=== PATIENT | female | born 1960 | race Caucasian/White ===

== ENCOUNTER 2022-06-18 09:56 | Outpatient (CLI) | payer MEDICAID, SELFPAY ==
[2022-06-18 10:44] LABS: Albumin* 4.2 g/dL (3.3-5.0); Chloride* 106 mmol/L (96-114); Sodium* 140 mmol/L (135-149)
[2022-06-18 10:45] LABS: Potassium* 4.1 mmol/L (3.6-5.1)
[2022-06-18 10:47] LABS: Alanine Aminotransferase* 19 U/L (4-35); Alkaline Phosphatase* 75 U/L (40-150); Aspartate Amino Transferase* 26 U/L (12-35); Bilirubin Total* 0.8 mg/dL (0.1-1.5); Blood Urea Nitrogen* 19 mg/dL (7-30); Calcium* 9.4 mg/dL (8.4-10.6); Carbon Dioxide* 29 mmol/L (20-32); Cholesterol* 215 mg/dL (90-199); Creatinine* 0.6 mg/dL (0.5-1.5); Estimated Glomerular Filt Rate 102 ml/min; Glucose* 84 mg/dL (60-115); Total Protein* 6.8 g/dL (6.0-8.3); Triglycerides* 150 mg/dL (40-149)
[2022-06-18 10:48] LABS: HDL Cholesterol* 58 mg/dL (>=50); LDL Cholesterol Calculated 127 mg/dL (<100)
[2022-06-18 15:02] LABS: Vitamin D 25 Hydroxy* 33 ng/mL (30-80)
== END 2022-06-18 09:57 | disposition home or self-care (01) ==
PROVIDERS: PCP Family Medicine; Visit Provider Family Medicine
DX: E78.5 Hyperlipidemia, unspecified (principal); R79.89 Other specified abnormal findings of blood chemistry
CPT/HCPCS: 80053; 80061; 82306

== ENCOUNTER 2023-07-25 08:23 | Outpatient (CLI) | payer MEDICAID, SELFPAY ==
--- OUTSIDE RECORDS SUMMARY | 2023-07-26 06:49 | XMS_ITS | Clinical Summary ---
Author Name Unknown Organization [facility] Address [address] [place] [address] Care Team Providers Care Dispatch Lead Name Role Phone Unavailable Primary Care Provider Unavailabl e Source Comments Patient records contain information from all sites at [facility]. For routine questions regarding patient records, call [phone] during business hours, M-F 8:00 AM - 5:00 PM Central Time. Record requests for emergency care only can be directed to [phone] at any time.[facility] Allergies No known active allergies Medications Medication Sig Dispensed Refills Start Date End Date Status lisinopriL (PRINIVIL,ZESTRIL) 10 mg tablet Take 1 tablet by mouth daily. 0 11/09/2016 Active multivitamin tablet Take 1 tablet by mouth daily. 0 08/09/2011 Active vit C/vit E/lutein/min/omega-3 (OCUVITE ORAL) Take 1 tablet by mouth daily. 0 Active calcium carb/vit D3/minerals (CALCIUM-VITAMIN D ORAL) Take 1 tablet by mouth daily. 600 mg with D3 0 Active omega 6-vpb-wdq-fish oil 1,000 mg (120 mg-180 mg) capsule Take 1 capsule by mouth daily. 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 Cancer Staging:Pathologic stage from 08/04/2021:Stage 0(pTis (DCIS), cN0, cM0, G3, ER+, OR+) - Unsigned Migraine Headache 06/15/2021 Deficiency Vitamin D 06/15/2021 Hypertension Essential Primary 06/15/2021 Encounters Date Type Department Care Team Description 07/24/2023 8:45 AM DIESEL RETROFIT INSTALLER Office Visit [facility] in [place], [place] [address] [place] [phone] Merlyn Sauceda, GENEVA, REWEAVER Cancer Breast Ductal In Situ Left (Primary Dx); Radiation Therapy Personal History; Cancer Breast Family History; Body Mass Index 39.0 To 39.9 Adult 07/11/2023 9:00 AM DIESEL RETROFIT INSTALLER Clinical Communication Virtual Review in [place], [place] [address] [place] [address] Pre-visit Intake 06/17/2023 1:46 PM DIESEL RETROFIT INSTALLER - 06/17/2023 11:59 PM DIESEL RETROFIT INSTALLER Hospital Encounter Department of Radiology in [place], [place] [address] [place] [phone] Laura Santacruz APRN, C.N.P., M.S.N. Cancer Breast Personal History; Screening Mammogram Breast Cancer Discharge Disposition: Home or Self Care 06/17/2023 7:37 AM DIESEL RETROFIT INSTALLER - 06/17/2023 1:45 PM DIESEL RETROFIT INSTALLER Hospital Encounter Department of Radiology in [place], [place] [address] [place] [phone] Laura Santacruz APRN, C.N.P., M.S.N. Dense Breasts, Unspecified Discharge Disposition: Home or Self Care from Last 3 Months Immunizations Name Administration Dates Next Due HepB Adult 04/07/2019,01/22/2003 HepB, Unspecified 07/11/2023(Deferred: Other - up to date) Influenza, Injectable, Mdck, Preservative Free, Quadrivalent 03/21/2023 Influenza, Seasonal, Injectable 04/11/2011 PCV20 07/11/2023(Deferred: Other - not up to date. would like information) PPSV23 12/24/2017 RZV (SHINGRIX) 09/26/2018,12/24/2017 SARS-COV-2 (COVID-19) - PFIZ ER (12 YEARS OR OLDER) [id number] 03/21/2023 Tdap 12/24/2017,11/20/2006 influenza vaccine QV(FLUBLOK ) (18 years or older) (PF) 04/07/2019 influenza vaccine quad (FLUZONE/FLUARIX) (6 months and older)(PF) 04/23/2022,04/06/2021,04/30/2018 Family History Medical History Relation Name Comments ADD Daughter 1 Cheryl Raza Anxiety disorder Daughter 1 Cheryl Raza Depression Daughter 1 Cheryl Raza ADD Daughter 2 Renzo Raza Heart attack Father Angel Luis Renee in his 90' s Hyperlipidemia Father Angel Luis Renee Hypertension Father Angel Luis Renee Breast cancer Mother Renzo Renee in 1989 a t age 54 Obesity Mother Renzo Renee Diabetes Paternal Grandmother Maida Frankie Sleep apnea Sister 1 Neetu Oswald Relation Name Status Comments Daughter 1 Cheryl Raza Daughter 2 Renzo Raza Father Angel Luis Renee Maternal Grandfather Maternal Grandmother Mother Renzo Renee Paternal Grandfather Paternal Grandmother Maida Frankie Sister 1 Neetu Oswald Alive Sister 2 Rowbanner Alive Social History Tobacco Use Types Packs/Day Years Used Date Smoking Tobacco: Never Passive Smoke Exposure: Never Smokeless Tobacco: Never Tobacco Cessation:Counseling Given: Not Answered Alcohol Use Standard Drinks/Week Comments Yes 0 (1 standard drink = 0.6 oz pure alcohol) maybe one glass of wine or mixed drink a month [facility] Gazoob Answer Date Recorded In the past 12 months has [facility] [employer], [employer], or water [employer] threatened to shut off services in your home? No 07/05/2023 Humiliation, Afraid, Rape, and Kick questionnair e Answer Date Recorded Within the last year, have y ou been afraid of your partner or ex-partner? No 02/14/2022 Within the last year, have y ou been humiliated or emotionally abused in other ways by your partner or ex-partner? No Within the last year, have y ou been kicked, hit, slapped, or otherwise physically hurt by your partner or ex-partner? No 02/14/2022 Within the last year, have y ou been raped or forced to have any kind of sexual activity by your partner or ex-partner? No 02/14/2022 Social Connection and Isolat ion Panel [NHANES] Answer Date Recorded In a typical week, how many times do you talk on the phone with family, friends, or neighbors? More than three times a week 02/14/2022 How often do you get togethe r with friends or relatives? Patient declined 02/14/2022 How often do you attend chur ch or amish services? Never 02/14/2022 Do you belong to any clubs o r organizations such as sikh groups, unions, fraternal or athletic groups, or school groups? No 02/14/2022 How often do you attend meet ings of the clubs or organizations you belong to? Patient declined 02/14/2022 Are you , , di vorced, , never , or living with a partner? 02/14/2022 AUDIT-C Answer Date Recorded Q1: How often do you have a drink containing alc ohol? Monthly or less 02/14/2022 Q2: How many drinks containi ng alcohol do you have on a typical day when you are drinking? Patient declined 02/14/2022 Q3: How often do you have si x or more drinks on one occasion? Never 02/14/2022 Overall Financial Resource Strain (CARDIA) Answe r Date Recorded How hard is it for you to pa y for the very basics like food, housing, medical care, and heating? Patient declined 02/14/2022 [facility] Occup[facility] ional [facility] - Occupational Stress Questionnaire Answer Date Recorded Do you feel stress - tense, restless, nervous, or anxious, or unable to sleep at night because your mind is troubled all the time - these days? Only a little 02/14/2022 Exercise Vital Sign Answer Date Recorde d On average, how many days pe r week do you engage in moderate to strenuous exercise (like a brisk walk)? 4 days 07/05/2023 On average, how many minutes do you engage in exercise at this level? 20 min 07/05/2023 Hunger Vital Sign Answer Date Recorded Within the past 12 months, y ou worried that your food would run out before you got the money to buy more. Never true 07/05/19 24 Within the past 12 months, t he food you bought just didn't last and you didn't have money to get more. Never true 07/05/2023 PRAPARE - Transportation Answer Date Re corded In the past 12 months, has l ack of transportation kept you from medical appointments or from getting medications? No 10/2023 In the past 12 months, has l ack of transportation kept you from meetings, work, or from getting things needed for daily living? No 07/05/2023 Nutrition Answer Date Recorded Nutrition: EVOO Fat Source Yes 07/05 On average, how many serving s of fruits and vegetables do you eat per day (serving size is equal to 1 cup or approximately the size of a tennis ball)? 3-5 07/05/2023 Dental Answer Date Recorded Dental: Regular Dentist Yes 06/20/20 Employment Answer Date Recorded Employment status Employed and actively working without restrictions 02/14/2022 Housing Stability Answer Date Recorded What is your living situation today? I have a [facility] place to live 07/05/2023 Education Answer Date Recorded What is the highest level of school you have completed or the highest degree you have received? Bachelor's degree (e.g., BA, AB, BS) 06/20/2021 Sex and Gender Information Value Date Recorded Sex Assigned at Female 06/20/2021 7:53 PM DIESEL RETROFIT INSTALLER Gender Identity Female 06/20/2021 7:53 PM DIESEL RETROFIT INSTALLER Sexual Orientation Straight 06/20/2021 7: 53 PM DIESEL RETROFIT INSTALLER Last Filed Vital Signs Vital Sign Reading Time Taken Comments Blood Pressure 126/81 07/24/2023 8:35 AM DIESEL RETROFIT INSTALLER Pulse 60 07/24/2023 8:35 AM DIESEL RETROFIT INSTALLER Temperature 36.4 ??C (97.5 ??F) 09/27/2021 3:19 PM CD T Respiratory Rate 14 08/04/2021 3:36 PM DIESEL RETROFIT INSTALLER Oxygen Saturation 99% 08/04/2021 3:36 PM DIESEL RETROFIT INSTALLER Inhaled Oxygen Concentration - - Weight 104 kg (228 lb 8.1 oz) 07/24/2023 8:35 AM DIESEL RETROFIT INSTALLER Height 162.3 cm (5' 3.9) 07/24/2023 8:35 AM DIESEL RETROFIT INSTALLER Body Mass Index 39.35 07/24/2023 8:35 AM DIESEL RETROFIT INSTALLER Plan of Treatment Health Maintenance Due Date Last Done Comments CT Colonography 1960 Cologuard 1960 Creatinine Level (Kidney Function Test) 1960 FIT 1960 Fasting Glucose for Diabetes Screening 1960 HIV Screening 1960 Hepatitis C Screening 1960 Lipid (Cholesterol) Screening 1960 Potassium Level 1960 Sodium Level 1960 Pneumococcal vaccine (0-64 years) (2 of 2 - PCV) 12/24/2018 12/24/2017 Hepatitis B Vaccines (3 of 3 - 19+ 3-dose series) 06/02/2019 04/07/2019, 01/22/2003 Depression Screening (Annual PHQ-2) 07/01/2023 Cervical Cancer Screening 06/07/20242020 (Performed elsewhere), 04/07/2019 Mammogram 06/17/2024 06/17/2023, 05/31, 06/22/2021, Additional history exists Office Visit for Blood Pressure Check / Re-check 07/24/2024 07/24/2023 DTaP,Tdap,and Td Vaccines (3 - Td or Tdap) 12/25/2027 12/24/2017, 11/20/2006 Colonoscopy 10/04/2031 10/03/2021 (Perf ormed elsewhere) Colorectal Cancer Screening 10/04/2031 Zoster Vaccines Completed 09/26/2018, 12/24/2017 COVID-19 Vaccine Completed 03/21/2023, 01/2023, 03/25/2022, Additional history exists Influenza Vaccine Completed 03/21/2023, , 04/06/2021, Additional history exists HPV Vaccines Aged Out No longer eligi ble based on patient's age to complete this topic Medical Devices Implanted Type Area Phytopathology Teacher Device Identifier Shelf Expiration Date Model / Serial / Lot Clp Hrzn Ti 6 Clp Sm Red - [id number] Implanted:Qty: 1 on 08/04/2021 by Shashi Cheema M.D. at [facility] Hardware e.g. pins/screws/r ods Loot! [id number] / / Procedures Procedure Name Priority Date/Time Associated Diagnosis Comments BI BREAST DIAGNOSTIC BILATERAL WITH TOMOSYNTHESIS RAD - Routine (most inpatients and all outpatients) 06/17/2023 2:19 PM DIESEL RETROFIT INSTALLER Cancer Breast Personal History Screening Mammogram Breast Cancer NM MBI BREAST STUDY RAD - Routine (most inpatients and all outpatients) 06/17/2023 9:07 AM DIESEL RETROFIT INSTALLER Dense Breasts, Unspecified from Last 3 Months Results * BI Breast Diagnostic Bilateral with Tomosynthesis (06/17/2023 2:19 PM DIESEL RETROFIT INSTALLER) Anatomical Region Laterality Modality Breast, Breast Imaging RST L OS, Breast Imaging ARZ LOS, Breast Imaging FLA LOS Bilateral Mammography 06/17/2023 2:35 PM DIESEL RETROFIT INSTALLER Impressions 06/17/2023 2:51 PM DIESEL RETROFIT INSTALLER No mammographic findings of malignancy. RECOMMENDATION: ??Resume Routine Mammogram Annual diagnostic mammography is recommended for the 1st 5 years following breast conservation therapy. ASSESSMENT: ??BI-RADS: 1: Negative. Narrative 06/17/2023 2:51 PM DIESEL RETROFIT INSTALLER EXAM: ??BI BREAST DIAGNOSTIC BILATERAL WITH TOMOSYNTHESIS INDICATION: ??History of left breast cancer status post lumpectomy and radiation in 2021. COMPARISON: ??Prior exam(s) were available and reviewed for comparison. DENSITY: ??c. The breast(s) are heterogeneously dense, which may obscure small masses. FINDINGS: ??Postoperative and post radiation change in the left breast. No change since prior exam. Procedure Note Melly Gatica M.D. - 06/17/2023 EXAM: BI BREAST DIAGNOSTIC BILATERAL WITH TOMOSYNTHESIS INDICATION: History of left breast cancer status post lumpectomy andradiation in 2021. COMPARISON: Prior exam(s) were available and reviewed for comparison. DENSITY: c. The breast(s) are heterogeneously dense, which may obscuresmall masses. FINDINGS: Postoperative and post radiation change in the left breast. Nochange since prior exam. IMPRESSION: No mammographic findings of malignancy. RECOMMENDATION: Resume Routine Mammogram Annual diagnostic mammography is recommended for the 1st 5 years followingbreast conservation therapy. ASSESSMENT: BI-RADS: 1: Negative. Laura Santacruz APRN, C.N.P., M.S.N. IMG B I PROCEDURES * (ABNORMAL) WI Molecular Breast Imaging (06/17/2023 9:07 AM DIESEL RETROFIT INSTALLER) Anatomical Region Laterality Modality Breast, Nuclear Medicine RST LOS, Breast Imaging ARZ LOS, Breast Imaging FLA LOS, Nuclear Medicine N/A Nuclear Medic ine 06/17/2023 9:54 AM DIESEL RETROFIT INSTALLER Impressions 06/17/2023 9:58 AM DIESEL RETROFIT INSTALLER Stable probably benign uptake in the left breast. RECOMMENDATION: ??Short-Term Follow-Up 12 Month MBI in 12 months. Annual post lumpectomy diagnostic mammogram which will be due May 2023. ASSESSMENT: ??BI-RADS: 3: Probably Benign. Narrative 06/17/2023 9:58 AM DIESEL RETROFIT INSTALLER EXAM: ??NM MOLECULAR BREAST IMAGING INDICATION: ??MBI follow-up HORMONAL STATUS: ??Postmenopausal. COMPARISON: ??No prior exams were available for comparison. TECHNIQUE: ??Bilateral CC and MLO views obtained on a dual-head CZT gamma camera after radiotracer injection. ?? RADIOISOTOPE DOSE: ?? Route: intravenous technetium Tc 99m sestamibi injection (MBI) (Tc-99m SESTAMIBI),8.8 millicurie BACKGROUND UPTAKE INTENSITY: ??b. Minimal/Mild FINDINGS: ?? RIGHT BREAST: ??No abnormal radiotracer uptake in the right breast. LEFT BREAST: ??Stable mild intensity radiotracer uptake in the upper outer left breast posterior depth corresponding to the lumpectomy site. Procedure Note Shahana Ocasio M.D. - 06/17/2023 EXAM: NM MOLECULAR BREAST IMAGING INDICATION: MBI follow-up HORMONAL STATUS: Postmenopausal. COMPARISON: No prior exams were available for comparison. TECHNIQUE: Bilateral CC and MLO views obtained on a dual-head CZT gammacamera after radiotracer injection. RADIOISOTOPE DOSE: Route: intravenous technetium Tc 99m sestamibi injection (MBI) (Tc-99m SESTAMIBI),8.8millicurie BACKGROUND UPTAKE INTENSITY: b. Minimal/Mild FINDINGS: RIGHT BREAST: No abnormal radiotracer uptake in the right breast. LEFT BREAST: Stable mild intensity radiotracer uptake in the upper outerleft breast posterior depth corresponding to the lumpectomy site. IMPRESSION: Stable probably benign uptake in the left breast. RECOMMENDATION: Short-Term Follow-Up 12 Month MBI in 12 months. Annual post lumpectomy diagnostic mammogram which willbe due May 2023. ASSESSMENT: BI-RADS: 3: Probably Benign. Laura Santacruz APRN, C.N.P., M.S.N. IMG N M PROCEDURES from Last 3 Months Advance Directives For more information, please contact: [phone] Latest Code Status on File Code Status Date Activated Date Inactivated Comments Full Code 08/04/2021 8:10 AM 08/04/2021 7:57 PM Question Answer Comments Full Code: Not Discussed Due to: Not medically appropriate
--- OUTSIDE RECORDS SUMMARY | 2023-07-26 06:50 | XMS_ITS | Encounter Summary ---
Author Name Unknown Organization [facility] Address [address] [place] [address] Care Team Providers Care Documentation Analyst Name Role Phone Unavailable Primary Care Provider Unavailabl e Reason for Visit * Reason Onset Date Comments imaging 04/15/2023 Encounter Details Date Type Department Care Team (Late st Contact Info) Description 04/15/2023 Clinical Communication Breast Diagnostic Clinic in [place], [place] [address] [place] [phone] Laura Santacruz, GENEVA, C.N.P., M.S.N. [address] [place] [phone] imaging Social History Tobacco Use Types Packs/Day Years Used Date Smoking Tobacco: Never Smokeless Tobacco: Never Alcohol Use Standard Drinks/Week Comments Yes 0 (1 standard drink = 0.6 oz pure alcohol) maybe one glass of wine or mixed drink a month Humiliation, Afraid, Rape, and Kick questionnair e [...] often do you attend chur ch or catholic services? Never 02/14/2022 Do you belong to any clubs o r organizations such as baptism groups, unions, fraternal or athletic groups, or [...] medical care, and heating? Patient declined 02/14/2022 [facility] - Occupational Stress Questionnaire Answer Date Recorded [...] exercise (like a brisk walk)? 4 days 02/14/2022 On average, how many minutes do you engage in exercise at this level? 20 min 02/14/2022 Hunger Vital Sign Answer Date Recorded Within the past 12 months, y ou worried that your food would run out before you got the money to buy more. Never true 08/17/20 22 Within the past 12 months, t he food you bought just didn't last and you didn't have money to get more. Never true 02/14/2022 PRAPARE - Transportation Answer Date Re corded In the past 12 months, has l ack of transportation kept you from medical appointments or from getting medications? No 01/29 In the past 12 months, has l ack of transportation kept you from meetings, work, or from getting things needed for daily living? No 02/14/2022 Housing Stability Vital Sign Answer Dewayne e Recorded In the last 12 months, was t here a time when you were not able to pay the mortgage or rent on time? Patient refused 02/15/20 In the last 12 months, how many places have you lived? 1 02/14/2022 In the last 12 months, was t here a time when you did not have a steady place to sleep or slept in a long term (including now)? No 02/14/2022 Nutrition Answer Date Recorded Nutrition: EVOO Fat Source Yes 02/14 On average, how many serving s of fruits and vegetables do you eat per day (serving size is equal to 1 cup or approximately the size of a tennis ball)? 2-3 02/14/2022 Dental Answer Date Recorded Dental: Regular Dentist Yes 06/20/20 Employment Answer Date Recorded Employment status Employed and actively working without restrictions 02/14/2022 Education Answer Date Recorded What is the highest level of school you have completed or the highest degree you have received? Bachelor's degree (e.g., BA, AB, BS) 06/20/2021 Sex and Gender Information Value Date Recorded Sex Assigned at Female 06/20/2021 7:53 PM SURGERY AID Gender Identity Female 06/20/2021 7:53 PM SURGERY AID Sexual Orientation Straight 06/20/2021 7: 53 PM SURGERY AID documented as of this encounter Miscellaneous Notes * Telephone Encounter - Mya Olguin - 04/22/2023 12:20 PM CDT Srinivas Vick is now open for this week. Please advise. * Telephone Encounter - Mya Olguin - 04/15/2023 9:08 AM CDT Nicanor, Patient called in today stating that her insurance reached out and that it is going to change come July and will no longer cover her MBI. She is currently scheduled to see you in Jul but would like to get her imaging done in May while ins still covers. Checking to see if this is fine with you? Thank you. documented in this encounter Plan of Treatment Not on file documented as of this encounter Visit Diagnoses Not on filedocumented in this encounter
--- OUTSIDE RECORDS SUMMARY | 2023-07-26 06:50 | XMS_ITS | Encounter Summary ---
Author Name Unknown Organization [facility] Address [address] [place] [address] Care Team Providers Care Malt Roaster Name Role Phone Unavailable Primary Care Provider Unavailabl e Reason for Visit * Reason Onset Date Comments Pre-visit Intake 12/24/2022 Encounter Details Date Type Department Care Team (Latest Contact Info) Description 12/24/2022 9:30 AM CDT Clinical Communication Virtual Review in [place], [place] 200 [place] [address] Pre-visit Intake Social History Tobacco Use Types Packs/Day Years Used Date Smoking Tobacco: Never Smokeless Tobacco: Never Tobacco Cessation:Counseling Given: [...] often do you attend chur ch or cheondoism services? Never 02/14/2022 Do you belong to any clubs o r organizations such as rastafarian groups, unions, fraternal or athletic groups, or [...] medical care, and heating? Patient declined 02/14/2022 [facility] Occupat ional Health - Occupational Stress Questionnaire [...] the money to buy more. Never true 02/15/20 22 Within the past 12 months, t [...] place to sleep or slept in a fdc (including now)? No 02/14/2022 Nutrition Answer Date [...] Sex Assigned at Female 06/20/2021 7:53 PM CALCULUS PROFESSOR Gender Identity Female 06/20/2021 7:53 PM CALCULUS PROFESSOR Sexual Orientation Straight 06/20/2021 7: 53 PM CALCULUS PROFESSOR documented as of this encounter Plan of Treatment Not on file documented as of this encounter Visit Diagnoses Not on filedocumented in this encounter
--- OUTSIDE RECORDS SUMMARY | 2023-07-26 06:50 | XMS_ITS | Encounter Summary ---
Author Name Unknown Organization [facility] Address [address] [place] [id number] Care Team Providers Care Dredge Master Name Role Phone Unavailable Primary Care Provider Unavailabl e Reason for Referral * Outpatient (Routine) - Authorized Specialty Diagnoses / Procedures Referred By Contac t Referred To Contact Diagnoses Dense Breasts, Unspecified Procedures NM Molecular Breast Imaging Laura Santacruz APRN, C.ND[place], M.S.N. [address] [place] [phone] [facility] Referral ID Status Reason Start Date Expiration Date V isits Requested Visits Authorized [id number] Authorized 12/25/2022 12/25/2023 6 6 ING SPECIALIST Reason for Visit * Outpatient (Routine) - Authorized Specialty Diagnoses / Procedures Referred By Contac t Referred To Contact Diagnoses Dense Breasts, Unspecified Procedures NM Molecular Breast Imaging Laura Santacruz APRN, C.ND[place], M.S.N. [address] [place] [phone] [facility] Referral ID Status Reason Start Date Expiration Date V isits Requested Visits Authorized [id number] Authorized 12/25/2022 12/25/2023 6 6 Encounter Details Date Type Department Care Team (Latest Contact Info) Description 06/17/2023 7:37 AM SELLING SPECIALIST - 06/17/2023 1:45 PM SELLING SPECIALIST Hospital Encounter Department of Radiology in [place], [place] [address] [place] [address] Laura Satnacruz APRN, C.N.P., M.S.N. [address] [place] [address] Dense Breasts, Unspecified Discharge Disposition: Home or Self Care Social History Tobacco Use Types Packs/Day Years [...] often do you attend chur ch or rastafarian services? Never 02/14/2022 Do you belong to any clubs o r organizations such as alevism groups, unions, fraternal or athletic groups, or [...] medical care, and heating? Patient declined 02/14/2022 [facility] - Occupational Stress [...] money to buy more. Never true 02/15/20 Within the past 12 months, t he [...] place to sleep or slept in a mcc (including now)? No 02/14/2022 Nutrition Answer Date [...] Sex Assigned at Female 06/20/2021 7:53 PM SELLING SPECIALIST Gender Identity Female 06/20/2021 7:53 PM SELLING SPECIALIST Sexual Orientation Straight 06/20/2021 7: 53 PM SELLING SPECIALIST documented as of this encounter Medications at Time of Discharge Medication Sig Dispensed Refills Start Date End Date calcium carb/vit D3/minerals (CALCIUM-VITAMIN D ORAL) Take 1 tablet by mouth daily. 600 mg with D3 0 lisinopriL (PRINIVIL,ZESTRIL) 10 mg tablet Take 1 tablet by mouth daily. 0 11/09/2016 multivitamin tablet Take 1 tablet by mouth daily. 0 08/09/2011 omega 0-obc-bev-fish oil 1,000 mg (120 mg-180 mg) capsule Take 1 capsule by mouth daily. 0 07/01/2019 vit C/vit E/lutein/min/omega-3 (OCUVITE ORAL) Take 1 tablet by mouth daily. 0 documented as of this encounter Plan of Treatment Not on file documented as of this encounter Procedures Procedure Name Priority Date/Time Associated Diagnosis Comments NM MBI BREAST STUDY RAD - Routine (most inpatients and all outpatients) 06/17/2023 9:07 AM SELLING SPECIALIST Dense Breasts, Unspecified documented in this encounter Results * (ABNORMAL) NM Molecular Breast Imaging (06/17/2023 9:07 AM SELLING SPECIALIST) Anatomical Region Laterality Modality Breast, Nuclear Medicine RST LOS, Breast Imaging ARZ LOS, Breast Imaging FLA LOS, Nuclear Medicine N/A Nuclear Medic ine 06/17/2023 9:54 AM SELLING SPECIALIST Impressions 06/17/2023 9:58 AM SELLING SPECIALIST Stable probably benign uptake in the left breast. RECOMMENDATION: ??Short-Term Follow-Up 12 Month MBI in 12 months. Annual post lumpectomy diagnostic mammogram which will be due May 2023. ASSESSMENT: ??BI-RADS: 3: Probably Benign. Narrative 06/17/2023 9:58 AM SELLING SPECIALIST EXAM: ??NM MOLECULAR BREAST IMAGING INDICATION: ??MBI [...] 2023. ASSESSMENT: BI-RADS: 3: Probably Benign. Laura Dorie Santacruz APRN, C.N.P., M.S.N. IMG N M PROCEDURES documented in this encounter Visit Diagnoses Diagnosis Dense Breasts, Unspecified documented in this encounter Administered Medications Inactive Administered Medications - up to 3 most recent administrations Medication Order MAR Action Action Date Dose Rate Site technetium Tc 99m sestamibi injection (MBI) (Tc-99m SESTAMIBI) 8.8 millicurie, intravenous, Once, On Sat06/17/23 at 0845, For 1 dose Given 06/17/2023 7:58 AM SELLING SPECIALIST 8.8 millicuries Left Antecubital documented in this encounter
--- OUTSIDE RECORDS SUMMARY | 2023-07-26 06:50 | XMS_ITS ---
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 Past Plans No past plan information found. Radiation Treatments * Plan Last Treated On Elapsed Days Fractions Treated Prescribed Fraction Dose Prescribed Total Dose [id number] 10/03/2021 13 4 of 4 250 cGy 1,000 cGy [id number] 09/26/2021 6 5 of 5 520 cGy 2,600 cGy Reference Point Last Treated On Elapsed Days Session Dose Total Dose [id number] 10/03/2021 13 250 cGy 3,600 cGy [id number] 09/26/2021 6 520 cGy 2,600 cGy Treatment Summaries Cancer Breast Ductal In Situ Left* Images from the original note were not included. Your Survivorship Care Plan Provided on 02/15/2022 General Information Patient name Joleen Raza (home) Date of 1960 Introduction This is your personal survivorship care plan. It is both a summary of your treatment history as well as a follow-up plan to guide you through the management of your continued medical care. The plan was developed by a multidisciplinary team of [place] cancer providers to help you understand, discuss, and plan post-treatment needs with your healthcare providers, including your primary care team. It includes detailed medical information regarding your treatment as well as information relating to potential shorter and long-term side-effects post-treatment. What is Survivorship? The most widely used definition of survivorship care involves the following elements: 1. Prevention of recurrent and new cancers, and of other late effects; 2. Surveillance for cancer spread, recurrence, or second cancers; assessment of medical and psychosocial late effects; 3. Intervention for consequences of cancer and its treatment, for example: medical problems such aslymphedema and sexual dysfunction; symptoms, including pain and fatigue; psychological distress experienced by cancer survivors and their caregivers; and concerns related to employment, insurance, and disability; and 4. Coordination between specialists and primary care providers to ensure that all of the survivors health needs are met. Care Team Patient Care Team: Rhiannon Dawn M.D. as External Primary Care Physician (Family Medicine) Domi Alvarado M.D. (Breast Clinic) Ntetie Templeton APRN C.N.PSukhjinder (Breast Survivorship Clinic) Delisa Mcarthur M.[place]., [facility]) Shashi Cheema M.D. (Breast Surgery) Al Biswas M.D. (Radiation Oncology) Cancer Diagnosis and Staging Information Diagnosis Cancer Breast Ductal In Situ Left Diagnosis date 07/18/2021 Staging information Cancer Staging Cancer Breast Ductal In Situ Left Staging form: Breast, AJCC 8th Edition - Pathologic stage from 08/04/2021: Stage 0 (pTis (DCIS), cN0, cM0, G3, ER+, HI+) Genetic Testing Performed Ms. Raza was originally seen in the Department of Clinical Genomics on 06/28/2021 due to her personal history of breast cancer and family history of cancer. At this visit, the patient elected to pursue the STAT Breast Cancer Panel, the Colorectal Cancer Panel and the Breast Cancer Panel through [facility]. Genetic testing included sequence analysis and gross deletion/duplication analysis of 51 genes associated with hereditary cancer. For a full list of genes included in the analysis, please refer to the genetic test report scanned into the patient's chart (Media tab). 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 The MUTYH gene associated with an autosomal recessive condition called MUTYH- associated polyposis, or MAP, in which individuals have a high risk of developing colorectal polyps and colorectal cancer.This condition occurs when an individual has biallelic (two) MUTYH mutations, meaning an individualhas mutations in both copies of their MUTYH gene, one inherited from their mother and one inheritedfrom their father. 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 Background Information Family history Cancer-related family history includes Breast cancer in her mother. Social History Alcohol use reports current alcohol use. Tobacco use reports that she has never smoked. She has never used smokeless tobacco. Treatment Summary Breast Cancer Oncology History Oncology History Cancer Breast Ductal In Situ Left 05/17/2021 Imaging May 17, 2021: Bilateral screening mammogram demonstrated diffuse punctate calcifications throughout both breasts, unchanged since 2016, favored to be benign given the bilaterality and stability.No mammographic findings of malignancy in the right breast. Calcifications in the outer central left breast posterior depth. May 23, 2021: Left breast diagnostic mammogram demonstrated fine pleomorphic and fine linear branching microcalcifications in a segmental distribution spanning 3.9 cm in the outer central left breast, posterior depth. 06/19/2021 Biopsy/Pathology Stereotactic core biopsy of the outer left breast was performed. Pathology demonstrated ductal carcinoma in-situ (DCIS), intermediate nuclear grade, cribriform type with calcifications, necrosis, andabundant intraductal mucin production. Estrogen receptor positive (51-60%). Progesterone receptor positive (51-60%). 06/22/2021 Imaging MRI of the bilateral breasts demonstrated no findings of malignancy in the right breast. No right axillary lymphadenopathy. Post biopsy changes in the lower outer left breast middle depth with susceptibility artifact from a biopsy clip was within the biopsy cavity. There was non-mass enhancement surrounding the biopsy cavity, corresponding to the distribution of calcifications on prior mammogram.The entire area of enhancement about the biopsy site was approximately 4.3 x 4.2 x 1.6 cm; while some of this may be secondary to post biopsy change, the enhancement was clumped and somewhat nodular and concerning for residual DCIS. No other suspicious enhancement or mass in the left breast. Benign intramammary lymph node in the upper outer quadrant. No left axillary lymphadenopathy. No internal mammary lymphadenopathy. BI-RADS 6. 07/25/2021 Genetic Testing and Tumor Genotyping Germline genetic testing; STAT Breast Cancer Panel with reflex testing to the full Breast Cancer panel and the Colorectal Cancer panel through [facility]. 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 08/04/2021 Surgery and Procedures Left breast seed localized lumpectomy was performed by Dr. Shashi Cheema. PATHOLOGY: A. Breast, left, lumpectomy: Ductal carcinoma in situ (DCIS), high nuclear grade, involving an area 12 x 9 x 8 mm. All margins, [id number] of the anterior and superior margins (parts B and C below), are negative for DCIS. See synoptic report. B. Breast, left, new anterior margin at 4 o'clock, re-excision: Negative for tumor. C. Breast, left, new superior margin at 4 o'clock, re-excision: Negative for tumor. SYNOPTIC REPORT: Breast - Ductal Carcinoma In Situ Procedure: Excision Specimen Laterality: Left Tumor Site: Not specified Histologic Type: Ductal carcinoma in situ Size (Extent) of DCIS: Estimated size (extent) of DCIS is at least 12 mm Additional dimensions: 9 x 8 mm Architectural Pattern: Cribriform, solid Nuclear Grade: Grade III Necrosis: Present, central Microcalcifications: Present in DCIS and nonneoplastic tissue Margin Status: All margins negative for DCIS Distance from DCIS to closest margin: 5 mm Closest margin to DCIS: Anterior Regional Lymph Node Status: Not applicable (no regional lymph nodes submitted or found) Distant Metastasis. Distant Site(s) Involved: Not applicable Pathologic Stage Classification (AJCC, 8th edition) TNM Descriptors: Not applicable pT Category: pTis (DCIS) Regional Lymph Nodes Modifier: Not applicable pN Category: pN not assigned (no nodes submitted or found) pM Category: Not applicable Additional Pathologic Findings: Not applicable Special Studies: Previously reported 08/16/2021 Other Radiation Oncology video consultation with Dr. Camilo Mantilla who recommended adjuvant radiation therapy. He recommended whole breast radiation with a boost to the surgical cavity with a margin delivered over 1-2 weeks. Referral to Radiation Oncology in [place] to be scheduled in mid August after the patient returns from her planned trip to [facility]. 08/17/2021 Other Breast Clinic appointment with Dr. Domi Alvarado who discussed the role for adjuvant endocrine therapy in ER positive DCIS. Plan to begin exemestane after radiation therapy. 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 -Physical examinations should be performed every 3 to 6 months for the first 3 years, every 6 to 12months for years 4 and 5, and annually thereafter. -Monthly breast and/or chest wall self examinations. -Women who have undergone breast conserving surgery should have a post treatment mammogram 1 year after the initial mammogram and at least 6 months after completion of radiation therapy. Thereafter, unless otherwise indicated, a yearly mammographic evaluation should be performed. Surveillance visits How often: Every 6 months for 3-5 years, then annually With Who: Breast Clinic Additional information: Imaging (mammograms) How often: Yearly Where: Additional information: Due May or May 2022 Follow-up care with your Primary Care Physician (PCP) Follow-up care with your primary care physician is recommended for age- appropriate cancer screenings, for monitoring blood pressure, cholesterol, blood sugar, weight, and for other medical conditions. Long- term Side effects Possible late and long-term effects of cancer treatment can include bone thinning, menopausal symptoms, and nerve damage. Please talk to your care team about ways to manage these side effects. Side Effects from Radiation Therapy Side effects from radiation therapy tend to build up; they may affect you more toward the end of your radiation treatment. Side effects usually lessen over time after radiation treatment ends. Common side effects include the following: Fatigue is the most common side effect of radiation therapy. Try to plan for this possibility by limiting your extra activities so that you can rest whenever you feel the need. Sometimes putting yourfeet up for 15 to 20 minutes can help you feel rested. Your skin near the radiation site may feel as if it were sunburned. It may be itchy, red, shiny, sore or swollen and may peel or blister. For some women, sensation at the radiation site may increase or it may decrease. -You may have swelling, pain, or tenderness in the breast. -Your breast may become tender, darker, firmer or smaller from radiation therapy. -You also may have a feeling of heaviness in the breast. These changes may be permanent. More serious, long-term complications are rare but they can occur. These include rib fractures, lung inflammation, nerve damage and injury to the heart. In extremely rare cases, a new tumor may result from radiation therapy. If you receive radiation after a mastectomy with immediate reconstruction,you may be at higher risk for healing problems and for the reconstruction to fail, and you may needmore surgery. How your breast looks may not be as good as it would have been had you not received radiation. If you experience or have concerns about the side effects of radiation therapy, talk with your health care provider. Side Effects from Endocrine Therapy Endocrine therapy uses medication that travels through your body to either reduce the amount of hormones that reach hormone-sensitive cancer cells or block the action of estrogen so cancer cells stopgrowing and . Women whose tumors are hormone receptor positive generally have a lower rate of cancer returning inthat location and have a longer overall survival rate. Hormonal therapy appears to lessen the chance of recurrence and improve survival rates. Tamoxifen (Nolvadex???) blocks a tumor???s ability to use hormones. It typically is taken daily in pill form for five years after cancer surgery. Tamoxifen is available for women who are premenopausal or postmenopausal. Common side effects of tamoxifen include: -Hot flashes or night sweats. -Nausea. -Irregular periods in women prior to menopause. -Vaginal discharge. -Vaginal itching, dryness or irritation. Less frequent symptoms include depression, loss of appetite, eye problems such as cataracts, headache, and weight gain. There also can be an increased risk of blood clots, strokes and uterine cancerssuch as endometrial cancer. Another group of hormonal medications called aromatase inhibitors are available for post-menopausalwomen who have hormone receptor positive breast cancer. Rather than blocking a tumor???s ability touse estrogen, aromatase inhibitors prevent tumor growth by reducing the amount of estrogen the bodyproduces. The three aromatase inhibitors currently approved for use in breast cancer treatment are anastrozole (Arimidex???), exemestane (Aromasin???) and letrozole (Femara???). Aromatase inhibitors come in pill form and typically are taken daily for five years. They appear to be as effective as tamoxifen, with fewer side effects and less risk of blood clots and uterine cancer. However, aromatase inhibitors are associated with a small increased risk for osteoporosis. Common side effects of aromatase inhibitors include: -Joint/ muscle pain -Muscle pain. -Hot flashes. -Vaginal dryness. -Fatigue Symptoms of Recurrence In addition, please contact your healthcare provider with any new symptoms that may signify a breast cancer recurrence including lumps or skin changes on your breast or chest wall, pain that lasts more than a few weeks, difficulty breathing, or unintentional weight loss. Understand the Emotional Impact After cancer treatment, you may feel your life has changed in some ways that are hard to explain. It may seem hard to get back to ???normal.?? It is common for people who have had cancer to feel many emotions, including anxiety, depression, anger, grief or guilt. These are reasonable responses to a big health change. To help handle these emotions, you may need to decide what ???normal?? means to you after all the changes you have gone through. Doing this may help you find a new way to live that brings you more mick and meaning. If you feel emotionally overwhelmed after your cancer treatment, tell your health care provider. She or he may be able to connect you with a support group or other support services. Your health care provider may also offer you treatment choices for specific concerns or refer to you a mental health p rofessional. * Anxiety Anxiety is a common emotion among people who have had cancer. Fear of cancer coming back often causes anxiety. Because of this, follow-up testing can be stressful. Other common sources of anxiety include job issues, concerns about money or relationships, and worries about the physical effect of cancer treatment. What you can do -Talk about your worries with someone you trust. -Try stress management tools, such as meditation, prayer and regular exercise. -Learn the signs that may tell you your cancer has returned. Learn what you can do to lower your cancer risk. -Focus on the healthy choices you can make in areas of your life that you can control. If anxiety makes your daily life difficult, see your health care provider. * Depression After cancer treatment, you may have many different feelings as you think about what you have been through. Some of these feelings may not be positive. That is normal. However, negative feelings thatstay with you for more than two weeks or get in the way of your daily life can be signs of depression. If this happens to you, talk to your health care provider. Symptoms of depression include: -Sadness -Hopelessness -Loss of interest in activities -Irritability -Difficulty Sleeping -Change in appetite -Difficulty concentrating -Problems thinking clearly * Anger Many cancer survivors feel a sense of anger. Cancer may change many parts of your life, including relationships, school, work, and snf plans. Anger is a normal response to those changes. What you can do? It is important to express your anger in a healthy way. Talk about the way you are feeling with someone you trust. Think about whether you can talk with: -Friends -Family members -Other people who have been through cancer -A professional counselor -Your health care provider Fatigue Some cancer survivors report that they still feel tired or worn out. In fact, fatigue is one of themost common complaints during the first year of recovery. Rest or sleep does not cure the type of fatigue that you may have. Doctors do not know its exact causes. The causes of fatigue are different for people who are receiving treatment than they are for those who have finished. Fatigue during treatment can be caused by cancer therapy. Other problems can also play a part in fatigue, like anemia (having too few red blood cells) or having a weak immune system. Poor nutrition, not drinking enoughliquids, and depression can also be causes. Pain can make fatigue worse. Researchers are still learning about what may cause fatigue after treatment. How long will fatigue last? There is no normal pattern. For some, fatigue gets better over time. Some people may still feel energy loss years later. Some people feel very frustrated when fatigue lasts longer than they think it should and when it gets in the way of their normal routine. They may also worry that their friends, family, and coworkers will get upset with them if they continue to show signs of fatigue. Getting Help Talk with your doctor or nurse about what may be causing your fatigue and what can be done about it. Ask about: -How many medicines you are taking or other medical problems you have might affect your energy level -How you can control your pain, if pain is a problem for you -Exercise programs that might help, such as walking -Relaxation exercises -Changing your diet or drinking more fluids -Medicines or nutritional supplements that can help -Specialists who might help you, such as physical therapists, occupational therapists, supply chain specialist, or mental health care providers Coping With Fatigue Here are some ideas: -Plan your day. Be active at the time of day when you feel most alert and energetic. -Save your energy by changing how you do things. For example, sit on a stool while you cook or washdishes. -Take short naps or rest breaks between activities. -Try to go to sleep and wake up at the same time every day. -Do what you enjoy, but do less of it. Focus on old or new interests that don???t tire you out. Forexample, try to read something brief or listen to music. -Let others help you. They might cook a meal, run errands, or do the laundry. If no one offers, askfor what you need. Friends and family might be willing to help but may not know what to do. -Choose how to spend your energy. Try to let go of things that don???t matter as much now. -Think about joining a support group. Talking about your fatigue with others who have had the same problem may help you find new ways to cope. Sexual Changes Sexuality is part of being human. Love, affection and intimacy all play a role in healthy relationships. Cancer and its treatments may change the way you view your body and your ability to be intimate with your partner. What you can do: -After treatment, ask your health care provider about sexual changes you can expect. -Be open and communicate with your partner about your feelings, concern and needs. You may need to find new ways to be intimate and to express your love. -Talk with your health care provider about any concerns you may have. You also may find it helpful to speak with a provider who specializes in sexuality. Spiritual issues A cancer diagnosis may change your spirituality. You may find it to be stronger and deeper and fromthe challenges you have overcome, or you may feel abandoned and struggle with the question Why me? What you can do - Take time to think about your spirituality. Try to find a sense of peace within your own spiritual framework. -Talk with your spiritual or production team leader to help guide you through some of the questions raised by your illness. -Consider using the [facility] Operator staff at [facility] to help you with your spiritual questions. Changes in Weight and Eating Habits Some survivors who have had certain kinds of chemotherapy or medicines have problems with weight gain. Sometimes the added pounds stay on even when treatment ends. Breast cancer survivors who have had certain types of chemotherapy gain weight in a different way--they may lose muscle and gain fat tissue. Unfortunately, the usual ways people try to lose weight may not work for them. Try to be patient with yourself. Look for the positive things that you can control, such as eating a healthy diet. Try to focus on the fact that treatment is over, and you are trying to get stronger with time. Some cancer survivors have the opposite problem: they have no desire to eat, and they lose weight. Some men say that weight loss or loss of muscle tone is a bigger concern for them than weight gain. It makes them feel less strong and like less of a man. Managing a Healthy Weight For weight issues, ask your doctor or nurse about: -Doing strength-building exercises, if you have lost muscle or gained fat tissue -Talking to a dietitian or laundry tub maker who can help you plan a healthy diet that won???t add extrapounds Regaining a Lost Appetite Here are some tips that have helped others improve their appetites: -Start with small meals. Five small meals a day may be easier to manage than three larger ones. -Focus on your favorite foods. If the thought of eating still lacks appeal, try the foods you really liked before treatment to jump-start your appetite. Try adding some fresh fruit, juice, or other flavoring to improve the taste. -Stay active. A short walk before a meal can help you feel hungry. Back to Work Going back to work can be a challenging transition after cancer treatment. If you have questions about employment, ask your health care provider to refer you to a [facility] social security specialist. He or shecan give you workplace information. Americans with Disabilities Act If you believe that your physical function is temporarily or permanently affected by cancer or its treatment, you should know about the Americans with Disabilities Act, or ADA. ADA bans discrimination against qualified employees with disabilities who can perform the essential functions of their job, with or without reasonable accommodations. Cancer survivors who return to work are due any reasonable change or adjustment in their work environment that allows a person with a disability to have equal opportunities. A social security specialist can help you look at your situation and the Americans with Disabilities Act Genetic testing and employment Sometimes cancer diagnosis and treatment involves genetic testing. This information becomes a part of your medical record. It is against the law for an employer to discriminate against a job applicant or a current or former employee because of genetic information. Wellness Recommendations: Healthy food choices include a wide variety of fruits, vegetables, whole grains, poultry, and fish while minimizing refined grains, processed and red meats, desserts, and high?fat dairy products. Exercise after cancer treatment improves quality of life, fatigue, mood, muscle strength, and physical functioning. It also decreases the risk of cancer recurrence and the risk of cardiovascular disease. Work up to exercising 30 minutes/day at least 5 days/week, and strive to achieve a healthy weight (BMI 18.5?25). Alcohol use is linked to the risk of breast cancer recurrence. Minimize alcohol, and if you drink, do not drink more than 1 alcoholic beverage per day (5 oz of wine, 12 oz of beer, or 1 ounce of liquor). For some specific cancer types, alcohol use may increase the risk of recurrence; please talk with your provider. Tobacco use may also increase risk of breast cancer recurrence. If you smoke, talk to your doctor to help you quit. The [facility] can help. Stress management tools such as meditation, prayer, and breathing exercises may be helpful. If you develop feelings of worry, anxiety, sadness, or hopelessness that persist for > 2 weeks, talk to a health care provider. Sleep is important for healing and well-being. Most adults require 7?9 hours of sleep/night. If youare having difficulty sleeping, talk to your provider.
--- OUTSIDE RECORDS SUMMARY | 2023-07-26 06:50 | XMS_ITS | Encounter Summary ---
Author Name Unknown Organization [facility] Address [address] [place] [id number] Care Team Providers Care Machine Trimmer Name Role Phone Unavailable Primary Care Provider Unavailabl e Reason for Referral * Outpatient (Routine) - Closed Specialty Diagnoses / Procedures Referred By Pamella t Referred To Contact Diagnoses Dense Breasts, Unspecified Procedures NM Molecular Breast Imaging Laura Santacruz APRN, C.ND[place], M.S.N. [address] [place] [phone] [facility] Referral ID Status Reason Start Date Expiration Date Visits Re quested Visits Authorized [id number] Closed 06/11/2022 06/11/2023 6 6 Reason for Visit * Outpatient (Routine) - Closed Specialty Diagnoses / Procedures Referred By Pamella ann Referred To Contact Diagnoses Dense Breasts, Unspecified Procedures NM Molecular Breast Imaging Laura Santacruz APRN, C.ND[place], M.S.N. [address] [place] [phone] [facility] Referral ID Status Reason Start Date Expiration Date Visits Re quested Visits Authorized [id number] Closed 06/11/2022 06/11/2023 6 6 Encounter Details Date Type Department Care Team (Latest Contact Info) Description 12/25/2022 9:27 AM CDT - 12/25/2022 11:59 PM CDT Hospital Encounter Department of Radiology in [place], [place] 200 [place] [address] Laura Santacruz APRN C.N.P., M.S.N. 200 [place] [address] Density Breast Discharge Disposition: Home or Self Care Social [...] often do you attend chur ch or anabaptist services? Never 02/14/2022 Do you belong to any clubs o r organizations such as rastafari groups, unions, fraternal or athletic groups, or [...] medical care, and heating? Patient declined 02/14/2022 [facility] - Occupational Stress [...] place to sleep or slept in a residential (including now)? No 02/14/2022 Nutrition Answer Date [...] Sex Assigned at Female 06/20/2021 7:53 PM RADIO INSTALLER Gender Identity Female 06/20/2021 7:53 PM RADIO INSTALLER Sexual Orientation Straight 06/20/2021 7: 53 PM RADIO INSTALLER documented as of this encounter Medications at Time of Discharge Medication Sig Dispensed Refills Start Date End Date calcium carb/vit D3/minerals (CALCIUM-VITAMIN D ORAL) Take 1 tablet by mouth daily. 600 mg with D3 0 lisinopriL (PRINIVIL,ZESTRIL) 10 mg tablet Take 1 tablet by mouth daily. 0 11/09/2016 multivitamin tablet Take 1 tablet by mouth daily. 0 08/09/2011 omega 8-bbr-phs-fish oil 1,000 mg (120 mg-180 mg) capsule Take 1 capsule by mouth daily. 0 07/01/2019 vit C/vit E/lutein/min/omega-3 (OCUVITE ORAL) Take 1 tablet by mouth daily. 0 documented as of this encounter Plan of Treatment Not on file documented as of this encounter Procedures Procedure Name Priority Date/Time Associated Diagnosis Comments NM MBI BREAST STUDY RAD - Routine (most inpatients and all outpatients) 12/25/2022 10:58 AM CDT Density Breast documented in this encounter Results * (ABNORMAL) NM Molecular Breast Imaging (12/25/2022 10:58 AM CDT) Anatomical Region Laterality Modality Breast, Nuclear Medicine RST LOS, Breast Imaging ARZ LOS, Breast Imaging FLA LOS, Nuclear Medicine N/A Nuclear Medic ine 12/25/2022 11:1 4 AM CDT Impressions 12/25/2022 11:17 AM CDT Stable probably benign uptake in the left breast. RECOMMENDATION: ??Short-Term Follow-Up 6 Month Recommend follow-up MBI in six months. ASSESSMENT: ??BI-RADS: 3: Probably Benign. Narrative 12/25/2022 11:17 AM CDT EXAM: ??NM MOLECULAR BREAST IMAGING INDICATION: ??MBI follow-up HORMONAL STATUS: ??Post-menopausal, no hormones. COMPARISON: ??Prior exam(s) were available and reviewed for comparison including MBI of 06/08/22. TECHNIQUE: ??Bilateral CC and MLO views obtained on a dual-head CZT gamma camera after radiotracer injection. ?? RADIOISOTOPE DOSE: ??Route: intravenous technetium Tc 99m sestamibi injection (MBI) (Tc-99m SESTAMIBI), 8.6 millicurie. BACKGROUND UPTAKE INTENSITY: ??b. Minimal/Mild FINDINGS: ??Mild intensity uptake in the lateral left breast posterior depth is stable, likely representing post-operative healing. No suspicious radiotracer uptake is present in the right breast. Procedure Note Layne Rushing M.D. - 12/25/2022 EXAM: NM MOLECULAR BREAST IMAGING INDICATION: MBI follow-up HORMONAL STATUS: Post-menopausal, no hormones. COMPARISON: Prior exam(s) were available and reviewed for comparisonincluding MBI of 06/08/22. TECHNIQUE: Bilateral CC and MLO views obtained on a dual-head CZT gammacamera after radiotracer injection. RADIOISOTOPE DOSE: Route: intravenous technetium Tc 99m sestamibiinjection (MBI) (Tc-99m SESTAMIBI), 8.6 millicurie. BACKGROUND UPTAKE INTENSITY: b. Minimal/Mild FINDINGS: Mild intensity uptake in the lateral left breast posteriordepth is stable, likely representing post-operative healing. No suspicious radiotracer uptake ispresent in the right breast. IMPRESSION: Stable probably benign uptake in the left breast. RECOMMENDATION: Short-Term Follow-Up 6 Month Recommend follow-up MBI in six months. ASSESSMENT: BI-RADS: 3: Probably Benign. Laura Santacruz APRN, C.N.P., M.S.N. IMG N M PROCEDURES documented in this encounter Visit Diagnoses Diagnosis Dense Breasts, Unspecified documented in this encounter Administered Medications Inactive Administered Medications - up to 3 most recent administrations Medication Order MAR Action Action Date Dose Rate Site technetium Tc 99m sestamibi injection (MBI) (Tc-99m SESTAMIBI) 8.6 millicurie, intravenous, Once, On Tu12/25/22 at 1015, For 1 dose Given 12/25/2022 9:54 AM CDT 8.6 millicuries Right Antecubital documented in this encounter
--- OUTSIDE RECORDS SUMMARY | 2023-07-26 06:50 | XMS_ITS | Referral Summary ---
Author Name Unknown Organization [facility] Address [address] [place] [address] Care Team Providers Care Patcher Name Role Phone Unavailable Primary Care Provider Unavailabl e Source Comments Patient records contain information from all sites at [facility]. For routine questions regarding patient records, call [phone] during business hours, M-F 8:00 AM - 5:00 PM Central Time. 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 Cancer Breast Personal History; Screening Mammogram Breast Cancer Discharge Disposition: Home or Self Care 06/17/2023 7:37 AM POLYGRAPH TECHNICIAN - 06/17/2023 1:45 PM POLYGRAPH TECHNICIAN Hospital Encounter Department of Radiology in [place], [place] [address] [place] [address] Laura Santacruz APRN, C.N.P., M.S.N. Dense Breasts, Unspecified Discharge Disposition: Home or Self Care from Last 3 Months Allergies No known active allergies Medications Medication [...] 600 mg with D3 0 Active omega 4-qej-icm-fish oil 1,000 mg (120 mg-180 mg) capsule Take 1 capsule by mouth daily. 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 would like information) PPSV23 12/24/2017 RZV (SHINGRIX) 09/26/2018,12/24/2017 SARS-COV-2 (COVID-19) - PFIZ ER (12 YEARS OR OLDER) [id number] 03/21/2023 Tdap 12/24/2017,11/20/2006 influenza vaccine QV(FLUBLOK ) (18 years or older) (PF) 04/07/2019 influenza vaccine quad (FLUZONE/FLUARIX) (6 months and older)(PF) 04/23/2022,04/06/2021,04/30/2018 Social History Tobacco Use Types Packs/Day Years Used Date Smoking Tobacco: Never Passive Smoke Exposure: Never Smokeless Tobacco: Never Tobacco Cessation:Counseling Given: Not Answered Alcohol Use Standard Drinks/Week Comments Yes 0 (1 standard drink = 0.6 oz pure alcohol) maybe one glass of wine or mixed drink a month [facility] [employer] Answer Date Recorded In the past 12 months has e [employer]!, oil, or water [employer] threatened to shut off services in your [...] often do you attend chur ch or zoroastrian services? Never 02/14/2022 Do you belong to any clubs o r organizations such as scientologist groups, unions, fraternal or athletic groups, or [...] medical care, and heating? Patient declined 02/14/2022 [facility] - Occupational [...] your living situation today? I have a [facility] place to live 07/05/2023 Education Answer Date Recorded What is the highest level of school you have completed or the highest degree you have received? Bachelor's degree (e.g., BA, AB, BS) 06/20/2021 Sex and Gender Information Value Date Recorded Sex Assigned at Female 06/20/2021 7:53 PM POLYGRAPH TECHNICIAN Gender Identity Female 06/20/2021 7:53 PM POLYGRAPH TECHNICIAN Sexual Orientation Straight 06/20/2021 7: 53 PM POLYGRAPH TECHNICIAN Last Filed Vital Signs Vital Sign Reading Time Taken Comments Blood Pressure 126/81 07/24/2023 8:35 AM POLYGRAPH TECHNICIAN Pulse 60 07/24/2023 8:35 AM POLYGRAPH TECHNICIAN Temperature 36.4 ??C (97.5 ??F) 09/27/2021 3:19 PM CD T Respiratory Rate 14 08/04/2021 3:36 PM POLYGRAPH TECHNICIAN Oxygen Saturation 99% 08/04/2021 3:36 PM POLYGRAPH TECHNICIAN Inhaled Oxygen Concentration - - Weight 104 kg (228 lb 8.1 oz) 07/24/2023 8:35 AM POLYGRAPH TECHNICIAN Height 162.3 cm (5' 3.9) 07/24/2023 8:35 AM POLYGRAPH TECHNICIAN Body Mass Index 39.35 07/24/2023 8:35 AM POLYGRAPH TECHNICIAN Plan of Treatment Not on file Medical Devices Implanted Type Area Corporate Development Officer Device Identifier Shelf Expiration Date Model / Serial / Lot Clp Hrzn Ti 6 Clp Red - [id number] Implanted:Qty: 1 on 08/04/2021 by Shashi Cheema M.D. at [facility] Hardware e.g. pins/screws/r ods [id number] / / Procedures Procedure Name Priority Date/Time Associated Diagnosis Comments BI BREAST DIAGNOSTIC BILATERAL WITH TOMOSYNTHESIS RAD - Routine (most inpatients and all outpatients) 06/17/2023 2:19 PM POLYGRAPH TECHNICIAN Cancer Breast Personal History Screening Mammogram Breast Cancer NM MBI BREAST STUDY RAD - Routine (most inpatients and all outpatients) 06/17/2023 9:07 AM POLYGRAPH TECHNICIAN Dense Breasts, Unspecified from Last 3 Months Results * BI Breast Diagnostic Bilateral with Tomosynthesis (06/17/2023 2:19 PM POLYGRAPH TECHNICIAN) Anatomical Region Laterality Modality Breast, Breast Imaging RST L OS, Breast Imaging ARZ LOS, Breast Imaging FLA LOS Bilateral Mammography 06/17/2023 2:35 PM POLYGRAPH TECHNICIAN Impressions 06/17/2023 2:51 PM POLYGRAPH TECHNICIAN No mammographic findings of malignancy. RECOMMENDATION: ??Resume Routine Mammogram Annual diagnostic mammography is recommended for the 1st 5 years following breast conservation therapy. ASSESSMENT: ??BI-RADS: 1: Negative. Narrative 06/17/2023 2:51 PM POLYGRAPH TECHNICIAN EXAM: ??BI BREAST DIAGNOSTIC BILATERAL WITH TOMOSYNTHESIS [...] M.S.N. IMG B I PROCEDURES * (ABNORMAL) NM Molecular Breast Imaging (06/17/2023 9:07 AM POLYGRAPH TECHNICIAN) Anatomical Region Laterality Modality Breast, Nuclear Medicine RST LOS, Breast Imaging ARZ LOS, Breast Imaging FLA LOS, Nuclear Medicine N/A Nuclear Medic ine 06/17/2023 9:54 AM POLYGRAPH TECHNICIAN Impressions 06/17/2023 9:58 AM POLYGRAPH TECHNICIAN Stable probably benign uptake in the left breast. RECOMMENDATION: ??Short-Term Follow-Up 12 Month MBI in 12 months. Annual post lumpectomy diagnostic mammogram which will be due May 2023. ASSESSMENT: ??BI-RADS: 3: Probably Benign. Narrative 06/17/2023 9:58 AM POLYGRAPH TECHNICIAN EXAM: ??NM MOLECULAR BREAST IMAGING INDICATION: ??MBI [...] Advance Directives For more information, please contact: [phone] Latest Code Status on File Code Status Date Activated Date Inactivated Comments Full Code 08/04/2021 8:10 AM 08/04/2021 7:57 PM Question Answer Comments Full Code: Not Discussed Due to: Not medically appropriate
--- OUTSIDE RECORDS SUMMARY | 2023-07-26 06:50 | XMS_ITS | Encounter Summary ---
Author Name Unknown Organization [facility] Address [address] [place] [id number] Care Team Providers Care Arts Education Teacher Name Role Phone Unavailable Primary Care Provider Unavailabl e Reason for Referral * Outpatient (Routine) - Closed Specialty Diagnoses / Procedures Referred By Pamella ann Referred To Contact Diagnoses Cancer Breast Personal History Screening Mammogram Breast Cancer Procedures BI Breast Diagnostic Bilateral with Tomosynthesis Laura Santacruz APRN, C.NDevora, M.S.N. [address] [place] [phone] [facility] Referral ID Status Reason Start Date Expiration Date Visits Re quested Visits Authorized [id number] Closed 12/25/2022 12/25/2023 1 1 * Outpatient (Routine) - Authorized Specialty Diagnoses / Procedures Referred By Pamlela ann Referred To Contact Diagnoses Dense Breasts, Unspecified Procedures NM Molecular Breast Imaging Laura Santacruz APRN, C.NDevora, M.S.N. [address] [place] [phone] [facility] Referral ID Status Reason Start Date Expiration Date V isits Requested Visits Authorized [id number] Authorized 12/25/2022 12/25/2023 6 6 * Outpatient (Routine) - Closed Specialty Diagnoses / Procedures Referred By Contac t Referred To Contact Dermatology Diagnoses Cyst Sebaceous Lesion Skin Laura Santacruz APRN, C.N.P., M.S.N. [address] [place] [phone] [facility] Referral ID Status Reason Start Date Expiration Date Visits Re quested Visits Authorized [id number] Closed 12/25/2022 12/25/2023 1 1 * Outpatient (Routine) - Closed Specialty Diagnoses / Procedures Referred By Contac t Referred To Contact Nutrition Diagnoses Body Mass Index 38.0 To 38.9 Adult Laura Santacruz APRN, C.N.P., M.S.N. [address] [place] [phone] [facility] Referral ID Status Reason Start Date Expiration Date Visits Re quested Visits Authorized [id number] Closed 12/25/2022 12/25/2023 1 1 * Outpatient (Routine) - Closed Specialty Diagnoses / Procedures Referred By Contac t Referred To Contact Breast Clinic Laura Santacruz APRN, C.N.P., M.S.N. [address] [place] [phone] [facility] Referral ID Status Reason Start Date Expiration Date Visits Re quested Visits Authorized [id number] Closed 12/25/2022 12/24/2025 1 1 Reason for Visit * Reason Comments Follow-up * Outpatient (Routine) - Closed Specialty Diagnoses / Procedures Referred By Pamella ann Referred To Contact Breast Clinic Laura Santacruz APRN, C.N.P., M.S.N. [address] [place] [phone] [facility] Referral ID Status Reason Start Date Expiration Date Visits Re quested Visits Authorized [id number] Closed 06/11/2022 06/10/2025 1 1 Encounter Details Date Type Department Care Team (Late st Contact Info) Description 12/25/2022 8:45 AM CDT Office Visit Breast Diagnostic Clinic in [place], [place] [address] [place] [phone] Laura Santacruz APRN, C.N.P., M.S.N. [address] [place] [phone] Screening Mammogram Breast Cancer (Primary Dx); Body Mass Index 38.0 To 38.9 Adult; Cyst Sebaceous; Lesion Skin; Density Breast; Cancer Breast Personal History Social History Tobacco Use Types Packs/Day Years [...] often do you attend chur ch or shinto services? Never 02/14/2022 Do you belong to [...] medical care, and heating? Patient declined 02/14/2022 [facility] - Occupational Stress [...] place to sleep or slept in a snf (including now)? No 02/14/2022 Nutrition Answer Date [...] Sex Assigned at Female 06/20/2021 7:53 PM ARABIC TEACHER Gender Identity Female 06/20/2021 7:53 PM ARABIC TEACHER Sexual Orientation Straight 06/20/2021 7: 53 PM ARABIC TEACHER documented as of this encounter Last Filed Vital Signs Vital Sign Reading Time Taken Comments Blood Pressure 127/79 12/25/2022 8:45 AM CDT Pulse 61 12/25/2022 8:45 AM CDT regul ar Temperature - - Respiratory Rate - - Oxygen Saturation - - Inhaled Oxygen Concentration - - Weight 101 kg (222 lb 10.6 oz) 12/25/2022 8:45 A M CDT Height 163 cm (5' 4.17) 12/25/2022 8:45 AM CDT Body Mass Index 38.01 12/25/2022 8:45 AM CDT documented in this encounter Progress Notes * Laura Santacruz, Omaira BEAN, M.S.N. - 12/25/2022 8:45 AM CDT SUBJECTIVE Laura Santacruz, Omaira BEAN, M.S.N. CHIEF COMPLAINT Breast recheck visit History of Present Illness Joleen Raza is a pleasant 61 y.o. female presenting for breast recheck visit for personal historyof left ductal carcinoma in situ. Her oncology history is as follows: Oncology History Cancer Breast Ductal In Situ Left 05/17/2021 Critical Imaging May 17, 2021: Bilateral screening mammogram [...] positive (51-60%). Progesterone receptor positive (51-60%). 06/22/2021 Critical Imaging MRI of the bilateral breasts demonstrated [...] panel and the Colorectal Cancer panel through [facility]. 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 08/04/2021 Surgery and Procedures Left breast seed localized lumpectomy was performed by Dr. Shashi Cheema. PATHOLOGY: A. Breast, left, lumpectomy: Ductal carcinoma in situ (DCIS), high nuclear grade, involving an area 12 x 9 x 8 mm. All margins, [id number] of the anterior and superior margins (parts [...] 1-2 weeks. Referral to Radiation Oncology in [place] to be scheduled in mid August after the patient returns from her planned trip to [facility]. 08/17/2021 Other Breast Clinic appointment with Dr. Domi Alvarado who discussed the role for adjuvant endocrine therapy in ER positive DCIS. Plan to begin exemestane after radiation therapy. Patient later decided to forego endocrine therapy due to concerns regarding side effects. 09/20/2021 - 10/03/2021 Radiation Therapy Radiation Therapy Treatment Details (09/20/2021 - 10/03/2021) Site: Left Breast Technique: 3D PLASTIC MOLDING OPERATOR Goal: Curative Planned Treatment Start Date: 09/20/2021 Dose: 2600 cGy in 5 fractions, 1000 cGy boost to the lumpectomy cavity in 4 fractions for a total of 3600 in 9 fractions Interval history Ms. Raza was last seen in the breast Center in May 2022 with reassuring clinical exam. She had an MBI performed 06/08/2022 revealing no abnormal radiotracer uptake in the right breast and mild uptake in the left outer, far posterior depth breast. A bilateral diagnostic mammogram was then perfo rmed,revealing interval postsurgical changes of the lumpectomy in the left outer, posterior depth breast, and no suspicious findings in the right breast. A short-term follow-up MRI has been recommended, and is scheduled for after our visit today. Today, Ms. Raza denies breast pain, lumps, and nipple discharge. Underneath the left breast in the inframammary fold she reports a pimple that has been present since July, unchanged in size. She has no concern of redness rashes pain. Her breast has been darker since radiation. She elected not to start endocrine therapy due to concerns regarding potential side effects, she remains comfortable with this decision. She eats a well-balanced vegetarian diet. She desires to lose weight, and has tried intermittent fasting. She is working on increasing her movement and enjoys exercise videos and walking. She reports rare alcohol intake (approximally 3 times per year). She is a nonsmoker. Ms. Raza reports that she is established with a local primary care provider for her general medical concerns. FAMILY HISTORY Cancer-related family history includes Breast cancer in her mother. REVIEW OF SYSTEMS Ms. Raza denies active constitutional findings of new persistent headaches, abdominal pains, unintended weight loss, persistent cough, fevers, chills, night sweats, and bone pain. OBJECTIVE LMP 02/12/2014 (Exact Date) Vitals: 12/25/22 0845 BP: 127/79 Pulse: 61 General: Well-appearing female. No acute distress. Lymph: No cervical, supraclavicular, infraclavicular, or axillary lymphadenopathy palpable. Extremities: Good range of motion of upper extremities bilaterally. No signs of swelling or edema of upper extremities. Breasts: Examined sitting and supine. Symmetric. Well-healed lumpectomy scar in the lower inner quadrant of the left breast. Left breast inframammary fold there is a superficial nodule with a pore occluded, having the appearance of an inclusion cyst. Nipples everted without lesion or discharge bilaterally. Palpation reveals no dominant or discrete mass. No focal pain or tenderness. Wt Readings from Last 6 Encounters: 06/11/22 95.6 kg 02/15/22 94.3 kg 09/27/21 96.5 kg 09/25/21 95.9 kg 09/22/21 95.8 kg 09/13/21 94.9 kg ASSESSMENT / PLAN #1 Cancer Breast Ductal In Situ Left #2 Short interval follow-up MBI #3 Occlusion cyst #4 Nutrition consultation I discussed with Mrs. Raza that her clinical breast exam reveals no suspicious findings. The leftbreast skin concern has the appearance a clogged pore or inclusion cyst. We discussed referral to dermatology for skin check. Encouraged in healthy lifestyle choices, she is interested in nutrition consultation and this was ordered for her. Recommend clinical breast exam every 6 months for first 3-5 years following cancer diagnosis and treatment and annually thereafter. Ms. Raza questions and concerns addressed. Addendum: After our visit today the MBI returned with stable probably benign uptake in the left breast and recommendation for short interval follow up in 6 months with MBI. Portal message sent to patient. Breast Cancer Survivorship Clinic follow-up recommendations: Follow up with Breast Clinic. Due in 6 months, ordered. Perform regular breast/chest wall examination. Report any breast/chest wall changes and/or persistent concerning symptoms. Clinical breast exam every 6 months for 3-5 years following breast cancer diagnosis and treatment, then annually thereafter. Annual bilateral diagnostic mammogram. Due May 2023. Nutrition consultation. Dermatology consultation. Short interval follow-up with MBI in 6 months. Laura Santacruz APRN, C.N.P., M.S.N. PATIENT EDUCATION Ready to learn, no apparent learning barriers were identified; learning preferences include listening. Explained diagnosis and treatment plan; patient expressed understanding of the content. documented in this encounter Plan of Treatment Scheduled Referrals Name Type Priority Associated Diagnoses Order Schedule Breast Clinic office visit (clinic) Outpatient Referral Routine Expected: 06/26/2023 (Approximate), Expires: 12/26/2023 Nutrition - Oncology medical nutrition therapy consult (clinic) Outpatient Referral Routine Body Mass Index 38.0 To 38.9 Adult Expected: 12/25/2022 (Approximate), Expires: 03/27/2024 Dermatology - Skin check consult (clinic) Outpatient Referral Routine Cyst Sebaceous Lesion Skin Expected: 12/25/2022 (Approximate), Expires: 03/27/2024 documented as of this encounter Results * BI Breast Diagnostic Bilateral with Tomosynthesis (06/17/2023 2:19 PM ARABIC TEACHER) Anatomical Region Laterality Modality Breast, Breast Imaging RST L OS, Breast Imaging ARZ LOS, Breast Imaging FLA LOS Bilateral Mammography 06/17/2023 2:35 PM ARABIC TEACHER Impressions 06/17/2023 2:51 PM ARABIC TEACHER No mammographic findings of malignancy. RECOMMENDATION: ??Resume Routine Mammogram Annual diagnostic mammography is recommended for the 1st 5 years following breast conservation therapy. ASSESSMENT: ??BI-RADS: 1: Negative. Narrative 06/17/2023 2:51 PM ARABIC TEACHER EXAM: ??BI BREAST DIAGNOSTIC BILATERAL WITH TOMOSYNTHESIS [...] NM Molecular Breast Imaging (06/17/2023 9:07 AM ARABIC TEACHER) Anatomical Region Laterality Modality Breast, Nuclear Medicine RST LOS, Breast Imaging ARZ LOS, Breast Imaging FLA LOS, Nuclear Medicine N/A Nuclear Medic ine 06/17/2023 9:54 AM ARABIC TEACHER Impressions 06/17/2023 9:58 AM ARABIC TEACHER Stable probably benign uptake in the left breast. RECOMMENDATION: ??Short-Term Follow-Up 12 Month MBI in 12 months. Annual post lumpectomy diagnostic mammogram which will be due May 2023. ASSESSMENT: ??BI-RADS: 3: Probably Benign. Narrative 06/17/2023 9:58 AM ARABIC TEACHER EXAM: ??NM MOLECULAR BREAST IMAGING INDICATION: ??MBI [...] ASSESSMENT: BI-RADS: 3: Probably Benign. Laura Santacruz APRN C.N.P., M.S.N. IMG N M PROCEDURES documented in this encounter Visit Diagnoses Diagnosis Screening Mammogram Breast Cancer- Primary Body Mass Index 38.0 To 38.9 Adult Cyst Sebaceous Lesion Skin Dense Breasts, Unspecified Cancer Breast Personal History Dense Breasts, Unspecified Cancer Breast Personal History Screening Mammogram Breast Cancer documented in this encounter
--- OUTSIDE RECORDS SUMMARY | 2023-07-26 06:50 | XMS_ITS | Encounter Summary ---
Author Name Unknown Organization [facility] Address [address] [place] [id number] Care Team Providers Care Program Services Planner Name Role Phone Unavailable Primary Care Provider Unavailabl e Reason for Visit * Reason Onset Date Comments Testing 04/08/2023 Encounter Details Date Type Department Care Team (Late st Contact Info) Description 04/08/2023 Clinical Communication Breast Diagnostic Clinic in [place], [place] [address] [place] [phone] Laura Santacruz, GENEVA, C.N.P., M.S.N. [address] [place] [phone] Testing Social History Tobacco Use Types Packs/Day Years [...] often do you attend chur ch or episcopal services? Never 02/14/2022 Do you belong to any clubs o r organizations such as protestant groups, unions, fraternal or athletic groups, or [...] medical care, and heating? Patient declined 02/14/2022 [facility] - Occupational Stress Questionnaire Answer Date Recorded [...] place to sleep or slept in a intermediate (including now)? No 02/14/2022 Nutrition Answer Date [...] Sex Assigned at Female 06/20/2021 7:53 PM CONCRETE BLOCK MOLDER Gender Identity Female 06/20/2021 7:53 PM CONCRETE BLOCK MOLDER Sexual Orientation Straight 06/20/2021 7: 53 PM CONCRETE BLOCK MOLDER documented as of this encounter Miscellaneous Notes * Telephone Encounter - Ludy Champion - 04/08/2023 12:38 PM CDT Laura, Your last note states: Breast Cancer Survivorship Clinic follow-up recommendations: Follow [...] interval follow-up with MBI in 6 months. Pt states her pink card doesn't mention MBI and she just had this. She asked for me to verify if needed or not? Please advise. Ludy documented in this encounter Plan of Treatment Not on file documented as of this encounter Visit Diagnoses Not on filedocumented in this encounter
--- OUTSIDE RECORDS SUMMARY | 2023-07-26 06:50 | XMS_ITS | Encounter Summary ---
Author Name Unknown Organization [facility] Address [address] [place] [id number] Care Team Providers Care Computator Name Role Phone Unavailable Primary Care Provider Unavailabl e Reason for Referral * Outpatient (Routine) - Authorized Specialty Diagnoses / Procedures Referred By Pamella ann Referred To Contact Breast Clinic Merlyn Sauceda APRN, CNS [address] [place] [phone] [facility] Referral ID Status Reason Start Date Expiration Date V isits Requested Visits Authorized [id number] Authorized 07/24/2023 01/22/2025 1 1 LABORER Reason for Visit * Reason Comments Established * Outpatient (Routine) - Closed Specialty Diagnoses / Procedures Referred By Pamella ann Referred To Contact Breast Clinic Laura Santacruz APRN, C.N.P., M.S.N. [address] [place] [phone] [facility] Referral ID Status Reason Start Date Expiration Date Visits Re quested Visits Authorized [id number] Closed 12/25/2022 12/24/2025 1 1 Encounter Details Date Type Department Care Team ([facility] st Contact Info) Description 07/24/2023 8:45 AM FARM LABORER Office Visit Breast Diagnostic Clinic in [place], [place] [address] [place] [phone] Merlyn Sauceda, PHARMACEUTICAL PROCESS ENGINEER, ENCAPSULATOR [address] [place] [phone] Cancer Breast Ductal In Situ Left (Primary Dx); Radiation Therapy Personal History; Cancer Breast Family History; Body Mass Index 39.0 To 39.9 Adult Social History Tobacco Use Types Packs/Day Years Used Date Smoking Tobacco: Never Passive Smoke Exposure: Never Smokeless Tobacco: Never Alcohol Use Standard Drinks/Week Comments Yes 0 (1 standard drink = 0.6 oz pure alcohol) maybe one glass of wine or mixed drink a month [facility] [employer] Answer Date Recorded In the past 12 months has e [employer], gas, oil, or water [employer] threatened to shut off services in your [...] often do you attend chur ch or denominational services? Never 02/14/2022 Do you belong to any clubs o r organizations such as denominational groups, unions, fraternal or athletic groups, or [...] medical care, and heating? Patient declined 02/14/2022 [facility] - Occupational Stress [...] Sex Assigned at Female 06/20/2021 7:53 PM FARM LABORER Gender Identity Female 06/20/2021 7:53 PM FARM LABORER Sexual Orientation Straight 06/20/2021 7: 53 PM FARM LABORER documented as of this encounter Last Filed Vital Signs Vital Sign Reading Time Taken Comments Blood Pressure 126/81 07/24/2023 8:35 AM FARM LABORER Pulse 60 07/24/2023 8:35 AM FARM LABORER Temperature - - Respiratory Rate - - Oxygen Saturation - - Inhaled Oxygen Concentration - - Weight 104 kg (228 lb 8.1 oz) 07/24/2023 8:35 AM FARM LABORER Height 162.3 cm (5' 3.9) 07/24/2023 8:35 AM FARM LABORER Body Mass Index 39.35 07/24/2023 8:35 AM FARM LABORER documented in this encounter Progress Notes * Merlyn Sauceda, PHARMACEUTICAL PROCESS ENGINEER, ENCAPSULATOR - 07/24/2023 8:45 AM CST CHIEF COMPLAINT / REASON FOR VISIT History of left breast cancer HISTORY OF PRESENT ILLNESS Joleen Raza is a 62 y.o. female from [place], [place]. Her breast cancer history is as follows: Oncology History Cancer [...] panel and the Colorectal Cancer panel through [facility]. 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 08/04/2021 Surgery and Procedures Left breast seed localized lumpectomy was performed by Dr. Shashi Cheema. PATHOLOGY: A. Breast, left, lumpectomy: Ductal carcinoma in situ (DCIS), high nuclear grade, involving an area 12 x 9 x 8 mm. All margins, [id number] of the anterior and superior margins (parts [...] 1-2 weeks. Referral to Radiation Oncology in [place] to be scheduled in mid August after the patient returns from her planned trip to [facility]. 08/17/2021 Other Breast Clinic appointment with Dr. Domi Alvarado who discussed the role for adjuvant endocrine therapy in ER positive DCIS. Plan to begin exemestane after radiation therapy. Patient later decided to forego endocrine therapy due to concerns regarding side effects. 09/20/2021 - 10/03/2021 Radiation Therapy Radiation Therapy Treatment Details (09/20/2021 - 10/03/2021) Site: Left Breast Technique: 3D PRODUCT INSPECTION COORDINATOR Goal: Curative Planned Treatment Start Date: 09/20/2021 Dose: 2600 cGy in 5 fractions, 1000 cGy boost to the lumpectomy cavity in 4 fractions for a total of 3600 in 9 fractions Mrs. Raaz was last seen in the [facility] by my colleague, Laura Santacruz APRN, CNP, on December 25, 2022. At that time she had a nodule at the left inframammary fold which was biopsied in Dermatology and found to be in inclusion cyst. Additionally, she had a follow-up MBI (molecular breast imaging) at that time due to some uptake in the left breast. The uptake was felt to be stable and it was recommended that she have a follow-up MBI (molecular breast imaging) in six months. Interval history: Mrs. Raza reports that overall her general health has been about the same. She is somewhat frustrated, as her weight has continued to increase. She notes that she was seen by a tool radial drill press set up operator here [facility] this past summer. She has not been exercising regularly. She denies any new constitutional symptoms such as unexplained weight loss, fevers, night sweats, bone pain, persistent cough, abdominal pain, or headaches. She notes no new breast concerns. Wt Readings from Last 6 Encounters: 07/24/23 104 kg 12/25/22 101 kg 06/11/22 95.6 kg 02/15/22 94.3 kg 09/27/21 96.5 kg 09/25/21 95.9 kg SOCIAL Mrs. Raza is with two adult daughters. 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 Nonsmoker. Rare alcohol use. OBJECTIVE PHYSICAL EXAM General: Pleasant woman in no acute distress. BMI 39.3. Lymph: No palpable submandibular, submental, cervical, supraclavicular, infraclavicular, or axillary adenopathy. Skin: Warm and dry with normal turgor. Extremities: Good range of motion of both shoulders. No overt signs of upper extremity lymphedema. Breasts: Breasts are fairly symmetric. Nipples are everted bilaterally. No nipple discharge or lesions noted. Overlying skin is unremarkable. There is a well-healed scar at the left inframammary foldfrom previous dermatology biopsy. There is also a scar in the inferolateral left breast from lumpectomy. Palpation reveals no dominant masses or nodularity in either breast. ASSESSMENT/PLAN #1 Cancer Breast Ductal In Situ Left #2 Radiation Therapy Personal History #3 Cancer Breast Family History #4 Body Mass Index 39.0 To 39.9 Adult Clinical examination today was satisfactory. We reviewed the results of her mammogram and MBI (molecular breast imaging) the performed on June 17, 2023. The bilateral diagnostic mammogram revealed heterogeneously dense breast tissue with no mammographic findings for malignancy. MBI (molecular breast imaging) showed stable probably benign uptake in the left breast. It is recommended that she have a repeat MBI (molecular breast imaging) in one year. I spent a good deal of time today discussing nutrition, exercise, and weight loss with Mrs. Raza . I have recommended that she [facility] meet with a physical therapist there to talk about movement, exercise, and weight loss. Since it is somewhat of a distance for her to get here, we could schedule that for when she returns this summer for her follow-up. She will consider this and let me know if she wants me to schedule that consult. BREAST CLINIC RECOMMENDATIONS: 1. Monthly breast observation and palpation. Please report any changes promptly. 2. Clinical breast/chest wall examination every six months for 3-5 years and then annually. Will plan to return in December 2023. 3. Breast imaging: Annual bilateral diagnostic mammogram, due May 2024. Follow-up MBI (molecular breast imaging), May 2024. 4. Recommend consultation with physical therapist in the [facility]. PATIENT EDUCATION Ready to learn, no apparent learning barriers were identified; learning preferences include listening. Explained diagnosis and treatment plan; patient expressed understanding of the content. LABORER documented in this encounter Plan of Treatment Scheduled Referrals Name Type Priority Associated Diagnoses Orde r Schedule Breast Clinic office visit (clinic) Outpatient Referral Routine Expected: 01/22/2024 (Approximate), Expires: 10/22/2024 documented as of this encounter Visit Diagnoses Diagnosis Cancer Breast Ductal In Situ Left- Primary Radiation Therapy Personal History Cancer Breast Family History Body Mass Index 39.0 To 39.9 Adult documented in this encounter
--- OUTSIDE RECORDS SUMMARY | 2023-07-26 06:50 | XMS_ITS | Encounter Summary ---
Author Name Unknown Organization [facility] Address [address] [place] [id number] Care Team Providers Care Hospitality Coordinator Name Role Phone Unavailable Primary Care Provider Unavailabl e Reason for Visit * Outpatient (Routine) - Closed Specialty Diagnoses / Procedures Referred By Pamella ann Referred To Contact Nutrition Diagnoses Body Mass Index 38.0 To 38.9 Adult Laura Santacruz APRN C.N.P., M.S.N. [address] [place] [phone] [facility] Referral ID Status Reason Start Date Expiration Date Visits Re quested Visits Authorized [id number] Closed 12/25/2022 12/25/2023 1 1 Encounter Details Date Type Department Care Team (Late st Contact Info) Description 01/15/2023 1:00 PM CDT Telemedicine Department of Nutrition and Diabetes Education in [place], [place] [address] [place] [phone] Laura Santacruz APRN C.N.PSukhjinder, M.S.N. [address] [place] [phone] Lulu Spears M.S., RDN, LD [address] [place] [phone] Body Mass Index 38.0 To 38.9 Adult Social History Tobacco Use Types Packs/Day [...] 02/14/2022 How often do you attend chur or hindu services? Never 02/14/2022 Do you belong to any clubs o r organizations such as muslim groups, unions, fraternal or athletic groups, or [...] medical care, and heating? Patient declined 02/14/2022 [facility] - Occupational Stress [...] place to sleep or slept in a penitentiary (including now)? No 02/14/2022 Nutrition Answer Date [...] Sex Assigned at Female 06/20/2021 7:53 PM DICE TABLE PERSON Gender Identity Female 06/20/2021 7:53 PM DICE TABLE PERSON Sexual Orientation Straight 06/20/2021 7: 53 PM DICE TABLE PERSON documented as of this encounter Last Filed Vital Signs Vital Sign Reading Time Taken Comments Blood Pressure - - Pulse - - Temperature - - Respiratory Rate - - Oxygen Saturation - - Inhaled Oxygen Concentration - - Weight - - Height 163 cm (5' 4.17) 01/15/2023 1:44 PM CDT Body Mass Index - - documented in this encounter Progress Notes * Lulu Spears M.S., RDN, LD - 01/15/2023 1:00 PM CDT CHIEF COMPLAINT/REASON FOR VISIT Nutrition-Weight Management Consult and healthy diet recommendations with a history of breast cancer. Met with patient via video visit. ASSESSMENT Food/Nutrition Related History Dieting experience: She has followed the Mediterranean diet in the past. She follows a pescetarian diet currently. She has been intermittent fasting for the past 1.5-2 weeks. Eating environment: Patient and spouse have been eating out more frequently since the COVID-19 pandemic. She eats out 3-5 meals per week. Food and beverage intake Breakfast: Cup of yogurt with berries and banana and granola Morning Snack: Handful of nuts Noon Meal: Salad with variety of veggies, plus seeds, sometimes feta cheese and olives, dressing. Sometimes adds dried fruit and nuts. Afternoon Snack: Beverage - lemonade, coconut water, or pop, something like that. Evening meal: Veggie chili or soup or tacos or pasta or perogies, etc. - it varies a lot. Evening Snack: None Beverages: water iced tea, oat milk, mountain dew (intermittently will have 1 per day for a week) Alcohol intake: rare Supplement Intake: multivitamin, fish oil, AREDS, calcium, vitamin B complex Physical activity: Joleen Raza reports walking her dog for a minimum of half of a mile. On a typical day, she walks 2 miles. Weight History Ht Readings from Last 1 Encounters: 12/25/22 163 cm Wt Readings from Last 1 Encounters: 12/25/22 101 kg BMI Readings from Last 1 Encounters: 12/25/22 38.01 kg/m?? Reported weight of 223 lbs - (101 kg) Estimation of Nutritional Needs Calories: 1650 calories per day (HB Basal) NUTRITION DIAGNOSIS Obesity related to imbalance between energy intake and energy expenditure as evidenced by patient'sintake, activity report, and BMI of 38.01 kg/m^2 Nutrition Prescription/Recommendation We discussed the following weight management strategies: Consistently consume 3 well-balanced mealseach day, aim not to skip meals, aim for home prepared meals, be mindful about snacking habits and portion sizes, read nutrition labels, limit foods and beverages with a high fat/added sugar content,follow a calorie deficit diet, increase planned physical activity as able, maintain hydration status. INTERVENTION Education: Weight Control, myplate method MONITORING AND EVALUATION: Nutrition parameter to monitor: Weight Desired Outcome: establish healthy lifestyle changes; gradual weight reduction Patient Goal(s): 1. Follow myplate method at meals 2. Consume 3 balanced meals per day 3. Increase resistance exercise in routine 4. Decrease eating out frequency to twice weekly FOLLOW UP PLAN: As needed Time spent with patient (minutes): 35 documented in this encounter Plan of Treatment Not on file documented as of this encounter Visit Diagnoses Diagnosis Body Mass Index 38.0 To 38.9 Adult documented in this encounter
--- OUTSIDE RECORDS SUMMARY | 2023-07-26 06:50 | XMS_ITS | Clinical Summary ---
Author Name Unknown Organization [facility] Address [place], [place] [address] Care Team Providers Care Lozenge Dough Mixer Name Role Phone Pcp, No Primary Care Provider Unavailabl e Allergies No known active allergies Medications Medication Sig Dispensed Refills Start Date End Date Status calcium 600 mg capsule Take 1 capsule by mouth 2 times daily with meals. Also has vitamin D 250 in it 0 08/09/2011 Active multivitamin (MVI) tablet Take 1 tablet by mouth once daily. 0 08/09/2011 Active Cholecalciferol, Vitamin D3, (VITAMIN D) 5,000 unit TabIndications:Annua l physical exam Take 1 tablet by mouth once daily. 100 tablet 0 08/30/2012 Active omega-3 fatty acids-vitamin E (FISH OIL) 1,000 mg capIndications:Annua l physical exam Take by mouth. 0 08/30/2012 Activ e b complex vitamins (VITAMINS B COMPLEX) capsule Take 1 capsule by mouth twice a week. 0 10/29/2014 Active lisinopril (PRINIVIL; ZESTRIL) 10 mg tabletIndications:HT N (hypertension) TAKE 1 TABLET BY MOUTH ONCE DAILY. 30 tablet 0 11/09/2016 Active Active Problems Problem Noted Date Diagnosed Date Vitamin D deficiency 10/06/2013 Screen for colon cancer 05/22/2011 Overview: Colonoscopy 05/2011 normal repeat in 10 years HTN (hypertension) 03/29/2011 Migraine NOS/not intrcbl, intermittent 09/29/201 1 Immunizations Name Administration Dates Next Due Influenza, IIV3 (Age >=3 years) 04/11/2011 Influenza, IIV4 04/08/2014 Tdap 11/20/2006 Family History Medical History Relation Name Comments Hyperlipidemia Father 80 Hypertension Father 80 Other Father 80 Gout Alcohol/Drug Maternal Grandfather Cancer-breast Mother , jeniffer cesar cancer, age 54 Diabetes Other cousins Diabetes Paternal Grandmother as well as first cousins, same side of family Good Health Sister 3 Other Sister 4 gall bladder is sues and hysterectomy Relation Name Status Comments Father 80 Alive Maternal Grandfather Mother Other Paternal Grandmother Sister 1 Alive Sister 2 Alive Sister 3 Sister 4 Social History Tobacco Use Types Packs/Day Years Used Date Smoking Tobacco: Never Smokeless Tobacco: Never Tobacco Cessation:Counseling Given: Yes Alcohol Use Standard Drinks/Week Comments Yes 0 (1 standard drink = 0.6 oz pur e alcohol) Rare Sex and Gender Information Value Date Recorded Sex Assigned at Not on file Gender Identity Not on file Sexual Orientation Not on file Obstetrics History Para Term AB IAB SAB Ectopic Multiple Livin g Live Births 2 2 2 Date Outcome GA Total Labor Labor/2nd/3rd Weight Sex Delivery Anes PTL Marcia A1 A5 Name Cl in Para Para Last Filed Vital Signs Vital Sign Reading Time Taken Comments Blood Pressure 157/93 11/07/2015 12:33 PM CDT Pulse 76 11/07/2015 12:33 PM CDT Temperature 36.6 ??C (97.9 ??F) 02/17/2015 5:34 PM CD T Respiratory Rate 20 05/24/2008 8:30 AM WAIST FITTER Oxygen Saturation 96% 11/01/2015 8:35 AM CDT Inhaled Oxygen Concentration - - Weight 97.8 kg (215 lb 9.6 oz) 11/01/2015 8:35 A M CDT Height 163.8 cm (5' 4.5) 11/01/2015 8:35 AM CDT Body Mass Index 36.44 11/01/2015 8:35 AM CDT Plan of Treatment Health Maintenance Due Date Last Done Comments COVID-19 vaccine series (#1) 06/29/1961 HIV for age 15-65 12/29/1975 Hepatitis C screening for age 18-79 1978 Zoster (shingles) series for age 50+ (1 of 2) 2010 BMI (ht and wt on same day) for age 18+ 10/31/2016 11/01/2015 Depression screening for age 12+ 10/31/2016 11/01/2015 Tetanus booster 11/20/2016 11/20/2006 Mammogram for age 45-75 04/05/2017 04/05/20 16, 04/06/2015, 04/04/2015, Additional history exists Lipids for age 45-75 10/06/2018 10/06/2013, 09/01/2012, 03/29/2011, Additional history exists Colonoscopy through age 75 05/22/2021 05/22/2011, Pap test for age 21-65 04/07/2022 9, 04/07/2019, 11/01/2015, Additional history exists Influenza for age 50-64 03/01/2023 04/08/2014, 04/11 Tdap Completed 11/20/2006 Pneumococcal series for age 6-64 Aged Out No longer eligible based on patient's age to complete this topic Care Teams Lozenge Dough Mixer Relationship Specialty Start Date End Date Pcp, No . PCP - General 06/06/18
--- OUTSIDE RECORDS SUMMARY | 2023-07-26 06:50 | XMS_ITS | Encounter Summary ---
Author Name Unknown Organization [facility] Address [address] [place] [id number] Care Team Providers Care Health And Safety Tech Name Role Phone Unavailable Primary Care Provider Unavailabl e Reason for Referral * Outpatient (Routine) - Closed Specialty Diagnoses / Procedures Referred By Pamella ann Referred To Contact Diagnoses Cancer Breast Personal History Screening Mammogram Breast Cancer Procedures BI Breast Diagnostic Bilateral with Tomosynthesis Laura Santacruz APRN, C.N.P., M.S.N. [address] [place] [phone] [facility] Referral ID Status Reason Start Date Expiration Date Visits Re quested Visits Authorized [id number] Closed 12/25/2022 12/25/2023 1 1 RANCE HEALTHCARE REPRESENTATIVE Reason for Visit * Outpatient (Routine) - Closed Specialty Diagnoses / Procedures Referred By Pamella ann Referred To Contact Diagnoses Cancer Breast Personal History Screening Mammogram Breast Cancer Procedures BI Breast Diagnostic Bilateral with Tomosynthesis Laura Santacruz APRN, C.NDevora, M.S.N. [address] [place] [phone] [facility] Referral ID Status Reason Start Date Expiration Date Visits Re quested Visits Authorized [id number] Closed 12/25/2022 12/25/2023 1 1 Encounter Details Date Type Department Care Team (Latest Contact Info) Description 06/17/2023 1:46 PM INSURANCE HEALTHCARE REPRESENTATIVE - 06/17/2023 11:59 PM INSURANCE HEALTHCARE REPRESENTATIVE Hospital Encounter Department of Radiology in [place], [place] 200 [place] [phone] Laura Santacruz APRN, C.N.P., M.S.N. 200 [place] [phone] Cancer Breast Personal History; Screening Mammogram Breast Cancer Discharge Disposition: Home or Self Care Social [...] often do you attend chur ch or confucianism services? Never 02/14/2022 Do you belong to any clubs o r organizations such as congregational groups, unions, fraternal or athletic groups, or [...] Sex Assigned at Female 06/20/2021 7:53 PM INSURANCE HEALTHCARE REPRESENTATIVE Gender Identity Female 06/20/2021 7:53 PM INSURANCE HEALTHCARE REPRESENTATIVE Sexual Orientation Straight 06/20/2021 7: 53 PM INSURANCE HEALTHCARE REPRESENTATIVE documented as of this encounter Medications at Time of Discharge Medication Sig Dispensed Refills Start Date End Date calcium carb/vit D3/minerals (CALCIUM-VITAMIN D ORAL) Take 1 tablet by mouth daily. 600 mg with D3 0 lisinopriL (PRINIVIL,ZESTRIL) 10 mg tablet Take 1 tablet by mouth daily. 0 11/09/2016 multivitamin tablet Take 1 tablet by mouth daily. 0 08/09/2011 omega 5-ljh-vqk-fish oil 1,000 mg (120 mg-180 mg) capsule [...] inpatients and all outpatients) 06/17/2023 2:19 PM INSURANCE HEALTHCARE REPRESENTATIVE Cancer Breast Personal History Screening Mammogram Breast Cancer documented in this encounter Results * BI Breast Diagnostic Bilateral with Tomosynthesis (06/17/2023 2:19 PM INSURANCE HEALTHCARE REPRESENTATIVE) Anatomical Region Laterality Modality Breast, Breast Imaging RST L OS, Breast Imaging ARZ LOS, Breast Imaging FLA LOS Bilateral Mammography 06/17/2023 2:35 PM INSURANCE HEALTHCARE REPRESENTATIVE Impressions 06/17/2023 2:51 PM INSURANCE HEALTHCARE REPRESENTATIVE No mammographic findings of malignancy. RECOMMENDATION: ??Resume Routine Mammogram Annual diagnostic mammography is recommended for the 1st 5 years following breast conservation therapy. ASSESSMENT: ??BI-RADS: 1: Negative. Narrative 06/17/2023 2:51 PM INSURANCE HEALTHCARE REPRESENTATIVE EXAM: ??BI BREAST DIAGNOSTIC BILATERAL WITH TOMOSYNTHESIS [...] therapy. ASSESSMENT: BI-RADS: 1: Negative. Laura Santacruz APRN C.N.P., M.S.N. IMG B I PROCEDURES documented in this encounter Visit Diagnoses Diagnosis Cancer Breast Personal History Screening Mammogram Breast Cancer documented in this encounter
--- OUTSIDE RECORDS SUMMARY | 2023-07-26 06:50 | XMS_ITS ---
Author Name Unknown Organization [facility] Address [address] [place] [address] Care Team Providers Care Ticketer Name Role Phone Unavailable Unavailable Unavailable Surgery Details Not on file Complications Check Surgery Details section. Procedure Estimated Blood Loss Check Surgery Details section. Procedure Findings Check Surgery Details section. Procedure Specimens Taken Check Surgery Details section.
--- OUTSIDE RECORDS SUMMARY | 2023-07-26 06:50 | XMS_ITS | Encounter Summary ---
Author Name Unknown Organization [facility] Address [address] [place] [address] Care Team Providers Care Media Buyer Name Role Phone Unavailable Primary Care Provider Unavailabl e Encounter Details Date Type Department Care Team (Late st Contact Info) Description 01/17/2023 Ancillary Procedure Department of Dermatology Social History Tobacco Use Types Packs/Day Years [...] often do you attend chur ch or christianity services? Never 02/14/2022 Do you belong to any clubs o r organizations such as taoism groups, unions, fraternal or athletic groups, or [...] medical care, and heating? Patient declined 02/14/2022 [facility] Occupat ional [facility] - Occupational Stress Questionnaire Answer [...] or rent on time? Patient refused 02/15/20 22 In the last 12 months, how many places have you lived? 1 02/14/2022 In the last 12 months, was t here a time when you did not have a steady place to sleep or slept in a custodial (including now)? No 02/14/2022 Nutrition Answer Date [...] Sex Assigned at Female 06/20/2021 7:53 PM GARAGE DOOR TECHNICIAN Gender Identity Female 06/20/2021 7:53 PM GARAGE DOOR TECHNICIAN Sexual Orientation Straight 06/20/2021 7: 53 PM GARAGE DOOR TECHNICIAN documented as of this encounter Plan of Treatment Not on file documented as of this encounter Procedures Procedure Name Priority Date/Time Associated Diagnosis Comments DERMATOLOGY IMAGE EXAM Routine 01/17/2023 12:00 AM CDT documented in this encounter Results * Breast(s) Biopsy-Dermatology Image Exam (01/17/2023 12:00 AM CDT) Narrative [facility] - 01/17/2023 4:04 PM CDT This order has been created and auto-finalized to support the import of images acquired without order. The clinical documentation to support these images can be found on the encounter that produced images. Provider Not In System IMG NON RAD IMAGI NG PROCEDURES [facility] NA documented in this encounter Visit Diagnoses Not on filedocumented in this encounter
--- OUTSIDE RECORDS SUMMARY | 2023-07-26 06:50 | XMS_ITS | Encounter Summary ---
Author Name Unknown Organization [facility] Address [address] [place] [address] Care Team Providers Care Nurse Name Role Phone Unavailable Primary Care Provider Unavailabl e Reason for Visit * Outpatient (Routine) - Closed Specialty Diagnoses / Procedures Referred By Pamella ann Referred To Contact Dermatology Diagnoses Cyst Sebaceous Lesion Skin Laura Santacruz, GENEVA, C.N.P., M.S.N. [address] [place] [phone] [facility] Referral ID Status Reason Start Date Expiration Date Visits Re quested Visits Authorized [id number] Closed 12/25/2022 12/25/2023 1 1 Encounter Details Date Type Department Care Team (Latest Contact Info) Description 01/17/2023 10:40 AM CDT Comprehensive Visit Department of Dermatology in [place], [place] [address] [place] [phone] Maxx Mcintyre M.D. [address] [place] [phone] Alicia Vick M.D. [address] [place] [phone] Screening Examination Skin Cancer (Primary Dx); Cyst Epidermal; Lesion Skin; Dermatoheliosis; Nevi Multiple; Angioma Norris; Keratosis Seborrheic; Keratosis Seborrheic Inflamed; Tumor Skin Uncertain Behavior Discharge Disposition: Home or Self Care Social [...] How often do you attend chur or anabaptism services? Never 02/14/2022 Do you belong to [...] medical care, and heating? Patient declined 02/14/2022 [facility] of Occupat ional Health - Occupational Stress [...] place to sleep or slept in a chcf (including now)? No 02/14/2022 Nutrition Answer Date [...] Sex Assigned at Female 06/20/2021 7:53 PM DAY HAUL YOUTH SUPERVISOR Gender Identity Female 06/20/2021 7:53 PM DAY HAUL YOUTH SUPERVISOR Sexual Orientation Straight 06/20/2021 7: 53 PM DAY HAUL YOUTH SUPERVISOR documented as of this encounter Progress Notes * Luz Fulton R.N. - 01/17/2023 10:40 AM CDT Punch biopsy on the left breast was performed as ordered and outlined by Alicia Vick M.D. in the clinical note dated with today's date. documented in this encounter Consult Notes * Alicia Vick M.D. - 01/17/2023 10:40 AM CDT Supervised by: Fanny Em M.D. Correspondence to: Alicia Vick M.D. Location: [place] [address] Outpatient Clinic SUBJECTIVE REFERRAL SOURCE Laura Santacruz APRN, C.N.P., M.S.N. CHIEF COMPLAINT/REASON FOR VISIT Skin cancer screening examination HISTORY OF PRESENT ILLNESS Ms. Joleen Raza is a 62 y.o. female who presents today, unaccompanied, for a skin cancer screening examination. Skin cancer history: She is without personal history of skin cancer. No family history of melanoma. Last visit: The patient is new to [facility]. She is referred from the Breast Clinic . Today: Today, she mentions: A lesion on her left breast, suspected by the breast clinic to represent an epidermal cyst. She also reports a few similar lesions on her anterior neck, which became inflamed during college and are now scars. She wonders about any anti-aging skincare. No other skin concerns today. She is good about using sunscreen and sun protective measures. OBJECTIVE PHYSICAL EXAMINATION General: Awake, alert, in no acute distress, with appropriate affect. Skin: Full skin examination of the scalp, face, neck, chest, abdomen, back, bilateral upper extremities, bilateral lower extremities, and buttocks, sparing the genitalia, performed and revealed: Biopsies: Involving the left breast, there is a subcutaneous indurated nodule with overlying punctum, consistent with epidermal cyst. Photographs in QREADS. Pertinent findings: Involving the right axilla, there are scattered soft, fleshy, pedunculated papules, consistent withacrochordons. One pink waxy rrcqw-kk-oqxrjbtos papule, consistent with irritated seborrheic keratosis, noted on the right medial inframammary area. Background findings: Boyle II skin type. Mild dermatoheliosis in sun exposed areas. Primarily over the trunk and also on the extremities, there are scattered small brown round maculesand papules; many of these are examined dermoscopically and reveal regular symmetric network and appear consistent with banal-appearing nevi. Scattered waxy, filak-cx-gskenxhzs, brown-barba macules, papules and plaques, consistent with seborrheic keratoses. Over the trunk, there are a few bright red dome shaped papules, consistent with norris angiomas. No other concerning lesions in the areas examined. ASSESSMENT / PLAN #1 Skin cancer screening examination #2 Dermatoheliosis Sun protection, sun avoidance, the warning signs and symptoms of skin cancer, and the proper use ofsunscreens were reviewed with the patient. Recommend daily use of SPF 30+ broad spectrum sunscreen. #3 Banal-appearing nevi I recommend continued sun protection, self-skin examinations, and observation. Should any of the patient's nevi change in size, color, texture, or shape or develop symptoms such as itching or bleeding, I recommend an immediate return visit for reassessment. #4 Acrochordon(s) #5 Norris angiomas #6 Seborrheic keratoses The benign nature of the skin lesion(s) was discussed with the patient. No treatment is required. Irecommend continued observation. Should symptoms or changes develop related to this condition, I would recommend a return visit for reassessment. #7 Inflamed seborrheic keratos(es) The benign nature of this lesion(s) was discussed with the patient. Given the inflamed nature of this lesion(s), its treatment is medically indicated. We treated a total of 1 lesion(s) with one 20-second freeze-thaw cycle of liquid nitrogen cryotherapy. The patient tolerated the procedure well. Aftercare instructions were provided in written and verbal form to the patient. Should any of these lesions recur, the patient should return for further evaluation. #8 Skin tumor of uncertain behavior I explained the patient that I would like to acquire a biopsy of these lesion(s) for evaluation by our dermatopathologists. The patient expressed understanding and agreement with this plan. Specimen A: Left breast Differential Dx: Epidermal cyst Photographs obtained. Punch biopsy performed, using 8-mm disposable punch. Sutures to be removed inapproximately 10-14 days. Biopsy submitted to dermatopathology for H&E. INFORMED CONSENT Discussed the risks, benefits, alternatives, and the necessity of other members of the healthcare team participating in the procedure. All questions answered and consent given. PROCEDURAL PAUSE Prior to the procedure, final verification of the patient identity and correct marked surgical sitewas performed. PUNCH BIOPSY PROCEDURE The anesthesia used was 1% lidocaine with epinephrine 1:100,000. The skin was prepped in a sterile fashion with alcohol. A specimen was excised in a circular fashion through the full thickness of thedermis into the fat using a disposable punch. Due to wound size, the deep edges were closed with 4-0 subcutaneous vicryl sutures.The skin was approximated with 6-0 nylon skin sutures, to be removed in approximately 10-14 days. Blood loss: Minimal. Complications: None. Wound care: Routine. The report and recommendations will be communicated to the patient. CORRESPONDENCE Patient would prefer correspondence via the patient portal. All questions answered. Follow-up: PRN, pending biopsy results Alicia Vick M.D. Associated attestation - Fanny Em M.D. - 01/17/2023 11:03 AM CDT I saw and evaluated the patient, participating in the peña elements of the service. I discussed the findings, assessment and plan with the resident/fellow and agree with resident/fellow???s findings and plan as documented in the resident/fellow's note. I was immediately available for the entirety ofthe procedure(s) and present for the peña and critical portions. * Alicia Vick M.D. - 01/17/2023 10:40 AM CDT ADDENDUM: She also reports a few similar lesions on her anterior neck, which became inflamed during college and are now scars. Patient clarifies that only one of these lesions was from her college years. The second cyst (and now the more prominent scar) happened much more recently - during the summer of 2020. documented in this encounter Miscellaneous Notes * Result Encounter Note - Alicia Vick M.D. - 01/22/2023 2:53 PM CDT Benign, please send letter. Thank you, Alicia documented in this encounter Plan of Treatment Not on file documented as of this encounter Procedures Procedure Name Priority Date/Time Associated Diagnosis Comments DERMATOPATHOLOGY Routine 01/17/2023 10:4 8 AM CDT Cyst Epidermal Lesion Skin documented in this encounter Results * Dermatopathology (01/17/2023 10:48 AM CDT) 01/22/2023 7:46 AM CDT ALEXANDER Participated in the Interpretation Phi Mooney M.D. - Pathology Fellow 01/22/2023 7:46 AM CDT PDRM Report electronically signed by Stacey Loya M.D. 01/22/2023 7:46 AM CDT ALEXANDER Gross Description Received in formalin labeled with the patient's name, medical record number, and left breast is a 0.8 x 0.7 cm pale shea, ovoid skin punchbiopsy excised to a depth of 0.5 cm. No discrete lesion is grossly identified on the skin surface. The specimen is bisected to reveal a 0.3x 0.3 cm well-circumscr ibed cyst-like capsule containing pale shea grumous debris. The specimen is submitted entirely in cassette A1.Grossed by TIA. 01/22/2023 7:46 AM CDT PDRM Interpretation FINAL DIAGNOSIS A. ??Left Breast, Skin punch biopsy: ??Epidermoid cyst Diagnosis was made via digital imaging. 01/22/2023 7:46 AM CDT PDRM Skin (Left Breast) 01/17/2023 10:48 AM CDT Alicia Vick M.D. LAB PATH DERM [facility] 200 [place], [place] [address] [address] [place] [place] [address] 200 [place] [phone] documented in this encounter Visit Diagnoses Diagnosis Screening Examination Skin Cancer- Primary Cyst Epidermal Lesion Skin Dermatoheliosis Nevi Multiple Angioma Norris Keratosis Seborrheic Keratosis Seborrheic Inflamed Tumor Skin Uncertain Behavior documented in this encounter
--- OUTSIDE RECORDS SUMMARY | 2023-07-26 06:50 | XMS_ITS | Encounter Summary ---
Author Name Unknown Organization [facility] Address [address] [place] [address] Care Team Providers Care Baker Helper Name Role Phone Unavailable Primary Care Provider Unavailabl e Reason for Visit * Reason Onset Date Comments Pre-visit Intake 07/11/2023 Encounter Details Date Type Department Care Team (Latest Contact Info) Description 07/11/2023 9:00 AM ENDOSCOPE TECHNICIAN Clinical Communication Virtual Review in [place], [place] 200 [place] [address] Pre-visit Intake Social History Tobacco Use Types Packs/Day Years Used Date Smoking Tobacco: Never Passive Smoke Exposure: Never Smokeless Tobacco: Never Tobacco Cessation:Counseling Given: Not Answered Alcohol Use Standard Drinks/Week Comments Yes 0 (1 standard drink = 0.6 oz pure alcohol) maybe one glass of wine or mixed drink a month [facility] Utilities Answer Date Recorded In the past 12 months has [facility] [employer], oil, or water [employer] threatened to shut off services in your [...] often do you attend chur ch or latter day services? Never 02/14/2022 Do you belong to any clubs o r organizations such as yazidism groups, unions, fraternal or athletic groups, or [...] medical care, and heating? Patient declined 02/14/2022 [facility] of Occupat ional [facility] - Occupational Stress Questionnaire Answer Date [...] your living situation today? [facility] to live 07/05/2023 Education Answer Date Recorded What is the highest level of school you have completed or the highest degree you have received? Bachelor's degree (e.g., BA, AB, BS) 06/20/2021 Sex and Gender Information Value Date Recorded Sex Assigned at Female 06/20/2021 7:53 PM ENDOSCOPE TECHNICIAN Gender Identity Female 06/20/2021 7:53 PM ENDOSCOPE TECHNICIAN Sexual Orientation Straight 06/20/2021 7: 53 PM ENDOSCOPE TECHNICIAN documented as of this encounter Plan of Treatment Not on file documented as of this encounter Visit Diagnoses Not on filedocumented in this encounter
== END 2023-07-25 08:24 | disposition home or self-care (01) ==
LOC: NFLDREF 07-26 06:48
PROVIDERS: PCP Family Medicine; Referring Provider Family Medicine; Visit Provider Internal Medicine
DX: E78.5 Hyperlipidemia, unspecified (principal); E55.9 Vitamin D deficiency, unspecified; I10 Essential (primary) hypertension
CPT/HCPCS: 80053; 80061; 82306

== ENCOUNTER 2023-07-29 15:58 | Outpatient (CLI) | payer MEDICAID, SELFPAY ==
--- OUTSIDE RECORDS SUMMARY | 2023-07-29 16:04 | XMS_ITS ---
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 Past Plans No past plan information found. Radiation Treatments * Plan Last Treated On Elapsed Days Fractions Treated Prescribed Fraction Dose Prescribed Total Dose [id number] 10/03/2021 13 4 of 4 250 cGy 1,000 cGy [id number] 09/26/2021 6 5 of 5 520 cGy 2,600 cGy Reference Point Last Treated On Elapsed Days Session Dose Total Dose [id number] 10/03/2021 13 250 cGy 3,600 cGy [id number] 09/26/2021 6 520 cGy 2,600 cGy Treatment [...] was developed by a multidisciplinary team of [place] cancer providers to help you understand, discuss, [...] (Family Medicine) Domi Alvarado M.D. (Breast Clinic) Nettie Templeton APRN C.N.PSukhjinder (Breast Survivorship Clinic) Delisa Mcarthur M.S., [facility] (Clinical Genomics) Shashi Cheema M.D. (Breast Surgery) Al Biswas M.D. (Radiation Oncology) Cancer Diagnosis and Staging Information Diagnosis Cancer Breast Ductal In Situ Left Diagnosis date 07/18/2021 Staging information Cancer Staging Cancer Breast Ductal In Situ Left Staging form: Breast, AJCC 8th Edition - Pathologic stage from 08/04/2021: Stage 0 (pTis (DCIS), cN0, cM0, G3, ER+, FL+) Genetic Testing Performed Ms. Raza was originally seen in the Department of Clinical Genomics on 06/28/2021 due to her personal history of breast cancer and family history of cancer. At this visit, the patient elected to pursue the STAT Breast Cancer Panel, the Colorectal Cancer Panel and the Breast Cancer Panel through [facility]. Genetic testing included sequence analysis and gross [...] panel and the Colorectal Cancer panel through [facility]. 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 08/04/2021 Surgery and Procedures Left breast seed localized lumpectomy was performed by Dr. Shashi Cheema. PATHOLOGY: A. Breast, left, lumpectomy: Ductal carcinoma in situ (DCIS), high nuclear grade, involving an area 12 x 9 x 8 mm. All margins, qqyhm-le-sfxcqowu of the anterior and superior margins (parts [...] 1-2 weeks. Referral to Radiation Oncology in [place] to be scheduled in mid August after the patient returns from her planned trip to [facility]. 08/17/2021 Other Breast Clinic appointment with Dr. Domi Alvarado who discussed the role for adjuvant endocrine therapy in ER positive DCIS. Plan to begin exemestane after radiation therapy. 09/20/2021 - Radiation Therapy Radiation Therapy Treatment Details (Noted on 08/16/2021) Site: Left Breast Technique: 3D HOSPITAL MANAGER Goal: Curative Planned Treatment Start Date: 09/20/2021 Schedule of Surveillance Testing and Visits The basis for the surveillance testing schedule and test recommendations in this section are largely based on guidelines from the [place] [employer] of Clinical Oncology (ASCO), the biggest [...] your life, including relationships, school, work, and assisted plans. Anger is a normal response to [...] you, such as physical therapists, occupational therapists, face hardener, or mental health care providers Coping With [...] spiritual framework. -Talk with your spiritual or medical leader to help guide you through some of the questions raised by your illness. -Consider using the Home Health Registered Nurse staff at [facility] to help you with your spiritual [...] fat tissue -Talking to a dietitian or window assembler who can help you plan a healthy [...] care provider to refer you to a [facility] director social service. He or shecan give you workplace information. [...] a disability to have equal opportunities. A director social service can help you look at your situation [...] your doctor to help you quit. The [facility] can help. Stress [...]
--- OUTSIDE RECORDS SUMMARY | 2023-07-29 16:04 | XMS_ITS | Encounter Summary ---
Author Name Unknown Organization [facility] Address [address] [place] [address] Care Team Providers Care Scrub Woman Name Role Phone Unavailable Primary Care Provider Unavailabl e Reason for Referral * Outpatient (Routine) - Closed Specialty Diagnoses / Procedures Referred By Pamella t Referred To Contact Diagnoses Dense Breasts, Unspecified Procedures NM Molecular Breast Imaging Laura Santacruz APRN, C.NDevora, M.S.N. [address] [place] [phone] [facility] Referral ID Status Reason Start Date Expiration Date Visits Re quested Visits Authorized [id number] Closed 06/11/2022 06/11/2023 6 6 Reason for Visit * Outpatient (Routine) - Closed Specialty Diagnoses / Procedures Referred By Pamella ann Referred To Contact Diagnoses Dense Breasts, Unspecified Procedures NM Molecular Breast Imaging Laura Santacruz APRN, C.NDevora, M.S.N. [address] [place] [phone] [facility] Referral ID Status Reason Start Date Expiration Date Visits Re quested Visits Authorized [id number] Closed 06/11/2022 06/11/2023 6 6 Encounter Details Date Type Department Care Team (Latest Contact Info) Description 12/25/2022 9:27 AM CDT - 12/25/2022 11:59 PM CDT Hospital Encounter Department of Radiology in [place], [place] 200 [place] [phone] Laura Santacruz APRN C.N.P., M.S.N. 200 [place] [phone] Density Breast Discharge Disposition: Home or Self [...] often do you attend chur ch or druze services? Never 02/14/2022 Do you belong to [...] medical care, and heating? Patient declined 02/14/2022 [facility] of Occupat ional Health - Occupational [...] place to sleep or slept in a [place] facility (including now)? No 02/14/2022 Nutrition Answer Date [...] Sex Assigned at Female 06/20/2021 7:53 PM GRAIN ROASTER Gender Identity Female 06/20/2021 7:53 PM GRAIN ROASTER Sexual Orientation Straight 06/20/2021 7: 53 PM GRAIN ROASTER documented as of this encounter Medications at Time of Discharge Medication Sig Dispensed Refills Start Date End Date calcium carb/vit D3/minerals (CALCIUM-VITAMIN D ORAL) Take 1 tablet by mouth daily. 600 mg with D3 0 lisinopriL (PRINIVIL,ZESTRIL) 10 mg tablet Take 1 tablet by mouth daily. 0 11/09/2016 multivitamin tablet Take 1 tablet by mouth daily. 0 08/09/2011 omega 3-tbs-pji-fish oil 1,000 mg (120 mg-180 mg) capsule [...]
--- OUTSIDE RECORDS SUMMARY | 2023-07-29 16:04 | XMS_ITS | Encounter Summary ---
Author Name Unknown Organization [facility] Address [address] [place] [address] Care Team Providers Care Tool And Machine Maintainer Name Role Phone Unavailable Primary Care Provider Unavailabl e Reason for Referral * Outpatient (Routine) - Authorized Specialty Diagnoses / Procedures Referred By Contac t Referred To Contact Diagnoses Dense Breasts, Unspecified Procedures NM Molecular Breast Imaging Laura Santacruz APRN, C.NDevora, M.S.N. [address] [place] [phone] [facility] Referral ID Status Reason Start Date Expiration Date V isits Requested Visits Authorized [id number] Authorized 12/25/2022 12/25/2023 6 6 D REPRESENTATIVE/HEALTH EDUCATION Reason for Visit * Outpatient (Routine) - Authorized Specialty Diagnoses / Procedures Referred By Contac t Referred To Contact Diagnoses Dense Breasts, Unspecified Procedures NM Molecular Breast Imaging Laura Santacruz APRN, C.NDevora, M.S.N. [address] [place] [phone] [facility] Referral ID Status Reason Start Date Expiration Date V isits Requested Visits Authorized [id number] Authorized 12/25/2022 12/25/2023 6 6 Encounter Details Date Type Department Care Team (Latest Contact Info) Description 06/17/2023 7:37 AM FIELD REPRESENTATIVE/HEALTH EDUCATION - 06/17/2023 1:45 PM FIELD REPRESENTATIVE/HEALTH EDUCATION Hospital Encounter Department of Radiology in [place], [place] [address] [place] [phone] Laura Santacruz APRN, C.N.P., M.S.N. [address] [place] [address] Dense Breasts, Unspecified Discharge Disposition: Home or [...] often do you attend chur ch or advent services? Never 02/14/2022 Do you belong to any clubs o r organizations such as quaker groups, unions, fraternal or athletic groups, or [...] Sex Assigned at Female 06/20/2021 7:53 PM FIELD REPRESENTATIVE/HEALTH EDUCATION Gender Identity Female 06/20/2021 7:53 PM FIELD REPRESENTATIVE/HEALTH EDUCATION Sexual Orientation Straight 06/20/2021 7: 53 PM FIELD REPRESENTATIVE/HEALTH EDUCATION documented as of this encounter Medications at Time of Discharge Medication Sig Dispensed Refills Start Date End Date calcium carb/vit D3/minerals (CALCIUM-VITAMIN D ORAL) Take 1 tablet by mouth daily. 600 mg with D3 0 lisinopriL (PRINIVIL,ZESTRIL) 10 mg tablet Take 1 tablet by mouth daily. 0 11/09/2016 multivitamin tablet Take 1 tablet by mouth daily. 0 08/09/2011 omega 6-fyb-yua-fish oil 1,000 mg (120 mg-180 mg) capsule [...] inpatients and all outpatients) 06/17/2023 9:07 AM FIELD REPRESENTATIVE/HEALTH EDUCATION Dense Breasts, Unspecified documented in this encounter Results * (ABNORMAL) NM Molecular Breast Imaging (06/17/2023 9:07 AM FIELD REPRESENTATIVE/HEALTH EDUCATION) Anatomical Region Laterality Modality Breast, Nuclear Medicine RST LOS, Breast Imaging ARZ LOS, Breast Imaging FLA LOS, Nuclear Medicine N/A Nuclear Medic ine 06/17/2023 9:54 AM FIELD REPRESENTATIVE/HEALTH EDUCATION Impressions 06/17/2023 9:58 AM FIELD REPRESENTATIVE/HEALTH EDUCATION Stable probably benign uptake in the left breast. RECOMMENDATION: ??Short-Term Follow-Up 12 Month MBI in 12 months. Annual post lumpectomy diagnostic mammogram which will be due May 2023. ASSESSMENT: ??BI-RADS: 3: Probably Benign. Narrative 06/17/2023 9:58 AM FIELD REPRESENTATIVE/HEALTH EDUCATION EXAM: ??NM MOLECULAR BREAST IMAGING INDICATION: ??MBI [...] For 1 dose Given 06/17/2023 7:58 AM FIELD REPRESENTATIVE/HEALTH EDUCATION 8.8 millicuries Left Antecubital documented in this encounter
--- OUTSIDE RECORDS SUMMARY | 2023-07-29 16:04 | XMS_ITS | Referral Summary ---
Author Name Unknown Organization [facility] Address [address] [place] [address] Care Team Providers Care Artificial Flower Maker Name Role Phone Unavailable Primary Care Provider Unavailabl e Source Comments Patient records contain information from all sites at [facility]. For routine questions regarding patient records, call [phone] during business hours, M-F 8:00 AM - 5:00 PM Central Time. 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 Cancer Breast Personal History; Screening Mammogram Breast Cancer Discharge Disposition: Home or Self Care 06/17/2023 7:37 AM RHIC SYSTEMS SAFETY ENGINEER - 06/17/2023 1:45 PM RHIC SYSTEMS SAFETY ENGINEER Hospital Encounter Department of Radiology in [place], [place] [address] [place] [address] Laura Santacruz APRN, C.N.P., M.S.N. Dense Breasts, [...] 600 mg with D3 0 Active omega 3-kub-dep-fish oil 1,000 mg (120 mg-180 mg) capsule Take 1 capsule by mouth daily. 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 Patient declined 02/14/2022 [facility] - Occupational [...] Sex Assigned at Female 06/20/2021 7:53 PM RHIC SYSTEMS SAFETY ENGINEER Gender Identity Female 06/20/2021 7:53 PM RHIC SYSTEMS SAFETY ENGINEER Sexual Orientation Straight 06/20/2021 7: 53 PM RHIC SYSTEMS SAFETY ENGINEER Last Filed Vital Signs Vital Sign Reading Time Taken Comments Blood Pressure 126/81 07/24/2023 8:35 AM RHIC SYSTEMS SAFETY ENGINEER Pulse 60 07/24/2023 8:35 AM RHIC SYSTEMS SAFETY ENGINEER Temperature 36.4 ??C (97.5 ??F) 09/27/2021 3:19 PM CD T Respiratory Rate 14 08/04/2021 3:36 PM RHIC SYSTEMS SAFETY ENGINEER Oxygen Saturation 99% 08/04/2021 3:36 PM RHIC SYSTEMS SAFETY ENGINEER Inhaled Oxygen Concentration - - Weight 104 kg (228 lb 8.1 oz) 07/24/2023 8:35 AM RHIC SYSTEMS SAFETY ENGINEER Height 162.3 cm (5' 3.9) 07/24/2023 8:35 AM RHIC SYSTEMS SAFETY ENGINEER Body Mass Index 39.35 07/24/2023 8:35 AM RHIC SYSTEMS SAFETY ENGINEER Plan of Treatment Not on file Medical Devices Implanted Type Area Electronics Scale Tester Device Identifier Shelf Expiration Date Model / Serial / Lot Clp Hrzn Ti 6 Clp Red - [id number] Implanted:Qty: 1 on 08/04/2021 by Shashi Cheema M.D. at [facility] Hardware e.g. pins/screws/r ods [id number] [id number] / / Procedures Procedure Name Priority Date/Time Associated Diagnosis Comments BI BREAST DIAGNOSTIC BILATERAL WITH TOMOSYNTHESIS RAD - Routine (most inpatients and all outpatients) 06/17/2023 2:19 PM RHIC SYSTEMS SAFETY ENGINEER Cancer Breast Personal History Screening Mammogram Breast Cancer NM MBI BREAST STUDY RAD - Routine (most inpatients and all outpatients) 06/17/2023 9:07 AM RHIC SYSTEMS SAFETY ENGINEER Dense Breasts, Unspecified from Last 3 Months Results * BI Breast Diagnostic Bilateral with Tomosynthesis (06/17/2023 2:19 PM RHIC SYSTEMS SAFETY ENGINEER) Anatomical Region Laterality Modality Breast, Breast Imaging RST L OS, Breast Imaging ARZ LOS, Breast Imaging FLA LOS Bilateral Mammography 06/17/2023 2:35 PM RHIC SYSTEMS SAFETY ENGINEER Impressions 06/17/2023 2:51 PM RHIC SYSTEMS SAFETY ENGINEER No mammographic findings of malignancy. RECOMMENDATION: ??Resume Routine Mammogram Annual diagnostic mammography is recommended for the 1st 5 years following breast conservation therapy. ASSESSMENT: ??BI-RADS: 1: Negative. Narrative 06/17/2023 2:51 PM RHIC SYSTEMS SAFETY ENGINEER EXAM: ??BI BREAST DIAGNOSTIC BILATERAL WITH TOMOSYNTHESIS [...] NM Molecular Breast Imaging (06/17/2023 9:07 AM RHIC SYSTEMS SAFETY ENGINEER) Anatomical Region Laterality Modality Breast, Nuclear Medicine RST LOS, Breast Imaging ARZ LOS, Breast Imaging FLA LOS, Nuclear Medicine N/A Nuclear Medic ine 06/17/2023 9:54 AM RHIC SYSTEMS SAFETY ENGINEER Impressions 06/17/2023 9:58 AM RHIC SYSTEMS SAFETY ENGINEER Stable probably benign uptake in the left breast. RECOMMENDATION: ??Short-Term Follow-Up 12 Month MBI in 12 months. Annual post lumpectomy diagnostic mammogram which will be due May 2023. ASSESSMENT: ??BI-RADS: 3: Probably Benign. Narrative 06/17/2023 9:58 AM RHIC SYSTEMS SAFETY ENGINEER EXAM: ??NM MOLECULAR BREAST IMAGING INDICATION: ??MBI [...] Advance Directives For more information, please contact: [phone] Latest Code Status on File Code Status Date Activated Date Inactivated Comments Full Code 08/04/2021 8:10 AM 08/04/2021 7:57 PM Question Answer Comments Full Code: Not Discussed Due to: Not medically appropriate
--- OUTSIDE RECORDS SUMMARY | 2023-07-29 16:04 | XMS_ITS ---
Author Name Unknown Organization [facility] Address [address] [place] [address] Care Team Providers Care Hand Dry Cleaner Name Role Phone Unavailable Unavailable Unavailable Surgery Details Not on file Complications Check Surgery Details section. Procedure Estimated Blood Loss Check Surgery Details section. Procedure Findings Check Surgery Details section. Procedure Specimens Taken Check Surgery Details section.
--- OUTSIDE RECORDS SUMMARY | 2023-07-29 16:04 | XMS_ITS | Encounter Summary ---
Author Name Unknown Organization [facility] Address [address] [place] [address] Care Team Providers Care Car Rental Sales Assistant Name Role Phone Unavailable Primary Care Provider Unavailabl e Reason for Visit * Reason Onset Date Comments imaging 04/15/2023 Encounter Details Date Type Department Care Team (Late st Contact Info) Description 04/15/2023 Clinical Communication Breast Diagnostic Clinic in [place], [place] [address] [place] [phone] Laura Santacruz, GENEVA, C.N.P., M.S.N. [address] [place] [phone] imaging Social History Tobacco Use Types Packs/Day [...] often do you attend chur ch or judaism services? Never 02/14/2022 Do you belong to any clubs o r organizations such as mu-ism groups, unions, fraternal or athletic groups, or [...] medical care, and heating? Patient declined 02/14/2022 [facility] - Occupational Stress Questionnaire Answer Date [...] place to sleep or slept in a detention (including now)? No 02/14/2022 Nutrition Answer Date [...] Sex Assigned at Female 06/20/2021 7:53 PM TRACK HELPER Gender Identity Female 06/20/2021 7:53 PM TRACK HELPER Sexual Orientation Straight 06/20/2021 7: 53 PM TRACK HELPER documented as of this encounter Miscellaneous Notes [...]
--- OUTSIDE RECORDS SUMMARY | 2023-07-29 16:04 | XMS_ITS | Encounter Summary ---
Author Name Unknown Organization [facility] Address [address] [place] [address] Care Team Providers Care Sales Marketing Coordinator Name Role Phone Unavailable Primary Care Provider Unavailabl e Reason for Visit * Outpatient (Routine) - Closed Specialty Diagnoses / Procedures Referred By Pamella ann Referred To Contact Nutrition Diagnoses Body Mass Index 38.0 To 38.9 Adult Laura Santacruz APRN C.N.P., M.S.N. [address] [place] [phone] [facility] Referral ID Status Reason Start Date Expiration Date Visits Re quested Visits Authorized [id number] Closed 12/25/2022 12/25/2023 1 1 Encounter Details Date Type Department Care Team (Late st Contact Info) Description 01/15/2023 1:00 PM CDT Telemedicine Department of Nutrition and Diabetes Education in [place], [place] [address] [place] [phone] Laura Santacruz APRN C.N.PSukhjinder, M.S.N. [address] [place] [phone] Lulu Spears M.S., RDN, LD [address] [place] [phone] Body Mass Index 38.0 To 38.9 Adult [...] How often do you attend chur or zoroastrianism services? Never 02/14/2022 Do you belong to any clubs o r organizations such as anabaptism groups, unions, fraternal or athletic groups, or [...] 02/14/2022 [facility] - Occupational [...] Sex Assigned at Female 06/20/2021 7:53 PM PRINTING SALES REPRESENTATIVE Gender Identity Female 06/20/2021 7:53 PM PRINTING SALES REPRESENTATIVE Sexual Orientation Straight 06/20/2021 7: 53 PM PRINTING SALES REPRESENTATIVE documented as of this encounter Last Filed [...]
--- OUTSIDE RECORDS SUMMARY | 2023-07-29 16:04 | XMS_ITS | Encounter Summary ---
Author Name Unknown Organization [facility] Address [address] [place] [address] Care Team Providers Care Bushel Girl Name Role Phone Unavailable Primary Care Provider Unavailabl e Reason for Visit * Outpatient (Routine) - Closed Specialty Diagnoses / Procedures Referred By Pamella ann Referred To Contact Dermatology Diagnoses Cyst Sebaceous Lesion Skin Laura Santacruz, GENEVA, C.N.P., M.S.N. [address] [place] [phone] [facility] Referral ID Status Reason Start Date Expiration Date Visits Re quested Visits Authorized [id number] Closed 12/25/2022 12/25/2023 1 1 Encounter Details Date Type Department Care Team (Latest Contact Info) Description 01/17/2023 10:40 AM CDT Comprehensive Visit Department of Dermatology in [place], [place] [address] [place] [phone] Maxx Mcintyre M.D. [address] [place] [phone] Alicia Vick M.D. [address] [place] [phone] Screening Examination Skin Cancer (Primary Dx); Cyst [...] How often do you attend chur or pentecostal services? Never 02/14/2022 Do you belong to [...] medical care, and heating? Patient declined 02/14/2022 [facility] - Occupational Stress [...] Sex Assigned at Female 06/20/2021 7:53 PM FISH SKINNING MACHINE FEEDER Gender Identity Female 06/20/2021 7:53 PM FISH SKINNING MACHINE FEEDER Sexual Orientation Straight 06/20/2021 7: 53 PM FISH SKINNING MACHINE FEEDER documented as of this encounter Progress Notes [...] M.D. Correspondence to: Alicia Vick M.D. Location: [place] [address] Outpatient Clinic SUBJECTIVE REFERRAL SOURCE Laura Santacruz APRN, C.N.P., M.S.N. CHIEF COMPLAINT/REASON FOR VISIT Skin cancer screening examination HISTORY OF PRESENT ILLNESS Ms. Joleen Raza is a 62 y.o. female who presents today, unaccompanied, for a skin cancer screening examination. Skin cancer history: She is without personal history of skin cancer. No family history of melanoma. Last visit: The patient is new to [facility]. She is referred from the Breast [...] pedunculated papules, consistent withacrochordons. One pink waxy uvnmu-cn-yydqhfigg papule, consistent with irritated seborrheic keratosis, noted on the right medial inframammary area. Background findings: Boyle II skin type. Mild dermatoheliosis in sun exposed areas. Primarily over the trunk and also on the extremities, there are scattered small brown round maculesand papules; many of these are examined dermoscopically and reveal regular symmetric network and appear consistent with banal-appearing nevi. Scattered waxy, ideuu-dj-bgaddfren, brown-barba macules, papules and plaques, consistent with [...] Vick M.D. LAB PATH DERM [facility] 200 [place], [place] [address] [address] [place] [address] 200 [place] [phone] documented in this encounter Visit Diagnoses Diagnosis Screening Examination Skin Cancer- Primary Cyst Epidermal Lesion Skin Dermatoheliosis Nevi Multiple Angioma Norris Keratosis Seborrheic Keratosis Seborrheic Inflamed Tumor Skin Uncertain Behavior documented in this encounter
--- OUTSIDE RECORDS SUMMARY | 2023-07-29 16:04 | XMS_ITS | Encounter Summary ---
Author Name Unknown Organization [facility] Address [address] [place] [address] Care Team Providers Care Court Crier Name Role Phone Unavailable Primary Care Provider Unavailabl e Reason for Visit * Reason Onset Date Comments Pre-visit Intake 07/11/2023 Encounter Details Date Type Department Care Team (Latest Contact Info) Description 07/11/2023 9:00 AM SOFTWARE TOOLS DEVELOPER Clinical Communication Virtual Review in [place], [place] 200 [place] [address] Pre-visit Intake Social History Tobacco Use Types Packs/Day Years Used Date Smoking Tobacco: Never Passive Smoke Exposure: Never Smokeless Tobacco: Never Tobacco Cessation:Counseling Given: Not Answered Alcohol Use Standard Drinks/Week Comments Yes 0 (1 standard drink = 0.6 oz pure alcohol) maybe one glass of wine or mixed drink a month [facility] Utilities Answer Date Recorded In the past 12 months has [facility] [employer], oil, or water [employer] threatened to shut off services in your [...] often do you attend chur ch or holiness services? Never 02/14/2022 Do you belong to any clubs o r organizations such as sabianist groups, unions, fraternal or athletic groups, or [...] medical care, and heating? Patient declined 02/14/2022 [facility] - Occupational Stress Questionnaire Answer [...] your living situation today? I have a [facility] place to live 07/05/2023 Education Answer Date Recorded What is the highest level of school you have completed or the highest degree you have received? Bachelor's degree (e.g., BA, AB, BS) 06/20/2021 Sex and Gender Information Value Date Recorded Sex Assigned at Female 06/20/2021 7:53 PM SOFTWARE TOOLS DEVELOPER Gender Identity Female 06/20/2021 7:53 PM SOFTWARE TOOLS DEVELOPER Sexual Orientation Straight 06/20/2021 7: 53 PM SOFTWARE TOOLS DEVELOPER documented as of this encounter Plan of Treatment Not on file documented as of this encounter Visit Diagnoses Not on filedocumented in this encounter
--- OUTSIDE RECORDS SUMMARY | 2023-07-29 16:04 | XMS_ITS | Encounter Summary ---
Author Name Unknown Organization [facility] Address [address] [place] [address] Care Team Providers Care Inspector Bicycle Name Role Phone Unavailable Primary Care Provider Unavailabl e Reason for Referral * Outpatient (Routine) - Closed Specialty Diagnoses / Procedures Referred By Pamella ann Referred To Contact Diagnoses Cancer Breast Personal History Screening Mammogram Breast Cancer Procedures BI Breast Diagnostic Bilateral with Tomosynthesis Laura Santacruz APRN, C.N.P., M.S.N. [address] [place] [phone] [facility] Referral ID Status Reason Start Date Expiration Date Visits Re quested Visits Authorized [id number] Closed 12/25/2022 12/25/2023 1 1 MAKING MACHINE OPERATOR Reason for Visit * Outpatient (Routine) - Closed Specialty Diagnoses / Procedures Referred By Pamella ann Referred To Contact Diagnoses Cancer Breast Personal History Screening Mammogram Breast Cancer Procedures BI Breast Diagnostic Bilateral with Tomosynthesis Laura Santacruz APRN, C.NDevora, M.S.N. [address] [place] [phone] [facility] Referral ID Status Reason Start Date Expiration Date Visits Re quested Visits Authorized [id number] Closed 12/25/2022 12/25/2023 1 1 Encounter Details Date Type Department Care Team (Latest Contact Info) Description 06/17/2023 1:46 PM COREMAKING MACHINE OPERATOR - 06/17/2023 11:59 PM COREMAKING MACHINE OPERATOR Hospital Encounter Department of Radiology in [place], [place] 200 [place] [phone] Laura Santacruz APRN, C.N.P., M.S.N. 200 [place] [phone] Cancer Breast Personal History; Screening Mammogram Breast [...] often do you attend chur ch or yarsani services? Never 02/14/2022 Do you belong to any clubs o r organizations such as synagogue groups, unions, fraternal or athletic groups, or [...] medical care, and heating? Patient declined 02/14/2022 [facility] - Occupational [...] place to sleep or slept in a prison (including now)? No 02/14/2022 Nutrition Answer Date [...] Sex Assigned at Female 06/20/2021 7:53 PM COREMAKING MACHINE OPERATOR Gender Identity Female 06/20/2021 7:53 PM COREMAKING MACHINE OPERATOR Sexual Orientation Straight 06/20/2021 7: 53 PM COREMAKING MACHINE OPERATOR documented as of this encounter Medications at Time of Discharge Medication Sig Dispensed Refills Start Date End Date calcium carb/vit D3/minerals (CALCIUM-VITAMIN D ORAL) Take 1 tablet by mouth daily. 600 mg with D3 0 lisinopriL (PRINIVIL,ZESTRIL) 10 mg tablet Take 1 tablet by mouth daily. 0 11/09/2016 multivitamin tablet Take 1 tablet by mouth daily. 0 08/09/2011 omega 4-jat-clq-fish oil 1,000 mg (120 mg-180 mg) capsule [...] inpatients and all outpatients) 06/17/2023 2:19 PM COREMAKING MACHINE OPERATOR Cancer Breast Personal History Screening Mammogram Breast Cancer documented in this encounter Results * BI Breast Diagnostic Bilateral with Tomosynthesis (06/17/2023 2:19 PM COREMAKING MACHINE OPERATOR) Anatomical Region Laterality Modality Breast, Breast Imaging RST L OS, Breast Imaging ARZ LOS, Breast Imaging FLA LOS Bilateral Mammography 06/17/2023 2:35 PM COREMAKING MACHINE OPERATOR Impressions 06/17/2023 2:51 PM COREMAKING MACHINE OPERATOR No mammographic findings of malignancy. RECOMMENDATION: ??Resume Routine Mammogram Annual diagnostic mammography is recommended for the 1st 5 years following breast conservation therapy. ASSESSMENT: ??BI-RADS: 1: Negative. Narrative 06/17/2023 2:51 PM COREMAKING MACHINE OPERATOR EXAM: ??BI BREAST DIAGNOSTIC BILATERAL WITH TOMOSYNTHESIS [...]
--- OUTSIDE RECORDS SUMMARY | 2023-07-29 16:04 | XMS_ITS | Encounter Summary ---
Author Name Unknown Organization [facility] Address [address] [place] [address] Care Team Providers Care Mine Surveyor Name Role Phone Unavailable Primary Care Provider Unavailabl e Reason for Referral * Outpatient (Routine) - Authorized Specialty Diagnoses / Procedures Referred By Pamella ann Referred To Contact Breast Clinic Merlyn Sauceda APRN, CNS [address] [place] [phone] [facility] Referral ID Status Reason Start Date Expiration Date V isits Requested Visits Authorized [id number] Authorized 07/24/2023 01/22/2025 1 1 IANCE WORKER Reason for Visit * Reason Comments Established * Outpatient (Routine) - Closed Specialty Diagnoses / Procedures Referred By Pamella ann Referred To Contact Breast Clinic Laura Santacruz APRN, C.N.P., M.S.N. [address] [place] [phone] [facility] Referral ID Status Reason Start Date Expiration Date Visits Re quested Visits Authorized [id number] Closed 12/25/2022 12/24/2025 1 1 Encounter Details Date Type Department Care Team ([facility] st Contact Info) Description 07/24/2023 8:45 AM APPLIANCE WORKER Office Visit Breast Diagnostic Clinic in [place], [place] [address] [place] [phone] Merlyn Sauceda, AUTOMOTIVE INTERNET SALES MANAGER, COAL OR ORE CONTROLLER [address] [place] [phone] Cancer Breast Ductal In Situ Left (Primary [...] of wine or mixed drink a month [facility] [employer] Answer Date Recorded In the past 12 months has e [employer], gas, oil, or water [employer] threatened to shut off services in your [...] any clubs o r organizations such as caodaism groups, unions, fraternal or athletic groups, or [...] medical care, and heating? Patient declined 02/14/2022 [facility] - [...] Sex Assigned at Female 06/20/2021 7:53 PM APPLIANCE WORKER Gender Identity Female 06/20/2021 7:53 PM APPLIANCE WORKER Sexual Orientation Straight 06/20/2021 7: 53 PM APPLIANCE WORKER documented as of this encounter Last Filed Vital Signs Vital Sign Reading Time Taken Comments Blood Pressure 126/81 07/24/2023 8:35 AM APPLIANCE WORKER Pulse 60 07/24/2023 8:35 AM APPLIANCE WORKER Temperature - - Respiratory Rate - - Oxygen Saturation - - Inhaled Oxygen Concentration - - Weight 104 kg (228 lb 8.1 oz) 07/24/2023 8:35 AM APPLIANCE WORKER Height 162.3 cm (5' 3.9) 07/24/2023 8:35 AM APPLIANCE WORKER Body Mass Index 39.35 07/24/2023 8:35 AM APPLIANCE WORKER documented in this encounter Progress Notes * Merlyn Sauceda, AUTOMOTIVE INTERNET SALES MANAGER, COAL OR ORE CONTROLLER - 07/24/2023 8:45 AM CST CHIEF COMPLAINT / REASON FOR VISIT History of left breast cancer HISTORY OF PRESENT ILLNESS Joleen Raza is a 62 y.o. female from [place], [place]. Her breast cancer history is as [...] panel and the Colorectal Cancer panel through [facility]. 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 08/04/2021 Surgery and Procedures Left breast seed localized lumpectomy was performed by Dr. Shashi Cheema. PATHOLOGY: A. Breast, left, lumpectomy: Ductal carcinoma in situ (DCIS), high nuclear grade, involving an area 12 x 9 x 8 mm. All margins, ghsxn-io-qxcbgcvz of the anterior and superior margins (parts [...] 1-2 weeks. Referral to Radiation Oncology in [place] to be scheduled in mid August after the patient returns from her planned trip to [facility]. 08/17/2021 Other Breast Clinic appointment with Dr. Domi Alvarado who discussed the role for adjuvant endocrine therapy in ER positive DCIS. Plan to begin exemestane after radiation therapy. Patient later decided to forego endocrine therapy due to concerns regarding side effects. 09/20/2021 - 10/03/2021 Radiation Therapy Radiation Therapy Treatment Details (09/20/2021 - 10/03/2021) Site: Left Breast Technique: 3D BAND BIAS MACHINE OPERATOR Goal: Curative Planned Treatment Start Date: 09/20/2021 Dose: 2600 cGy in 5 fractions, 1000 cGy boost to the lumpectomy cavity in 4 fractions for a total of 3600 in 9 fractions Mrs. Raza was last seen in the [facility] by my colleague, Laura Santacruz [...] notes that she was seen by a optic fibre drawer here [facility] this past summer. She has not been [...] plan; patient expressed understanding of the content. IANCE WORKER documented in this encounter Plan of Treatment [...]
--- OUTSIDE RECORDS SUMMARY | 2023-07-29 16:04 | XMS_ITS | Clinical Summary ---
Author Name Unknown Organization [facility] Address [address] [place] [address] Care Team Providers Care Material Distributor Name Role Phone Unavailable Primary Care Provider Unavailabl e Source Comments Patient records contain information from all sites at [facility]. For routine questions regarding patient records, call [phone] during business hours, M-F 8:00 AM - 5:00 PM Central Time. Record requests for emergency care only can be directed to [phone] at any time.[facility] Allergies No known active allergies Medications Medication [...] 600 mg with D3 0 Active omega 4-ntz-uyg-fish oil 1,000 mg (120 mg-180 mg) capsule Take 1 capsule by mouth daily. 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 Cancer Staging:Pathologic stage from 08/04/2021:Stage 0(pTis (DCIS), cN0, cM0, G3, ER+, MA+) - Unsigned Migraine Headache 06/15/2021 Deficiency Vitamin D 06/15/2021 Hypertension Essential Primary 06/15/2021 Encounters Date Type Department Care Team Description 07/24/2023 8:45 AM BIN TRIPPER OPERATOR Office Visit Breast Diagnostic Clinic in [place], [place] [address] [place] [phone] Merlyn Sauceda, GENEVA, WREATH MACHINE TENDER Cancer Breast Ductal In Situ Left (Primary Dx); Radiation Therapy Personal History; Cancer Breast Family History; Body Mass Index 39.0 To 39.9 Adult 07/11/2023 9:00 AM BIN TRIPPER OPERATOR Clinical Communication Virtual Review in [place], [place] [address] [place] [address] Pre-visit Intake 06/17/2023 1:46 PM BIN TRIPPER OPERATOR - 06/17/2023 11:59 PM BIN TRIPPER OPERATOR Hospital Encounter Department of Radiology in [place], [place] [address] [place] [phone] Laura Santacruz APRN, C.N.P., M.S.N. Cancer Breast Personal History; Screening Mammogram Breast Cancer Discharge Disposition: Home or Self Care 06/17/2023 7:37 AM BIN TRIPPER OPERATOR - 06/17/2023 1:45 PM BIN TRIPPER OPERATOR Hospital Encounter Department of Radiology in [place], [place] [address] [place] [phone] Laura Santacruz APRN, C.N.P., M.S.N. Dense Breasts, [...] - PFIZ ER (12 YEARS OR OLDER) [phone] 03/21/2023 Tdap 12/24/2017,11/20/2006 influenza vaccine QV(FLUBLOK ) [...] Sister 1 Neetu Oswald Alive Sister 2 [facility] Social History Tobacco Use Types Packs/Day Years Used Date Smoking Tobacco: Never Passive Smoke Exposure: Never Smokeless Tobacco: Never Tobacco Cessation:Counseling Given: Not Answered Alcohol Use Standard Drinks/Week Comments Yes 0 (1 standard drink = 0.6 oz pure alcohol) maybe one glass of wine or mixed drink a month [facility] [employer] Answer Date Recorded In the past 12 months has [facility] [employer], [employer], or water [employer] threatened to shut off services in your [...] often do you attend chur ch or caodaism services? Never 02/14/2022 Do you belong to any clubs o r organizations such as lutheran groups, unions, fraternal or athletic groups, or [...] medical care, and heating? Patient declined 02/14/2022 [facility] - Occupational [...] your living situation today? I have a [facility] place to live 07/05/2023 Education Answer Date Recorded What is the highest level of school you have completed or the highest degree you have received? Bachelor's degree (e.g., BA, AB, BS) 06/20/2021 Sex and Gender Information Value Date Recorded Sex Assigned at Female 06/20/2021 7:53 PM BIN TRIPPER OPERATOR Gender Identity Female 06/20/2021 7:53 PM BIN TRIPPER OPERATOR Sexual Orientation Straight 06/20/2021 7: 53 PM BIN TRIPPER OPERATOR Last Filed Vital Signs Vital Sign Reading Time Taken Comments Blood Pressure 126/81 07/24/2023 8:35 AM BIN TRIPPER OPERATOR Pulse 60 07/24/2023 8:35 AM BIN TRIPPER OPERATOR Temperature 36.4 ??C (97.5 ??F) 09/27/2021 3:19 PM CD T Respiratory Rate 14 08/04/2021 3:36 PM BIN TRIPPER OPERATOR Oxygen Saturation 99% 08/04/2021 3:36 PM BIN TRIPPER OPERATOR Inhaled Oxygen Concentration - - Weight 104 kg (228 lb 8.1 oz) 07/24/2023 8:35 AM BIN TRIPPER OPERATOR Height 162.3 cm (5' 3.9) 07/24/2023 8:35 AM BIN TRIPPER OPERATOR Body Mass Index 39.35 07/24/2023 8:35 AM BIN TRIPPER OPERATOR Plan of Treatment Health Maintenance Due Date [...] this topic Medical Devices Implanted Type Area Credit Support Specialist Device Identifier Shelf Expiration Date Model / Serial / Lot Clp Hrzn Ti 6 Clp Sm Red - [id number] Implanted:Qty: 1 on 08/04/2021 by Shashi Cheema M.D. at [facility] Hardware e.g. pins/screws/r ods Booster Pack [id number] / / Procedures Procedure Name Priority Date/Time Associated Diagnosis Comments BI BREAST DIAGNOSTIC BILATERAL WITH TOMOSYNTHESIS RAD - Routine (most inpatients and all outpatients) 06/17/2023 2:19 PM BIN TRIPPER OPERATOR Cancer Breast Personal History Screening Mammogram Breast Cancer NM MBI BREAST STUDY RAD - Routine (most inpatients and all outpatients) 06/17/2023 9:07 AM BIN TRIPPER OPERATOR Dense Breasts, Unspecified from Last 3 Months Results * BI Breast Diagnostic Bilateral with Tomosynthesis (06/17/2023 2:19 PM BIN TRIPPER OPERATOR) Anatomical Region Laterality Modality Breast, Breast Imaging RST L OS, Breast Imaging ARZ LOS, Breast Imaging FLA LOS Bilateral Mammography 06/17/2023 2:35 PM BIN TRIPPER OPERATOR Impressions 06/17/2023 2:51 PM BIN TRIPPER OPERATOR No mammographic findings of malignancy. RECOMMENDATION: ??Resume Routine Mammogram Annual diagnostic mammography is recommended for the 1st 5 years following breast conservation therapy. ASSESSMENT: ??BI-RADS: 1: Negative. Narrative 06/17/2023 2:51 PM BIN TRIPPER OPERATOR EXAM: ??BI BREAST DIAGNOSTIC BILATERAL WITH [...] M.S.N. IMG B I PROCEDURES * (ABNORMAL) UT Molecular Breast Imaging (06/17/2023 9:07 AM BIN TRIPPER OPERATOR) Anatomical Region Laterality Modality Breast, Nuclear Medicine RST LOS, Breast Imaging ARZ LOS, Breast Imaging FLA LOS, Nuclear Medicine N/A Nuclear Medic ine 06/17/2023 9:54 AM BIN TRIPPER OPERATOR Impressions 06/17/2023 9:58 AM BIN TRIPPER OPERATOR Stable probably benign uptake in the left breast. RECOMMENDATION: ??Short-Term Follow-Up 12 Month MBI in 12 months. Annual post lumpectomy diagnostic mammogram which will be due May 2023. ASSESSMENT: ??BI-RADS: 3: Probably Benign. Narrative 06/17/2023 9:58 AM BIN TRIPPER OPERATOR EXAM: ??NM MOLECULAR BREAST IMAGING INDICATION: ??MBI [...] Advance Directives For more information, please contact: [phone] Latest Code Status on File Code Status Date Activated Date Inactivated Comments Full Code 08/04/2021 8:10 AM 08/04/2021 7:57 PM Question Answer Comments Full Code: Not Discussed Due to: Not medically appropriate
--- OUTSIDE RECORDS SUMMARY | 2023-07-29 16:04 | XMS_ITS | Encounter Summary ---
Author Name Unknown Organization [facility] Address [address] [place] [address] Care Team Providers Care Bacteriologist Industrial Name Role Phone Unavailable Primary Care Provider [...] often do you attend chur ch or yazdanism services? Never 02/14/2022 Do you belong to [...] medical care, and heating? Patient declined 02/14/2022 [facility] - Occupational Stress Questionnaire Answer Date [...] Sex Assigned at Female 06/20/2021 7:53 PM SAP BUSINESS OBJECTS CONSULTANT Gender Identity Female 06/20/2021 7:53 PM SAP BUSINESS OBJECTS CONSULTANT Sexual Orientation Straight 06/20/2021 7: 53 PM SAP BUSINESS OBJECTS CONSULTANT documented as of this encounter Plan of [...]
--- OUTSIDE RECORDS SUMMARY | 2023-07-29 16:05 | XMS_ITS | Encounter Summary ---
Author Name Unknown Organization [facility] Address [address] [place] [address] Care Team Providers Care Substance Abuse Therapist Name Role Phone Unavailable Primary Care Provider Unavailabl e Reason for Referral * Outpatient (Routine) - Closed Specialty Diagnoses / Procedures Referred By Pamella ann Referred To Contact Diagnoses Cancer Breast Personal History Screening Mammogram Breast Cancer Procedures BI Breast Diagnostic Bilateral with Tomosynthesis Laura Santacruz APRN, C.NDevora, M.S.N. [address] [place] [phone] [facility] Referral ID Status Reason Start Date Expiration Date Visits Re quested Visits Authorized [id number] Closed 12/25/2022 12/25/2023 1 1 * Outpatient (Routine) - Authorized Specialty Diagnoses / Procedures Referred By Pamella ann Referred To Contact Diagnoses Dense Breasts, Unspecified Procedures NM Molecular Breast Imaging Laura Santacruz APRN, C.NDevora, M.S.N. [address] [place] [phone] [facility] Referral ID Status Reason Start Date Expiration Date V isits Requested Visits Authorized [id number] Authorized 12/25/2022 12/25/2023 6 6 * Outpatient (Routine) - Closed Specialty Diagnoses / Procedures Referred By Contac t Referred To Contact Dermatology Diagnoses Cyst Sebaceous Lesion Skin Laura Santacruz APRN, C.N.P., M.S.N. [address] [place] [phone] [facility] Referral ID Status Reason Start Date Expiration Date Visits Re quested Visits Authorized [id number] Closed 12/25/2022 12/25/2023 1 1 * Outpatient (Routine) - Closed Specialty Diagnoses / Procedures Referred By Contac t Referred To Contact Nutrition Diagnoses Body Mass Index 38.0 To 38.9 Adult Laura Santacruz APRN, C.N.P., M.S.N. [address] [place] [phone] [facility] Referral ID Status Reason Start Date Expiration Date Visits Re quested Visits Authorized [id number] Closed 12/25/2022 12/25/2023 1 1 * Outpatient (Routine) - Closed Specialty Diagnoses / Procedures Referred By Contac t Referred To Contact Breast Clinic Laura Santacruz APRN, C.N.P., M.S.N. [address] [place] [phone] [facility] Referral ID Status Reason Start Date Expiration Date Visits Re quested Visits Authorized [id number] Closed 12/25/2022 12/24/2025 1 1 Reason for Visit * Reason Comments Follow-up * Outpatient (Routine) - Closed Specialty Diagnoses / Procedures Referred By Pamella ann Referred To Contact Breast Clinic Laura Santacruz APRN, C.N.P., M.S.N. [address] [place] [phone] [facility] Referral ID Status Reason Start Date Expiration Date Visits Re quested Visits Authorized [id number] Closed 06/11/2022 06/10/2025 1 1 Encounter Details Date Type Department Care Team (Late st Contact Info) Description 12/25/2022 8:45 AM CDT Office Visit Breast Diagnostic Clinic in [place], [place] [address] [place] [phone] Laura Santacruz APRN, C.N.P., M.S.N. [address] [place] [phone] Screening Mammogram Breast Cancer (Primary Dx); Body [...] often do you attend chur ch or anabaptism services? Never 02/14/2022 Do you belong to any clubs o r organizations such as judaism groups, unions, fraternal or athletic groups, or [...] care, and heating? Patient declined 02/14/2022 [facility] - [...] place to sleep or slept in a correction (including now)? No 02/14/2022 Nutrition Answer Date [...] Sex Assigned at Female 06/20/2021 7:53 PM NON DESTRUCTIVE TESTING TECHNICIAN Gender Identity Female 06/20/2021 7:53 PM NON DESTRUCTIVE TESTING TECHNICIAN Sexual Orientation Straight 06/20/2021 7: 53 PM NON DESTRUCTIVE TESTING TECHNICIAN documented as of this encounter Last Filed [...] panel and the Colorectal Cancer panel through [facility]. 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 08/04/2021 Surgery and Procedures Left breast seed localized lumpectomy was performed by Dr. Shashi Cheema. PATHOLOGY: A. Breast, left, lumpectomy: Ductal carcinoma in situ (DCIS), high nuclear grade, involving an area 12 x 9 x 8 mm. All margins, [id number] of the anterior and superior margins (parts [...] 1-2 weeks. Referral to Radiation Oncology in [place] to be scheduled in mid August after the patient returns from her planned trip to [facility]. 08/17/2021 Other Breast Clinic appointment with Dr. Domi Alvarado who discussed the role for adjuvant endocrine therapy in ER positive DCIS. Plan to begin exemestane after radiation therapy. Patient later decided to forego endocrine therapy due to concerns regarding side effects. 09/20/2021 - 10/03/2021 Radiation Therapy Radiation Therapy Treatment Details (09/20/2021 - 10/03/2021) Site: Left Breast Technique: 3D LABORER PRESTRESSED CONCRETE Goal: Curative Planned Treatment Start Date: 09/20/2021 [...] Diagnostic Bilateral with Tomosynthesis (06/17/2023 2:19 PM NON DESTRUCTIVE TESTING TECHNICIAN) Anatomical Region Laterality Modality Breast, Breast Imaging RST L OS, Breast Imaging ARZ LOS, Breast Imaging FLA LOS Bilateral Mammography 06/17/2023 2:35 PM NON DESTRUCTIVE TESTING TECHNICIAN Impressions 06/17/2023 2:51 PM NON DESTRUCTIVE TESTING TECHNICIAN No mammographic findings of malignancy. RECOMMENDATION: ??Resume Routine Mammogram Annual diagnostic mammography is recommended for the 1st 5 years following breast conservation therapy. ASSESSMENT: ??BI-RADS: 1: Negative. Narrative 06/17/2023 2:51 PM NON DESTRUCTIVE TESTING TECHNICIAN EXAM: ??BI BREAST DIAGNOSTIC BILATERAL WITH [...] NM Molecular Breast Imaging (06/17/2023 9:07 AM NON DESTRUCTIVE TESTING TECHNICIAN) Anatomical Region Laterality Modality Breast, Nuclear Medicine RST LOS, Breast Imaging ARZ LOS, Breast Imaging FLA LOS, Nuclear Medicine N/A Nuclear Medic ine 06/17/2023 9:54 AM NON DESTRUCTIVE TESTING TECHNICIAN Impressions 06/17/2023 9:58 AM NON DESTRUCTIVE TESTING TECHNICIAN Stable probably benign uptake in the left breast. RECOMMENDATION: ??Short-Term Follow-Up 12 Month MBI in 12 months. Annual post lumpectomy diagnostic mammogram which will be due May 2023. ASSESSMENT: ??BI-RADS: 3: Probably Benign. Narrative 06/17/2023 9:58 AM NON DESTRUCTIVE TESTING TECHNICIAN EXAM: ??NM MOLECULAR BREAST IMAGING INDICATION: [...]
--- OUTSIDE RECORDS SUMMARY | 2023-07-29 16:05 | XMS_ITS | Encounter Summary ---
Author Name Unknown Organization [facility] Address [address] [place] [address] Care Team Providers Care Tin Stacker Name Role Phone Unavailable Primary Care Provider Unavailabl e Reason for Visit * Reason Onset Date Comments Pre-visit Intake 12/24/2022 Encounter Details Date Type Department Care Team (Latest Contact Info) Description 12/24/2022 9:30 AM CDT Clinical Communication Virtual Review in [place], [place] 200 [place] [address] Pre-visit Intake Social History Tobacco Use Types [...] medical care, and heating? Patient declined 02/14/2022 [facility] - Occupational Stress Questionnaire [...] place to sleep or slept in a usp (including now)? No 02/14/2022 Nutrition Answer Date [...] Sex Assigned at Female 06/20/2021 7:53 PM CEREAL MAKER Gender Identity Female 06/20/2021 7:53 PM CEREAL MAKER Sexual Orientation Straight 06/20/2021 7: 53 PM CEREAL MAKER documented as of this encounter Plan of Treatment Not on file documented as of this encounter Visit Diagnoses Not on filedocumented in this encounter
--- OUTSIDE RECORDS SUMMARY | 2023-07-29 16:05 | XMS_ITS | Clinical Summary ---
Author Name Unknown Organization [facility] Address [place], [place] [address] Care Team Providers Care Sales Agent Food Vending Service Name Role Phone Pcp, No Primary Care [...] T Respiratory Rate 20 05/24/2008 8:30 AM MARKETING CONTENT SPECIALIST Oxygen Saturation 96% 11/01/2015 8:35 AM CDT [...] age to complete this topic Care Teams Sales Agent Food Vending Service Relationship Specialty Start Date End Date Pcp, No . PCP - General 06/06/18
== END 2023-07-29 15:59 | disposition home or self-care (01) ==
LOC: NFLDREF 15:59
PROVIDERS: PCP Family Medicine; Visit Provider Internal Medicine
DX: I10 Essential (primary) hypertension (principal)
CPT/HCPCS: 84443

== ENCOUNTER 2024-03-19 10:26 | Outpatient (CLI) | payer MEDICAID, SELFPAY ==
--- OUTSIDE RECORDS SUMMARY | 2024-03-19 10:29 | XMS_ITS ---
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 Past Plans No past plan information found. Radiation Treatments * Plan Last Treated On Elapsed Days Fractions Treated Prescribed Fraction Dose Prescribed Total Dose [id number] 10/03/2021 13 4 of 4 250 cGy 1,000 cGy [id number] 09/26/2021 6 5 of 5 520 cGy 2,600 cGy Reference Point Last Treated On Elapsed Days Session Dose Total Dose [id number] 10/03/2021 13 250 cGy 3,600 cGy [id number] 09/26/2021 6 520 cGy 2,600 cGy Treatment [...] was developed by a multidisciplinary team of [facility] cancer providers to help you understand, discuss, [...] Domi Alvarado M.D. (Breast Clinic) Nettie Templeton APRN, C.N.PSukhjinder (Breast Survivorship Clinic) Delisa Mcarthur M.S., [facility] (Clinical Genomics) Shashi Cheema M.D. (Breast Surgery) Al Biswas M.D. (Radiation Oncology) Cancer Diagnosis and Staging Information Diagnosis Cancer Breast Ductal In Situ Left Diagnosis date 07/18/2021 Staging information Cancer Staging Cancer Breast Ductal In Situ Left Staging form: Breast, AJCC 8th Edition - Pathologic stage from 08/04/2021: Stage 0 (pTis (DCIS), cN0, cM0, G3, ER+, NV+) Genetic Testing Performed Ms. Raza was originally seen in the Department of Clinical Genomics on 06/28/2021 due to her personal history of breast cancer and family history of cancer. At this visit, the patient elected to pursue the STAT Breast Cancer Panel, the Colorectal Cancer Panel and the Breast Cancer Panel through [facility]. Genetic testing included sequence analysis and gross [...] panel and the Colorectal Cancer panel through [facility]. 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 08/04/2021 Surgery and Procedures Left breast seed localized lumpectomy was performed by Dr. Shashi Cheema. PATHOLOGY: A. Breast, left, lumpectomy: Ductal carcinoma in situ (DCIS), high nuclear grade, involving an area 12 x 9 x 8 mm. All margins, [id number] of the anterior and superior margins (parts [...] 1-2 weeks. Referral to Radiation Oncology in [place] to be scheduled in mid August after the patient returns from her planned trip to [facility]. 08/17/2021 Other Breast Clinic appointment with Dr. Domi Alvarado who discussed the role for adjuvant endocrine therapy in ER positive DCIS. Plan to begin exemestane after radiation therapy. 09/20/2021 - Radiation Therapy Radiation Therapy Treatment Details (Noted on 08/16/2021) Site: Left Breast Technique: 3D FORM SETTER SUPERVISOR Goal: Curative Planned Treatment Start Date: 09/20/2021 Schedule of Surveillance Testing and Visits The basis for the surveillance testing schedule and test recommendations in this section are largely based on guidelines from the [place] [employer] Clinical On[employer] (ASCO), the biggest [...] your life, including relationships, school, work, and long term plans. Anger is a normal response to [...] you, such as physical therapists, occupational therapists, draw off worker, or mental health care providers Coping With [...] spiritual framework. -Talk with your spiritual or strategic marketing leader to help guide you through some of the questions raised by your illness. -Consider using the Health Technical Writer staff at [facility] to help you with your spiritual [...] fat tissue -Talking to a dietitian or emotional support teacher who can help you plan a healthy [...] care provider to refer you to a [facility] social media senior associate. He or shecan give you workplace information. [...] disability to have equal opportunities. A social media senior associate can help you look at your situation [...] your doctor to help you quit. The [facility] can help. Stress [...]
--- OUTSIDE RECORDS SUMMARY | 2024-03-19 10:29 | XMS_ITS | Encounter Summary ---
Author Organization [facility] Address [address] [place] [id number] Care Team Providers Care Custom Leather Products Maker Name Role Phone Unavailable Primary Care Provider Unavailabl e Reason for Referral * Outpatient (Routine) - Authorized Specialty Diagnoses / Procedures Referred By Pamella ann Referred To Contact Diagnoses Cancer Breast Ductal In Situ Left Screening Mammogram Breast Cancer Procedures BI Breast Diagnostic Bilateral with Tomosynthesis Merlyn Sauceda APRN, CNS [address] [place] [phone] [facility] Referral ID Status Reason Start Date Expiration Date V isits Requested Visits Authorized [id number] Authorized 01/22/2024 01/21/2025 1 1 * Outpatient (Routine) - Authorized Specialty Diagnoses / Procedures Referred By Pamella ann Referred To Contact Diagnoses Cancer Breast Ductal In Situ Left Dense Breasts, Unspecified Procedures NM Molecular Breast Imaging Merlyn Sauceda APRN, CNS [address] [place] [phone] [facility] Referral ID Status Reason Start Date Expiration Date V isits Requested Visits Authorized [id number] Authorized 01/22/2024 01/21/2025 8 8 * Outpatient (Routine) - Authorized Specialty Diagnoses / Procedures Referred By Pamella ann Referred To Contact Breast Clinic Merlyn Sauceda APRN, CNS [address] [place] [phone] [facility] Referral ID Status Reason Start Date Expiration Date V isits Requested Visits Authorized [id number] Authorized 01/22/2024 07/23/2025 1 1 Scheduling Instructions PAC Reason for Visit * Reason Comments Establish Care * Outpatient (Routine) - Closed Specialty Diagnoses / Procedures Referred By Pamella ann Referred To Contact Breast Clinic Merlyn Sauceda APRN, CNS [address] [place] [phone] [facility] Referral ID Status Reason Start Date Expiration Date Visits Re quested Visits Authorized [id number] Closed 07/24/2023 01/22/2025 1 1 Encounter Details Date Type Department Care Team (Late st Contact Info) Description 01/22/2024 1:30 PM CDT Office Visit Breast Diagnostic Clinic in [place], [place] [address] [place] [phone] Merlyn Sauceda APRN, CNS [address] [place] [phone] Cancer Breast Ductal In Situ Left (Primary Dx); Radiation Therapy Personal History; Cancer Breast Family History; Screening Mammogram Breast Cancer; Dense Breasts, Unspecified Social History Tobacco Use Types Packs/Day Years Used Date Smoking Tobacco: Never Passive Smoke Exposure: Never Smokeless Tobacco: Never Alcohol Use Standard Drinks/Week Comments Yes 0 (1 standard drink = 0.6 oz pure alcohol) maybe one glass of wine or mixed drink a month [facility] Utilities Answer Date Recorded In the past 12 months has [facility] [place], gas, oil, or water [employer] threatened to shut off services in your [...] often do you attend chur ch or confucianist services? Never 02/14/2022 Do you belong to any clubs o r organizations such as tenriism groups, unions, fraternal or athletic groups, or [...] money to buy more. Never true 07/05/19 Within the past 12 months, t he [...] living? No 07/05/2023 Nutrition Answer Date Recorded On average, how many serving s of [...] your living situation today? I have a [facility] place to live 07/05/2023 Education Answer Date Recorded What is the highest level of school you have completed or the highest degree you have received? Bachelor's degree (e.g., BA, AB, BS) 06/20/2021 Sex and Gender Information Value Date Recorded Sex Assigned at Female 06/20/2021 7:53 PM LINE REPAIRER TOWER Gender Identity Female 06/20/2021 7:53 PM LINE REPAIRER TOWER Sexual Orientation Straight 06/20/2021 7: 53 PM LINE REPAIRER TOWER documented as of this encounter Last Filed Vital Signs Vital Sign Reading Time Taken Comments Blood Pressure 125/72 01/22/2024 1:19 PM CDT Pulse 54 01/22/2024 1:19 PM CDT Temperature - - Respiratory Rate - - Oxygen Saturation - - Inhaled Oxygen Concentration - - Weight 94 kg (207 lb 5.5 oz) 01/22/2024 1:19 PM CDT Height 163.1 cm (5' 4.21) 01/22/2024 1:19 PM CD T Body Mass Index 35.35 01/22/2024 1:19 PM CDT documented in this encounter Progress Notes * Merlyn Sauceda, ETHNOARCHAEOLOGIST, MANAGER RESPIRATORY - 01/22/2024 1:30 PM CDT CHIEF COMPLAINT / REASON FOR VISIT History of left breast cancer HISTORY OF PRESENT ILLNESS Joleen Raza is a 63 y.o. female from [place], [place]. Her breast cancer history is as [...] panel and the Colorectal Cancer panel through [facility]. 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 08/04/2021 Surgery and Procedures Left breast seed localized lumpectomy was performed by Dr. Shashi Cheema. PATHOLOGY: A. Breast, left, lumpectomy: Ductal carcinoma in situ (DCIS), high nuclear grade, involving an area 12 x 9 x 8 mm. All margins, [id number] of the anterior and superior margins (parts [...] 1-2 weeks. Referral to Radiation Oncology in [place] to be scheduled in mid August after [...] - 10/03/2021) Site: Left Breast Technique: 3D PRODUCTION TECHNOLOGIST Goal: Curative Planned Treatment Start Date: 09/20/2021 Dose: 2600 cGy in 5 fractions, 1000 cGy boost to the lumpectomy cavity in 4 fractions for a total of 3600 in 9 fractions History: Mrs. Raza has been busy with a recent production and found that it was easier to eat better with less snacking. She has lost about 10 kg since I saw her last. Overall she notes no new health concerns. She has had no new breast concerns. She denies any new constitutional symptoms such as unexplained weight loss, fevers, night sweats, bone pain, persistent cough, abdominal pain, or headaches. SOCIAL Mrs. Raza is with two adult daughters. 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 Nonsmoker. Rare alcohol use. OBJECTIVE PHYSICAL EXAM General: Pleasant woman in no acute distress. BMI 35.4. Lymph: No palpable submandibular, submental, cervical, supraclavicular, infraclavicular, or axillary adenopathy. Skin: Warm and dry with normal turgor. Extremities: Good range of motion of both shoulders. No overt signs of upper extremity lymphedema. Breasts: Breasts are mostly symmetric. Overlying skin is unremarkable other than insect bite at themedial right breast. A well-healed scar is noted at the left inframammary fold from previous dermatology biopsy. A scar at the inferolateral left breast is from the wide local excision. Nipples are everted with no evidence of nipple discharge or lesions. Palpation reveals no dominant masses or nodularity. Wt Readings from Last 6 Encounters: 01/22/24 94 kg 07/24/23 104 kg 12/25/22 101 kg 06/11/22 95.6 kg 02/15/22 94.3 kg 09/27/21 96.5 kg ASSESSMENT/PLAN #1 Cancer Breast Ductal In Situ Left #2 Radiation Therapy Personal History #3 Cancer Breast Family History #4 Screening Mammogram Breast Cancer #5 Dense Breasts, Unspecified Clinical examination today was satisfactory and stable. No breast imaging was scheduled for today. I congratulated Mrs. Raza on her successful weight loss. I certainly wish her continued success. BREAST CLINIC RECOMMENDATIONS: 1. Monthly breast observation and palpation. Please report any changes promptly. 2. Clinical breast/chest wall examination every six months for 3-5 years and then annually. Will plan to return in December 2023. 3. Breast imaging: Annual bilateral diagnostic mammogram, due May 2024. Follow-up MBI (molecular breast imaging), May 2024. PATIENT EDUCATION Ready to learn, no apparent learning barriers were identified; learning preferences include listening. Explained diagnosis and treatment plan; patient expressed understanding of the content. documented in this encounter Plan of Treatment Upcoming Encounters Date Type Department Care Team (Latest Contact Info) Description 07/02/2024 12:30 PM LINE REPAIRER TOWER Clinical Communication Virtual Review in [place], [place] [address] [place] [phone] 07/03/2024 9:30 AM LINE REPAIRER TOWER Office Visit Breast Diagnostic Clinic in [place], [place] [address] [place] [phone] Merlyn Sauceda APRN, NICK [address] [place] [phone] Scheduled Orders Name Type Priority Associated Diagnoses Order Schedule NM Molecular Breast Imaging Imaging RAD - Routine (most inpatients and all outpatients) Cancer Breast Ductal In Situ Left Density Breast Expected: 06/17/2024 (Approximate), Expires: 01/21/2025 BI Breast Diagnostic Bilateral with Tomosynthesis Imaging RAD - Routine (most inpatients and all outpatients) Cancer Breast Ductal In Situ Left Screening Mammogram Breast Cancer Expected: 06/17/2024 (Approximate), Expires: 01/21/2025 Scheduled Referrals Name Type Priority Associated Diagnoses Orde r Schedule Breast Clinic office visit (clinic) Outpatient Referral Routine Expected: 06/17/2024 (Approximate), Expires: 01/21/2025 documented as of this encounter Visit Diagnoses Diagnosis Cancer Breast Ductal In Situ Left- Primary Radiation Therapy Personal History Cancer Breast Family History Screening Mammogram Breast Cancer Dense Breasts, Unspecified documented in this encounter
--- OUTSIDE RECORDS SUMMARY | 2024-03-19 10:29 | XMS_ITS | Clinical Summary ---
Author Organization [facility] Address [address] [place] [address] Care Team Providers Care Shoe Repairer Apprentice Name Role Phone Unavailable Primary Care Provider Unavailabl e Source Comments Patient records contain information from all sites at [facility]. For routine questions regarding patient records, call [phone] during business hours, M-F 8:00 AM - 5:00 PM Central Time. Record requests for emergency care only can be directed to [phone] at any time.[facility] Allergies No known active allergies Medications Medication Sig Dispensed Refills Start Date End Date Status lisinopriL (PRINIVIL,ZESTRIL) 10 mg tablet Take 1 tablet by mouth daily. 11/09/2016 Active multivitamin tablet Take 1 tablet by mouth daily. 08/09/2011 Active vit C/vit E/lutein/min/omega-3 (OCUVITE ORAL) Take 1 tablet by mouth daily. Active calcium carb/vit D3/minerals (CALCIUM-VITAMIN D ORAL) Take 1 tablet by mouth daily. 600 mg with D3 Active omega 8-qmb-jzf-fish oil 1,000 mg (120 mg-180 mg) capsule Take 1 capsule by mouth every other day. 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 07/18/2021 Cancer Staging:Pathologic stage from 08/04/2021:Stage 0(pTis (DCIS), cN0, cM0, G3, ER+, NH+) - Unsigned Migraine Headache 06/15/2021 Deficiency Vitamin D 06/15/2021 Hypertension Essential Primary 06/15/2021 Encounters Date Type Department Care Team Description 01/22/2024 1:30 PM CDT Office Visit Breast Diagnostic Clinic in [place], [place] [address] [place] [phone] Merlyn Sauceda, HYDROGEN POWER PLANT ENGINEER, DRY HEAT ROOM ATTENDANT Cancer Breast Ductal In Situ Left (Primary Dx); Radiation Therapy Personal History; Cancer Breast Family History; Screening Mammogram Breast Cancer; Dense Breasts, Unspecified 01/15/2024 10:00 AM CDT Clinical Communication Virtual Review in [place], [place] [address] [place] [phone] from Last 3 Months Immunizations Name Administration Dates Next Due HepB Adult 04/07/2019,01/22/2003 HepB, Unspecified 07/11/2023(Deferred: Other - up to date) Influenza, Injectable, Mdck, Preservative Free, Quadrivalent 03/21/2023 Influenza, Seasonal, Injectable 04/11/2011 PCV20 07/11/2023(Deferred: Other - not up to date. would like information) PPSV23 12/24/2017 RZV (SHINGRIX) 09/26/2018,12/24/2017 SARS-COV-2 (COVID-19) - PFIZ ER [id number] (12 YEARS OR OLDER) 03/21/2023 Tdap 12/24/2017,11/20/2006 influenza vaccine QV(FLUBLOK ) (18 years or older) (PF) 04/07/2019 influenza vaccine quad (FLUZONE/FLUARIX) (6 months and older)(PF) 04/23/2022,04/06/2021,04/30/2018 Family History Medical History Relation Name Comments ADD Daughter 1 Cheryl Ry Anxiety disorder Daughter 1 Cheryl Ry Depression Daughter 1 Cheryl Ry ADD Daughter 2 Renzo Ry ADD Daughter 3 Cheryl Ry Anxiety disorder Daughter 3 Cheryl Ry Depression Daughter 3 Cheryl Ry Heart attack Father Angel Luis Renee in his 90' s Hyperlipidemia Father Angel Luis Renee Hypertension Father Angel Luis Renee Breast cancer Mother Renzo Renee in 1989 a t age 54 Obesity Mother Renzo Renee Diabetes Paternal Grandmother Maida David Sleep apnea Sister 1 Neetu Oswald No Known Problems Sister 2 Chace Relation Name Status Comments Daughter 1 Cheryl Raza Daughter 2 Renzo Raza Daughter 3 Cheryl Raza Father Angel Luis Renee Maternal Grandfather Maternal Grandmother Mother Renzo Renee Paternal Grandfather Paternal Grandmother Maida David Sister 1 Neetu Oswald Alive Sister 2 Chace Alive Social History Tobacco Use Types Packs/Day Years Used Date Smoking Tobacco: Never Passive Smoke Exposure: Never Smokeless Tobacco: Never Alcohol Use Standard Drinks/Week Comments Yes 0 (1 standard drink = 0.6 oz pure alcohol) maybe one glass of wine or mixed drink a month [facility] [employer]ities Answer Date Recorded In the past 12 months has e [employer], gas, oil, or water [employer] threatened to shut off services in your [...] often do you attend chur ch or presybeterian services? Never 02/14/2022 Do you belong to [...] medical care, and heating? Patient declined 02/14/2022 [facility] - [...] your living situation today? I have a [facility] place to live 07/05/2023 Education Answer Date Recorded What is the highest level of school you have completed or the highest degree you have received? Bachelor's degree (e.g., BA, AB, BS) 06/20/2021 Sex and Gender Information Value Date Recorded Sex Assigned at Female 06/20/2021 7:53 PM HORIZONTAL RESAW OPERATOR Gender Identity Female 06/20/2021 7:53 PM HORIZONTAL RESAW OPERATOR Sexual Orientation Straight 06/20/2021 7: 53 PM HORIZONTAL RESAW OPERATOR Last Filed Vital Signs Vital Sign Reading Time Taken Comments Blood Pressure 125/72 01/22/2024 1:19 PM CDT Pulse 54 01/22/2024 1:19 PM CDT Temperature 36.4 ??C (97.5 ??F) 09/27/2021 3:19 PM CD T Respiratory Rate 14 08/04/2021 3:36 PM HORIZONTAL RESAW OPERATOR Oxygen Saturation 99% 08/04/2021 3:36 PM HORIZONTAL RESAW OPERATOR Inhaled Oxygen Concentration - - Weight 94 kg (207 lb 5.5 oz) 01/22/2024 1:19 PM CDT Height 163.1 cm (5' 4.21) 01/22/2024 1:19 PM CD T Body Mass Index 35.35 01/22/2024 1:19 PM CDT Plan of Treatment Upcoming Encounters Date Type Department Care Team (Latest Contact Info) Description 07/02/2024 12:30 PM HORIZONTAL RESAW OPERATOR Clinical Communication Virtual Review in [place], [place] [address] [place] [phone] 07/03/2024 9:30 AM HORIZONTAL RESAW OPERATOR Office Visit Breast Diagnostic Clinic in [place], [place] [address] [place] [phone] Merlyn Sauceda, HYDROGEN POWER PLANT ENGINEER, DRY HEAT ROOM ATTENDANT [address] [place] [phone] Health Maintenance Due Date Last Done Comments [...] 04/07/2019, 01/22/2003 Depression Screening (Annual PHQ-2) 07/01/2023 Influenza Vaccine (#1) 2024 , 04/23/2022, 04/06/2021, Additional history exists Cervical Cancer Screening 06/07/20242020 (Performed elsewhere), 04/07/2019 Mammogram 06/17/2024 06/17/2023, 05/31, 06/22/2021, Additional history exists Office Visit for Blood Pressure Check / Re-check 01/21/2025 01/22/2024 DTaP,Tdap,and Td Vaccines (3 - Td or Tdap) 12/25/2027 12/24/2017, 11/20/2006 Colonoscopy 10/04/2031 10/03/2021 (Perf ormed elsewhere) Colorectal Cancer Screening 10/04/2031 Zoster Vaccines Completed 09/26/2018, 12/24/2017 COVID-19 Vaccine Completed 12/23/2023, , 11/05/2022, Additional history exists HPV Vaccines Aged Out No longer eligi ble based on patient's age to complete this topic Medical Devices Implanted Type Area Instrument Shop Supervisor Device Identifier Shelf Expiration Date Model / Serial / Lot Clp Hrzn Ti 6 Clp Herminio - [id number] Implanted:Qty: 1 on 08/04/2021 by Shashi Cheema M.D. at [facility] Hardware e.g. pins/screws/r ods [employer] [id number] / / Clp Hrzn Ti 6 Clp Red - [id number] Implanted:Qty: 1 on 08/04/2021 by Shashi Cheema M.D. at [facility] Hardware e.g. pins/screws/r ods [employer] [id number] / / Procedures Procedure Name Priority Date/Time Associated Diagnosis Comments BI BREAST DIAGNOSTIC BILATERAL WITH TOMOSYNTHESIS RAD - Routine (most inpatients and all outpatients) 06/17/2023 2:19 PM HORIZONTAL RESAW OPERATOR Cancer Breast Personal History Screening Mammogram Breast Cancer from Last 3 Months or Most Recently Relevant to Health Maintenance Results * BI Breast Diagnostic Bilateral with Tomosynthesis (06/17/2023 2:19 PM HORIZONTAL RESAW OPERATOR) Anatomical Region Laterality Modality Breast, Breast Imaging RST L OS, Breast Imaging ARZ LOS, Breast Imaging FLA LOS Bilateral Mammography 06/17/2023 2:35 PM HORIZONTAL RESAW OPERATOR Impressions 06/17/2023 2:51 PM HORIZONTAL RESAW OPERATOR No mammographic findings of malignancy. RECOMMENDATION: ??Resume Routine Mammogram Annual diagnostic mammography is recommended for the 1st 5 years following breast conservation therapy. ASSESSMENT: ??BI-RADS: 1: Negative. Narrative 06/17/2023 2:51 PM HORIZONTAL RESAW OPERATOR EXAM: ??BI BREAST DIAGNOSTIC BILATERAL WITH [...] conservation therapy. ASSESSMENT: BI-RADS: 1: Negative. Laura S Salik HYDROGEN POWER PLANT ENGINEER, C.N.P., M.S.N. IMG B I PROCEDURES from Last 3 Months or Most Recently Relevant to Health Maintenance Advance Directives For more information, please contact: [phone] * Full Code (Latest Code Status on File) Date Activated Date Inactivated Comments 08/04/2021 8:10 AM 08/04/2021 7:57 PM Question Answer Comments Full Code: Not Discussed Due to: Not medically appropriate
--- OUTSIDE RECORDS SUMMARY | 2024-03-19 10:29 | XMS_ITS | Clinical Summary ---
Author Organization [facility] Address [place], [place] [address] Care Team Providers Care Lighting Fixtures Decorator Name Role Phone Pcp, No Primary Care [...] TABLET BY MOUTH ONCE DAILY. 30 tablet 11/09/2016 Active Active Problems Problem Noted Date Diagnosed Date Vitamin D deficiency 10/06/2013 Screen for colon cancer 05/22/2011 Overview (05/22/2011): Colonoscopy 05/2011 normal repeat in 10 years HTN (hypertension) 03/29/2011 Migraine NOS/not intrcbl, intermittent 1 Immunizations Name Administration Dates Next Due [...] Outcome GA Total Labor Labor/2nd/3rd Weight Sex Type Anes PTL Marcia A1 A5 Name Clin Para Para Last Filed Vital Signs Vital Sign Reading Time Taken Comments Blood Pressure 157/93 11/07/2015 12:33 PM CDT Pulse 76 11/07/2015 12:33 PM CDT Temperature 36.6 ??C (97.9 ??F) 02/17/2015 5:34 PM CD T Respiratory Rate 20 05/24/2008 8:30 AM HAND SPRING REPAIRER HELPER Oxygen Saturation 96% 11/01/2015 8:35 AM CDT Inhaled Oxygen Concentration - - Weight 97.8 kg (215 lb 9.6 oz) 11/01/2015 8:35 A M CDT Height 163.8 cm (5' 4.5) 11/01/2015 8:35 AM CDT Body Mass Index 36.44 11/01/2015 8:35 AM CDT Plan of Treatment Health Maintenance Due Date Last Done Comments HIV for age 15-65 12/29/1975 Hepatitis C [...] 04/07/2022 9, 04/07/2019, 11/01/2015, Additional history exists COVID-19 vaccine series (2022- season) 2024 Influenza for age 50-64 03/01/2024 04/08/2014, 04/11 Tdap Completed 11/20/2006 Pneumococcal series for age 6-64 Aged Out No longer eligible based on patient's age to complete this topic Procedures Procedure Name Priority Date/Time Associated Diagnosis Comments MERCHANDISE MANAGER THIN PREP PAP SCREEN IMAGED Routine 04/07/2019 1:15 PM CDT XR MAMMO BILAT SCREEN FFDM (IA) Routine 04/05/2016 8:43 AM CDT Visit for screening mammogram LIPID PANEL W REFLEX MEASURED LDL Routine 10/06/2013 10:27 AM CDT Screening, lipid from Last 3 Months or Most Recently Relevant to Health Maintenance Results * MERCHANDISE MANAGER THIN PREP PAP SCREEN IMAGED (04/07/2019 1:15 PM CDT) Case Report Gynecologic Cytology Report ? Case: [id number] ? Authorizing Provider: ??Rhiannon Dawn MD ??Collected: ? 04/07/2019 1315 ? Ordering Location: ? [facility] ?Received: ?04/09/2019 1534 ? First Screen: ?Tatianna Salmon ? Specimen: ?MERCHANDISE MANAGER ThinPrep Vial Screening, Cervical/Vaginal ? 04/21/2019 6:21 PM CDT [facility] INTERPRETATION/ RESULT NEGATIVE FOR INTRAEPITHELIAL LESION OR MALIGNANCY (NIL) (none) 04/21/2019 6:21 PM T [facility] IMEN ADEQUACY Satisfactory for evaluation Endocervical component present 04/21/2019 6:21 PM CDT [facility] HPV REQUEST HPV and PAP 04/21/2019 6:21 PM CDT [facility] Menstrual Status 04/21/2019 6:21 PM T [facility] Comment:Menopause Automated Review Successful 04/21/2019 6:21 PM CDT [facility] Comment:Specimen processed s uccessfully by automated frame changer device, ThinPrep Imaging System, [employer] ANCILLARY TESTING MERCHANDISE MANAGER HPV Ordered, Please see separate report 04/21/2019 6:21 PM T [facility] Note The pap test is a screening technique, not a diagnostic procedure. ??It is used primarily to screen for squamous cancers and precursor lesions. ??Published studies have shown that it is subject to both false negative and false positive results. ??The pap test should not be used as the sole means to diagnose or exclude pre-malignant and malignant lesions. Cytology is screened and interpreted at [facility] - [address], [place] [address] and [facility] - [address]; [place] [address] and [facility] [place] - [address]; [place] [address] and [facility] [address]; [place] [address] 04/21/2019 6:21 PM CDT [facility] Other (Cervical/Vagina l) 04/07/2019 1:15 PM CDT 04/09/2019 3:34 PM CDT Rhiannon Dawn MD PATHOLOGY/[facility] [address] [place] [address], [place] * XR MAMMO BILAT SCREEN FFDM (04/05/2016 8:43 AM CDT) Anatomical Region Laterality Modality BREASTS, Breast Left, Breast Right Bilateral Mammography Impressions 04/05/2016 12:18 PM CDT ??There is no radiographic evidence for malignancy. ??Recommend annual mammograms. A lay language report of this examination will be provided to the patient. MAMMOGRAM ASSESSMENT: ??ACR 2 Benign Narrative 04/05/2016 12:18 PM CDT XR MAMMO BILAT SCREEN FFDM [G0202.0] CLINICAL HISTORY: ??This is an asymptomatic 55 y.o. patient. INDICATION FOR EXAM: Mammogram Screening. TECHNIQUE: CC & MLO views were obtained. ??This digital study was evaluated with the assistance of Computer-Aided Detection. COMPARISON FILMS: Yes 04/04/15 [facility] 04/02/14 [facility] FINDINGS: ??Mammographically, the breast tissue is heterogeneously dense, which could obscure detection of small masses. ??No suspicious masses or microcalcifications. ??Benign appearing calcifications within both breasts, Benign appearing asymmetry within right breast and Intramammary lymph node within both breasts. Freda Buchanan SUBSTATION OPERATOR APPRENTICE MAMMO * LIPID PANEL W REFLEX MEASURED LDL (10/06/2013 10:27 AM CDT) CHOLESTEROL,TOTAL 194 100 - 199 mg/dL 10/06/2013 11:42 AM CDT [facility] TRIGLYCERIDES 131 <150 mg/dL 10/06/2013 11:42 AM CDT [facility] HDL CHOLESTEROL 54 >40 mg/dL 4 11:42 AM CDT [facility] NON-HDL CHOLESTEROL 140 <145 mg/dl 10/06/2013 11:42 AM CDT [facility] CHOL/HDL RATIO 3.59 <4.50 10/06/2013 11:42 AM CDT [facility] LDL CHOLESTEROL 114 <=130 mg/dL 10/06/2013 11:42 AM CDT [facility] PATIENT STATUS FASTING 10/06/2013 11:42 AM CDT [facility] Blood specimen (specimen) BLOOD SPECIMEN / Unknown Venipuncture / Unknown 10/06/2013 10:27 AM CDT 10/06/2013 10:27 AM CDT Freda Buchanan NP CHEMISTRY [facility] [address] [facility] [place] [address], from Last 3 Months or Most Recently Relevant to Health Maintenance Care Teams Lighting Fixtures Decorator Relationship Specialty Start Date End Date Pcp, No . PCP - General 06/06/18
--- OUTSIDE RECORDS SUMMARY | 2024-03-19 10:29 | XMS_ITS | Referral Summary ---
Author Organization [facility] Address [address] [place] [address] Care Team Providers Care Staff Cytotechnologist Name Role Phone Unavailable Primary Care Provider Unavailabl e Source Comments Patient records contain information from all sites at [facility]. For routine questions regarding patient records, call [phone] during business hours, M-F 8:00 AM - 5:00 PM Central Time. 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 600 mg with D3 Active omega 3-brv-xik-fish oil 1,000 mg (120 mg-180 mg) capsule Take 1 capsule by mouth every other day. 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 would like information) PPSV23 12/24/2017 RZV (SHINGRIX) 09/26/2018,12/24/2017 SARS-COV-2 (COVID-19) - [facility] [id number] (12 YEARS OR OLDER) 03/21/2023 Tdap 12/24/2017,11/20/2006 [...] of wine or mixed drink a month [facility] Utilities Answer Date Recorded In the past 12 months has [employer], oil, or water company threatened to shut off services in your [...] often do you attend chur ch or pentecostal services? Never 02/14/2022 Do you [...] medical care, and heating? Patient declined 02/14/2022 [facility] [place] of Occupat ional Health - Occupational Stress [...] your living situation today? I have a [facility] place to live 07/05/2023 Education Answer Date Recorded What is the highest level of school you have completed or the highest degree you have received? Bachelor's degree (e.g., BA, AB, BS) 06/20/2021 Sex and Gender Information Value Date Recorded Sex Assigned at Female 06/20/2021 7:53 PM INDUCTION MACHINE OPERATOR Gender Identity Female 06/20/2021 7:53 PM INDUCTION MACHINE OPERATOR Sexual Orientation Straight 06/20/2021 7: 53 PM INDUCTION MACHINE OPERATOR Last Filed Vital Signs Vital Sign Reading Time Taken Comments Blood Pressure 125/72 01/22/2024 1:19 PM CDT Pulse 54 01/22/2024 1:19 PM CDT Temperature 36.4 ??C (97.5 ??F) 09/27/2021 3:19 PM CD T Respiratory Rate 14 08/04/2021 3:36 PM INDUCTION MACHINE OPERATOR Oxygen Saturation 99% 08/04/2021 3:36 PM INDUCTION MACHINE OPERATOR Inhaled Oxygen Concentration - - Weight 94 kg (207 lb 5.5 oz) 01/22/2024 1:19 PM CDT Height 163.1 cm (5' 4.21) 01/22/2024 1:19 PM CD T Body Mass Index 35.35 01/22/2024 1:19 PM CDT Plan of Treatment Upcoming Encounters Date Type Department Care Team (Latest Contact Info) Description 07/02/2024 12:30 PM INDUCTION MACHINE OPERATOR Clinical Communication Virtual Review in [place], [place] [address] [place] [address] 07/03/2024 9:30 AM INDUCTION MACHINE OPERATOR Office Visit Breast Diagnostic Clinic in [place], [place] [address] [place] [phone] Merlyn Sauceda, MEDICAID BILLER, DIRECTOR OF PSYCHIATRY [address] [place] [phone] Medical Devices Implanted Type Area Non Emergency Services Ambulance Driver Device Identifier Shelf Expiration Date Model / Serial / Lot Clp Hrzn Ti 6 Oralia Sorto Herminio - [id number] Implanted:Qty: 1 on 08/04/2021 by Shashi Cheema M.D. at [facility] Hardware e.g. pins/screws/r ods [employer] [id number] / / Clp Hrzn Ti 6 Clp [facility] - [id number] Implanted:Qty: 1 on 08/04/2021 by Shashi Cheema M.D. at [facility] Hardware e.g. pins/screws/r ods [employer] Speakap / / Procedures Procedure Name Priority Date/Time Associated Diagnosis Comments BI BREAST DIAGNOSTIC BILATERAL WITH TOMOSYNTHESIS RAD - Routine (most inpatients and all outpatients) 06/17/2023 2:19 PM INDUCTION MACHINE OPERATOR Cancer Breast Personal History Screening Mammogram Breast Cancer from Last 3 Months or Most Recently Relevant to Health Maintenance Results * BI Breast Diagnostic Bilateral with Tomosynthesis (06/17/2023 2:19 PM INDUCTION MACHINE OPERATOR) Anatomical Region Laterality Modality Breast, Breast Imaging RST L OS, Breast Imaging ARZ LOS, Breast Imaging FLA LOS Bilateral Mammography 06/17/2023 2:35 PM INDUCTION MACHINE OPERATOR Impressions 06/17/2023 2:51 PM INDUCTION MACHINE OPERATOR No mammographic findings of malignancy. RECOMMENDATION: ??Resume Routine Mammogram Annual diagnostic mammography is recommended for the 1st 5 years following breast conservation therapy. ASSESSMENT: ??BI-RADS: 1: Negative. Narrative 06/17/2023 2:51 PM INDUCTION MACHINE OPERATOR EXAM: ??BI BREAST DIAGNOSTIC BILATERAL [...] APRN C.N.P., M.S.N. IMG B I PROCEDURES from Last 3 Months or Most Recently Relevant to Health Maintenance Advance Directives For more information, please contact: [phone] * Full Code (Latest Code Status on File) Date Activated Date Inactivated Comments 08/04/2021 8:10 AM 08/04/2021 7:57 PM Question Answer Comments Full Code: Not Discussed Due to: Not medically appropriate
--- OUTSIDE RECORDS SUMMARY | 2024-03-19 10:29 | XMS_ITS ---
Author Organization [facility] Address [address] [place] [address] Care Team Providers Care Lockstitch Sleeve Setter Name Role Phone Unavailable Unavailable Unavailable Surgery Details Not on file Complications Check Surgery Details section. Procedure Estimated Blood Loss Check Surgery Details section. Procedure Findings Check Surgery Details section. Procedure Specimens Taken Check Surgery Details section.
--- OUTSIDE RECORDS SUMMARY | 2024-03-19 10:29 | XMS_ITS | Encounter Summary ---
Author Organization [facility] Address [address] [place] [address] Care Team Providers Care Hotel Maintenance Worker Name Role Phone Unavailable Primary Care Provider Unavailabl e Encounter Details Date Type Department Care Team (Latest Contact Info) Description 01/15/2024 10:00 AM CDT Clinical Communication Virtual Review in [place], [place] [address] [place] [address] Social History Tobacco Use Types Packs/Day Years Used Date Smoking Tobacco: Never Passive Smoke Exposure: Never Smokeless Tobacco: Never Alcohol Use Standard Drinks/Week Comments Yes 0 (1 standard drink = 0.6 oz pure alcohol) maybe one glass of wine or mixed drink a month [facility] Everywhereities Answer Date Recorded In the past 12 months has [facility] [employer], gas, oil, or water [employer] threatened to shut off services in your [...] often do you attend chur ch or hoahaoism services? Never 02/14/2022 Do you belong to any clubs o r organizations such as religious groups, unions, fraternal or athletic groups, or [...] your living situation today? I have a [facility] place to live 07/05/2023 Education Answer Date Recorded What is the highest level of school you have completed or the highest degree you have received? Bachelor's degree (e.g., BA, AB, BS) 06/20/2021 Sex and Gender Information Value Date Recorded Sex Assigned at Female 06/20/2021 7:53 PM EMT/PARAMEDIC Gender Identity Female 06/20/2021 7:53 PM EMT/PARAMEDIC Sexual Orientation Straight 06/20/2021 7: 53 PM EMT/PARAMEDIC documented as of this encounter Plan of Treatment Upcoming Encounters Date Type Department Care Team (Latest Contact Info) Description 07/02/2024 12:30 PM EMT/PARAMEDIC Clinical Communication Virtual Review in [place], [place] [address] [place] [address] 07/03/2024 9:30 AM EMT/PARAMEDIC Office Visit Breast Diagnostic Clinic in [place], [place] [address] [place] [phone] Merlyn Sauceda, COATING MIXER TENDER, FIREARMS SALES ASSOCIATE [address] [place] [phone] documented as of this encounter Visit Diagnoses Not on filedocumented in this encounter
[2024-03-21 02:36] LABS: HPV Source Cervix; HPV, High Risk by TMA Not Detected
== END 2024-03-19 10:27 | disposition home or self-care (01) ==
PROVIDERS: PCP Family Medicine; Visit Provider Physician Assistant
DX: Z12.4 Encounter for screening for malignant neoplasm of cervix (principal)
CPT/HCPCS: 87624; 87625; 88141; 88142

== ENCOUNTER 2024-07-23 11:04 | Outpatient (CLI) | payer MEDICAID, SELFPAY | END 2024-07-23 11:05 | disposition home or self-care (01) | LOC: NFLDREF 08-02 23:30 | PROVIDERS: PCP Family Medicine; Referring Provider Family Medicine; Visit Provider Family Medicine | DX: E78.5 Hyperlipidemia, unspecified (principal); I10 Essential (primary) hypertension | CPT/HCPCS: 80053; 80061 ==

== ENCOUNTER 2024-10-05 09:55 | Outpatient (CLI) | payer MEDICAID, SELFPAY ==
--- NOTE | 2024-10-05 10:15 | MR_ITS ---
EXAM: MRI of the RIGHT KNEE, without contrast CLINICAL HISTORY: Ongoing right knee pain. Evaluate for medial meniscal tear. COMPARISONS: Plain radiographs 07/30/2024. TECHNICAL: MR sequences of the right knee: sagittals: PD, PDFS coronals: PD, STIR axials: PD, T2 FS CONTRAST: None SEDATION: None FINDINGS: Bones: No fracture, bone marrow contusion, or other suspicious bone marrow signal abnormality. 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 Retinacula: The medial and lateral retinacula are intact. Fat pads: The infrapatellar, quadriceps, and prefemoral fat pads are unremarkable. Knee joint: Effusion: Small right knee joint effusion. Popliteal cyst: Large perforated popliteal cyst. Intra-articular bodies: None. Posteromedial corner: The semimembranosus and pes anserine tendons are intact. Medial compartment: Medial meniscus: Intact. Cartilage: Intact. Lateral compartment: Lateral meniscus: Ill-defined free edge tearing from the anterior horn/body junction through posterior horn of the lateral meniscus measuring 3.0 cm in length. 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 Ligaments: Anterior cruciate ligament: Intact. Posterior cruciate ligament: Intact. Medial collateral ligament: Intact. Posterior oblique ligament: Intact. Fibular collateral ligament: Intact. Posterolateral corner: The distal biceps femoris tendon, iliotibial band, popliteus tendon, popliteus muscle, popliteofibular ligament, and arcuate ligament are intact. Extensor mechanism: Patellar tendon: Intact. Quadriceps tendon: Intact. IMPRESSION: 1. 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 2. Ill-defined free edge tearing from the anterior horn/body junction through posterior horn of the lateral meniscus measuring 3.0 cm in length. 3. Small right knee joint effusion. Large perforated popliteal cyst. 4. No ligamentous injury or medial meniscal tear of the right knee. RCB Electronically signed on 10/05/2024 1:18:00 PM by Cameron Bentley M.D.
== END 2024-10-05 09:56 | disposition home or self-care (01) ==
LOC: MRI 09:55
PROVIDERS: PCP Family Medicine; Visit Provider Orthopaedic Surgery
DX: M25.561 Pain in right knee (principal); M22.41 Chondromalacia patellae, right knee; S83.281A Other tear of lateral meniscus, current injury, right knee, initial encounter; M25.461 Effusion, right knee
CPT/HCPCS: 73721

== ENCOUNTER 2024-10-13 16:00 | Outpatient (RCR) | payer MEDICAID, SELFPAY ==
--- NOTE | 2024-08-04 11:47 | PT.OPEX ---
PT [place] Outpatient Eval PT [facility] Outpatient Eval Start: 08/04/24 09:44 Freq: Status: Active Protocol: Document 08/04/24 09:45 MRS (Rec: 08/04/24 11:40 MRS No Response) E-signed By Karyna Holt DPT Physical Therapy Outpatient Evaluation Insurance Information Recert Due Date 11/01/24 Insurance Name [employer] Medical Diagnosis Right knee pain Treating Diagnosis Pain in Right Knee M25.561 Imaging Report Information XR R knee= Mild tricompartmental degenerative joint disease. Referring MD Rhiannon Dawn MD Subjective Preferred Name Joleen Subjective Joleen woke up with pain on July 20. No specific injury recalled. The day prior to experiencing pain, Joleen walked around a museum complex for a long distance. Joleen woke up the next morning and had incredible pain that made it difficult to walk. Joleen tried to walk it off but was only able to walk for a couple of blocks. Pain has gradually gotten better but has not gone away. Joleen reports right leg stiffness that has improved. Prior to knee pain, Joleen was walking for at least a mile 6 days a week but she has not been able to resume walking program due to knee pain. Aggravating factors:?walking, stairs with going down being worse, and getting out of chair. 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 Feel good again. 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 -Knee Flx:?129; 136 -Knee Ext:?2; -2 Hamstring length: R= ~75 degrees (difficulty keeping R knee extended) L= ~85 degrees Strength LE Strength (R/L): -Hip Ext:?4/5; 4/5 -Hip Flx:?4/5; 5/5 -Hip ER:?4+/5; 5/5 -Hip IR:?11/02; 11/02 -Hip Abd:?10/03; 4+/5 - Hip Add: 11/02; 11/02 -Knee Flx:?10/03; 11/02 -Knee Ext:?10/03 (pain); 11/02? Ankle Strength (R/L):? -DF: R: 11/02, L: 11/02? -PF (uni heel raise): R: 16 reps (discomfort), L: 16 reps? -Inv: R: 4+/5 (pain), L: 11/02? -Meryl: R: 11/02, L: 11/02? Palpation Decreased motion of R patella with lateral and medial glides compared to left patella Posture bilateral slight pes planus; knee alignment grossly appearing symmetrical with exception of slight lateral position of right patella compared to left. Other/Pertinent Objective Hip Labral:? -HOSEA: negative Knee Ligamentous:?all ligamentous testing was negative Knee Meniscus:? -Thesslay's: negative -Salvador?s:?negative -Apley?s:?positive for discomfort on right -Joint Line Palpation:? negative Grind compression test: positive on right for patellofemoral pain Assessment Assessment/Impression Joleen is a pleasant 63-year- old female who presented with c/o right knee pain that started on 07/20/24 while on vacation in [place]. No injury reported but woke up after a day of walking in museums with intense knee pain that kept her from being able to walk without pain. Since initial occurrence, Joleen's knee pain has improved but she continues to have discomfort with walking, going downstairs , and getting up from a chair. Upon examination, Joleen demonstrates decreased right knee AROM compared to left knee with right knee lacking terminal extension at 2 degrees from zero. Joleen demonstrates muscle weakness and pain most notably with R knee flexion, extension, hip abduction, and weakness with bilateral hip extension. Speical tests suggest patellofemoral dysfunction and mobility. Joleen would benefit from skilled PT treatment to improve R LE AROM , strength, and functional mobility while decreasing pain . Primary Functional Limitations impaired AROM, weakness, and pain limiting functional mobility Plan of Care Rehabilitation Potential Good Physical Therapy Goals STG's to be achieved in 2-3 weeks: 1.) Decrease pain to 4/10 at worst or less. 2.) Increase right hip strength to 4+/5 or greater. 3.) Joleen with be independent and compliant with HEP to help facilitate strengthening and while decreasing pain. LTG's to be met in 6-8 weeks: 1.) Decrease pain to 2/10 at worst or less. 2.) Increase right knee strength to 4+/5 or greater pain free. 3.) Improve right knee active range of motion 0-130 pain free. 4.) Joleen will be able to return to walking program without pain. Coordination/Communication With Referral Source Treatment Plan/Direct Interventions Gait Training,Ice/Cold/ Vasopneumatic,Joint Mobilization,Manual Therapy, Neuromuscular Re-ed, Therapeutic Activities, Therapeutic Exercises Frequency/Duration 1-2x/week for 6-8 weeks Patient Will Be Discharged From Therapy Completion of LTG(s),Skills Plateau,Independent w/HEP, Independently Progressing Evaluation Billing Untimed Code Treatment Minutes 30 PT Eval No Charge No Complexity Low Certification Information Initial Certification Date 08/04/24 Ending Certification Date 11/01/24 Provider Signature Required Yes Provider Signature Shows Agreement With POC & Medical Necessity Physician NPI Number Write NPI# Here Physician Comment/Change : Physician Signature & Date Requested Please Sign/Date Here
--- NOTE | 2024-11-05 12:58 | PT.OPDNX ---
[facility] Daily [facility] Daily Note Start: 08/04/24 09:44 Freq: Status: Active Protocol: Document 10/13/24 10:40 HLA (Rec: 10/13/24 16:53 HLA [id number]) E-signed By Colette Armando, PT, DPT PT OP Daily Progress Note Visit Information Note Type Daily Note,Recert/Progress Note Visit Number 7 Insurance Information Recert Due Date 11/01/24 Insurance Name [employer] Medical Diagnosis Right knee pain Treating Diagnosis Pain in Right Knee M25.561 Imaging Report Information MRI shows R patellofemoral and lateral compartment arthritis , R lateral meniscal tear. Referring MD Travis Mauricio Subjective Preferred Name Joleen Subjective Pt saw Dr. Mauricio, had MRI which showed R lat meniscal tear and grade IV patellar chondromalacia, R patellofemoral and lateral compartment arthritis. Surgeon discussed PT vs injection vs TKA and pt has chosen TKA. She reports she is worried about taking medications and having surgery. She states steps hurt a lot, sometimes when she walks it 'catches' and her knee moves forward and she feels as if she is going to buckle. Pain Comments pain R knee varies, from 0-8/ 10 depending on what she is doing such as stairs and walking/catching. Date of Last Physician Visit 07/30/24 Home Exercise Home Exercise Comments Access Code: [email or web address] URL: [email or web address] Date: 10/13/2024 Prepared by: Colette Armando Exercises - Clamshell - 1 x daily - 7 x weekly - 2-3 sets - 10 reps - Supine Bridge - 1 x daily - 7 x weekly - 2-3 sets - 10 reps - Modified Sunny Stretch - 1 x daily - 7 x weekly - 3 sets - 3 reps - 30 hold - Small Range Straight Leg Raise - 1 x daily - 7 x weekly - 2-3 sets - 10 reps - 5 hold - Supine Heel Slide - 1 x daily - 7 x weekly - 3 sets - 10 reps - Seated Hamstring Stretch - 1 x daily - 7 x weekly - 3 sets - 1 reps - 30 hold - Seated Long Arc Quad - 1 x daily - 7 x weekly - 3 sets - 10 reps - Gastroc Stretch on Wall - 1 x daily - 7 x weekly - 1 sets - 3 reps - 20 hold Objective Other/Pertinent Objective Hip Labral:? -HOSEA: negative Knee Ligamentous:?all ligamentous testing was negative Knee Meniscus:? -Thessaly's: negative -Salvador?s:?negative -Apley?s:?positive for discomfort on right -Joint Line Palpation:?medial knee Grind compression test: positive on right for patellofemoral pain Patient Instructed in Risks/Benefits Yes Therapeutic Exercise Therapeutic Exercise Minutes (minutes) 45 Therapeutic Exercise: To Restore - seated HF, LAQ with roll Functional Status under upper thigh x 20 Clamshell - 3 x10 reps - Sidelying hip abduction 3 x 10- reps - Supine Bridge - 3 x10 reps w / towel - Supine Active Straight Leg Raise - 2 x 10 reps, reduced to small range and also added ER 2nd set - Monster walks- 10 steps each direction x 3 w/ YTB - cues to stay in mini squat position while stepping - Seated Hamstring Stretch - 3 sets - 30 hold - Gastroc Stretch on Wall - 3 sets - 30 hold Modified sunny stretch R hip - 3 sets - 30 hold LAQ, changed angle holding arms for terminal knee ext at different ranges 10 r reps each. Dangling/swinging R LE on elevated surface Education provided in stretching, strengthening, ROM and progression of ex in PT. Fall prevention educated. Gait & Stair Training Gait & Stair Training Comments stairs ascending pain today, step to pattern descending less pain, reciprocal Treatment Minutes Timed Code Treatment Minutes 45 Total Treatment Time 45 Billing Units Therapeutic Exercise Units 3 Assessment/Impression Assessment/Impression Joleen has been undergoing PT for R knee pain with initial improvements with pain reducing, ROM, strength improving and amb improving. Pain increased R knee with feelings of LE giving out. She saw Dr. Mauricio and had an MRI with dx of R lateral meniscal tear, grade IV patellar chondromalacia, R patellofemoral and lateral compartment arthritis. She chose to return to PT instead of pursuing an injection at this time. Pain persists with stairs and feelings of knee instability/locking up with walking. Pt had stopped her ex until she saw Dr. Mauricio. She returns and was instructed in strengthening, avoiding deep bends, care on stairs. We discussed ways to progress her strength, mobility, and flexibility within pain constraints. Pt will benefit from weekly PT to advance strength, reduce pain, goal to return to reciprocal stairs and community mobility, recreational activities pain free. Continue with PT POC [ End ] Primary Functional Limitations impaired AROM, weakness, and pain limiting functional mobility Plan of Care Physical Therapy Goals STG's to be achieved in 2-3 weeks: 1.) Decrease pain to 4/10 at worst or less. - met 08/11/24 2.) Increase right hip strength to 4+/5 or greater. 3.) Joleen with be independent and compliant with HEP to help facilitate strengthening and while decreasing pain. LTG's to be met in 6-8 weeks: 1.) Decrease pain to 2/10 at worst or less. 2.) Increase right knee strength to 4+/5 or greater pain free. 3.) Improve right knee active range of motion 0-130 pain free. 4.) Joleen will be able to return to walking program without pain. Daily Plan of Care Continue per POC Daily Plan of Care Comments 1-2x/week for 6-8 weeks Recertification Information Initial Certification Date 08/04/24 Recertification Start Date 10/13/24 Recertification Due Date 11/01/24 Reasons to Continue Skilled Therapy pain R knee, impaired ROM, strength, difficulty amb. Pt did receive MRI and eval by ortho with request to cont PT, return if having pain for possible steroid injection. Rehabilitation Potential good Provider Signature Shows Agreement With POC & Medical Necessity Physician Comment/Change Comment or Changes Physician NPI Number #
== END 2024-12-01 17:13 | disposition home or self-care (01) ==
PROVIDERS: PCP Family Medicine; Visit Provider Family Medicine
DX: M25.561 Pain in right knee (principal); Z51.89 Encounter for other specified aftercare
CPT/HCPCS: 97110; 97112; 97161; 97530

== ENCOUNTER 2024-11-26 07:51 | Outpatient (CLI) | payer MEDICAID, SELFPAY ==
--- NOTE | 2024-11-26 09:33 | P.ANES_ITS ---
Anesthesia Charges Start Date/Time Anesthesia Start Date: 11/26/24 Anesthesia Start Time: 08:55 Stop Date/Time Anesthesia Stop Date: 11/26/24 Anesthesia Stop Time: 09:33 Coding CPT Codes CPT Codes: MIRNA LWBritta INTST NDSC NOS - [id number] ([id number]) P2 - PATIENT W/MILD SYST DISEASE, QX - AUTOMATION CONTROL TECHNICIAN SVC W/ MD MED DIRECTION, QK - BREAD PANNER 2-4 CNCRNT ANES PROC
--- NOTE | 2024-11-26 09:33 | W.ANESCHARGE ---
Anesthesia Charges Start Date/Time Anesthesia Start Date: 11/26/24 Anesthesia Start Time: 08:55 Stop Date/Time Anesthesia Stop Date: 11/26/24 Anesthesia Stop Time: 09:33 Coding CPT Codes CPT Codes: MIRNA LWBritta INTST NDSC NOS - [id number] ([id number]) P2 - PATIENT W/MILD SYST DISEASE, QX - RUBBER MOULDING MACHINE OPERATOR SVC W/ MD MED DIRECTION, QK - ONLINE EDITOR 2-4 CNCRNT ANES PROC
--- NOTE | 2024-11-26 09:51 | P.ANES_ITS ---
Anesthesia Charges Start Date/Time Anesthesia Start Date: 11/26/24 Anesthesia Start Time: 08:55 Stop Date/Time Anesthesia Stop Date: 11/26/24 Anesthesia Stop Time: 09:33 Coding CPT Codes CPT Codes: MIRNA LWR INTST NDSC NOS - [id number] ([id number]) QK - INSPECTOR HAIRSPRING TRUING 2-4 CNCRNT MIRNA PROC, QX - SUPERVISOR BAKERY SANITATION SVC W/ MD MED DIRECTION, P2 - PATIENT W/MILD SYST DISEASE
--- NOTE | 2024-11-26 09:51 | W.ANESCHARGE ---
Anesthesia Charges Start Date/Time Anesthesia Start Date: 11/26/24 Anesthesia Start Time: 08:55 Stop Date/Time Anesthesia Stop Date: 11/26/24 Anesthesia Stop Time: 09:33 Coding CPT Codes CPT Codes: MIRNA LWR INTST NDSC NOS - [id number] ([id number]) QK - MASONRY CONTRACTOR ADMINISTRATOR 2-4 CNCRNT MIRNA PROC, QX - SAFE DEPOSIT ATTENDANT SVC W/ MD MED DIRECTION, P2 - PATIENT W/MILD SYST DISEASE
== END 2024-11-26 07:52 | disposition home or self-care (01) ==
PROVIDERS: PCP Family Medicine; Visit Provider Surgery
DX: Z12.11 Encounter for screening for malignant neoplasm of colon (principal); Z86.0109 Personal history of other colon polyps; K64.4 Residual hemorrhoidal skin tags; D12.3 Benign neoplasm of transverse colon; D12.4 Benign neoplasm of descending colon
CPT/HCPCS: 00811; 45385; 88305; J2704